=== PATIENT | male | born 1980 | race African-American/Black ===

== ENCOUNTER 2016-12-11 12:00 | Inpatient (IN) | payer OTHER ==
[2016-12-11] MEDS ORDERED: MORPHINE SULFATE 2 MG/ML SYRINGE IVP STA (12:25)
[2016-12-11] MEDS ORDERED: ONDANSETRON 4 MG/2 ML VIAL IVP STA (12:25)
[2016-12-11] MEDS ORDERED: SODIUM CHLORIDE 0.9% 500 ML IV STA (12:25)
--- NOTE | 2016-12-11 12:46 | ED ---
Abdominal Pain HPI - General Chief Complaint: Abdominal Pain Stated Complaint: Abdominal Pain Time Seen by Provider: 12/11/16 12:21 Source: patient, RN notes reviewed Mode of arrival: ambulatory Limitations: no limitations - History of Present Illness Initial Comments: 36-year-old male presents emergency Department chief complaint lower abdominal pain. Patient states his abdominal pain started yesterday worse today. Patient states is slightly nausea no vomiting. Patient states he is constipated feels that he has to go. Patient states there's severe pain right lower quadrant filling extend over the left side. Patient denies any fever, chills. Denies any chest pain, shortness breath, dysuria, hematuria, flank pain. Patient had no prior abdominal surgeries. - Related Data Allergies Allergy/AdvReac Type Severity Reaction Status Date / Time No Known Allergies Allergy Verified 12/11/16 12:07 Review of Systems ROS Statement: Those systems with pertinent positive or pertinent negative responses have been documented in the HPI. ROS Other: All systems not noted in ROS Statement are negative. Past Medical History Past Medical History: Coronary Artery Disease (CAD), Myocardial Infarction ([place]) History of Any Multi-Drug Resistant Organisms: None Reported Past Surgical History: Heart Catheterization With Stent Past Psychological History: No Psychological Hx Reported Smoking Status: Current every day smoker Past Alcohol Use History: Daily Past Drug Use History: Marijuana General Exam Limitations: no limitations General appearance: alert, in no apparent distress Head exam: Present: atraumatic, normocephalic, normal inspection Respiratory exam: Present: normal lung sounds bilaterally. Absent: respiratory distress, wheezes, rales, rhonchi, stridor Cardiovascular Exam: Present: normal rhythm, tachycardia, normal heart sounds. Absent: systolic murmur, diastolic murmur, rubs, gallop, clicks GI/Abdominal exam: Present: soft, tenderness (Tenderness diffusely to the lower abdomen), normal bowel sounds. Absent: distended, guarding, rebound, rigid Back exam: Absent: CVA tenderness (R), CVA tenderness (L) Neurological exam: Present: alert, oriented X3, CN II-XII intact Skin exam: Present: warm, dry, intact, normal color. Absent: rash Course Vital Signs 12/11/16 12/11/16 12:03 14:07 Temperature 97.5 F L Pulse Rate 110 H 77 Respiratory 20 20 Rate Blood Pressure 190/124 180/77 O2 Sat by Pulse 99 99 Oximetry Medical Decision Making - Lab Data Result diagrams: 12/11/16 13:25 12/11/16 13:25 Lab Results 12/11/16 12/11/16 12/11/16 Range/Units 13:25 13:25 15:15 WBC 13.9 H (3.8-10.6) k/uL RBC 5.44 (4.30-5.90) m/uL Hgb 16.9 (13.0-17.5) gm/dL Hct 49.6 (39.0-53.0) % MCV 91.2 (80.0-100.0) fL MCH 31.1 (25.0-35.0) pg MCHC 34.1 (31.0-37.0) g/dL RDW 13.0 (11.5-15.5) % Plt Count 278 (150-450) k/uL Neutrophils % 78 % Lymphocytes % 15 % Monocytes % 4 % Eosinophils % 2 % Basophils % 0 % Neutrophils # 10.8 H (1.3-7.7) k/uL Lymphocytes # 2.0 (1.0-4.8) k/uL Monocytes # 0.6 (0-1.0) k/uL Eosinophils # 0.3 (0-0.7) k/uL Basophils # 0.0 (0-0.2) k/uL Sodium 139 (137-145) mmol/L Potassium 4.3 (3.5-5.1) mmol/L Chloride 102 (98-107) mmol/L Carbon Dioxide 25 (22-30) mmol/L Anion Gap 12 mmol/L BUN 13 (9-20) mg/dL Creatinine 0.90 (0.66-1.25) mg/dL Est GFR (MDRD) Af Amer >60 (>60 ml/min/1.73 sqM) Est GFR (MDRD) Non-Af >60 (>60 ml/min/1.73 sqM) Glucose 120 H (74-99) mg/dL Calcium 10.0 (8.4-10.2) mg/dL Total Bilirubin 1.2 (0.2-1.3) mg/dL AST 86 H (17-59) U/L ALT 43 (21-72) U/L Alkaline Phosphatase 107 (38-126) U/L Total Protein 8.0 (6.3-8.2) g/dL Albumin 4.6 (3.5-5.0) g/dL Amylase 102 (30-110) U/L Lipase 481 H (23-300) U/L Urine Color Yellow Urine Appearance Clear (Clear) Urine pH 7.0 (5.0-8.0) Urine Protein 1+ H (Negative) Urine Glucose (UA) Negative (Negative) Urine Ketones Negative (Negative) Urine Blood Negative (Negative) Urine Nitrate Negative (Negative) Urine Bilirubin Negative (Negative) Urine Urobilinogen <2.0 (<2.0) mg/dL Ur Leukocyte Esterase Negative (Negative) Urine RBC <1 (0-5) /hpf Urine WBC 1 (0-5) /hpf Urine Mucus Occasional H (None) /hpf Disposition Clinical Impression: Alcoholic pancreatitis, Abdominal pain Disposition: ADMITTED IP TO THIS [facility] Condition: Good
[2016-12-11 13:42] LABS: Basophils % (A) 0 %; CH 32.4; CHCM 35.7; Eosinophils # (A) 0.3 k/uL (0-0.7); Eosinophils % (A) 2 %; HCT 49.6 % (39.0-53.0); HDW 2.49; HGB 16.9 gm/dL (13.0-17.5); Luc # (Auto) 0.18; Luc % (Auto) 1; Lymphocytes % (A) 15 %; MCH 31.1 pg (25.0-35.0); MCHC 34.1 g/dL (31.0-37.0); MCV 91.2 fL (80.0-100.0); Mean Platelet Volume 7.3; Monocytes # (A) 0.6 k/uL (0-1.0); Monocytes % (A) 4 %; Neutrophils # (A) 10.8 k/uL (1.3-7.7); Neutrophils % (A) 78 %; RBC 5.44 m/uL (4.30-5.90); WBC 13.9 k/uL (3.8-10.6); WBC (Perox) 15.39
--- NOTE | 2016-12-11 13:44 | XR ---
EXAMINATION TYPE: XR KUB DATE OF EXAM: 12/11/2016 1:38 PM COMPARISON: NONE HISTORY: Abdominal pain and vomiting TECHNIQUE: 2 views FINDINGS: There is no sign of intestinal obstruction or pneumoperitoneum. Fecal pattern is normal. Th ere is no sign of a mass. Lung bases are clear. There are no pathologic calcifications over the kidne ys. IMPRESSION: Nonacute abdomen.
[2016-12-11 13:54] LABS: Amylase 102 U/L (30-110); Anion Gap 12 mmol/L; Carbon Dioxide 25 mmol/L (22-30); Chloride 102 mmol/L (98-107); Glucose 120 mg/dL (74-99); Non-African American GFR(MDRD) >60 (>60 ml/min/1.73 sqM); Sodium 139 mmol/L (137-145); Total Bilirubin 1.2 mg/dL (0.2-1.3)
[2016-12-11 13:56] LABS: ALT 43 U/L (21-72); AST 86 U/L (17-59); Alkaline Phosphatase 107 U/L (38-126); Blood Urea Nitrogen 13 mg/dL (9-20); Potassium 4.3 mmol/L (3.5-5.1)
[2016-12-11] MEDS ORDERED: RX INFO: IV CONTRAST WAS GIVEN 1 EACH MISC MISCELLANE PRN (14:05)
--- NOTE | 2016-12-11 14:40 | CT ---
EXAMINATION TYPE: CT abdomen pelvis w con DATE OF EXAM: 12/11/2016 2:34 PM COMPARISON: NONE HISTORY: Generalized pain CT DLP: 543.9 mGycm Automated exposure control for dose reduction was used. TECHNIQUE: Helical acquisition of images was performed from the lung bases through the pelvis. CONTRAST: Performed without Oral Contrast and with IV Contrast, patient injected with 100 mL of Omnipaque 300. FINDINGS: Lung bases are clear. There is no pleural effusion. Liver spleen gallbladder appear normal. Bile ducts are not dilated. There is no adrenal mass. Kidneys show satisfactory contrast opacification. There is no hydronephrosis. There is no retroperitoneal ad enopathy. There is some mild fat stranding around the anterior aspect of the pancreatic head. Appendix appears normal. I see no intestinal wall thickening. There are no dilated loops. I see no du odenal wall thickening. Bony structures are intact. Bladder distends smoothly. There is no sign of a pelvic mass. There is no free fluid in the pelvis. IMPRESSION: THERE IS MILD FAT STRANDING AROUND THE PANCREATIC HEAD THAT IS SUGGESTIVE OF FOCAL PANCREATITIS. NO D ISCRETE MASS SEEN.
[2016-12-11 15:36] LABS: Appearance,Urine Clear (Clear); Bilirubin,Urine Negative (Negative); Glucose,Urine (UA) Negative (Negative); Ketones,Urine Negative (Negative); Leukocyte Esterase,Urine Negative (Negative); Mucus,Urine Occasional /hpf; Nitrite,Urine Negative (Negative); Particle Count 2000; Protein,Urine 1+ (Negative); RBC,Urine <1 /hpf (0-5); UA Billing (MACRO vs. MICRO) MICRO; Urobilinogen,Urine <2.0 mg/dL (<2.0); WBC,Urine 1 /hpf (0-5)
[2016-12-11] MEDS ORDERED: MORPHINE SULFATE 4 MG/ML SYRINGE IV PRN (15:48)
[2016-12-11] MEDS ORDERED: NALOXONE 0.4 MG/ML 1 ML VIAL IV PRN (15:48)
[2016-12-11] MEDS ORDERED: ONDANSETRON 4 MG/2 ML VIAL IVP PRN (15:48)
[2016-12-11] MEDS: SODIUM CHLORIDE 0.9% 1,000 ML IV SCH ×2 (16:06→18:00)
[2016-12-11] MEDS ORDERED: LORazepam 2 MG/ML SYRINGE IV PRN ×2 (17:05)
[2016-12-11] MEDS ORDERED: THIAMINE 100 MG/ML 2 ML VIAL IM STA (17:08)
[2016-12-11 17:09] LABS: Specific Gravity,Urine >1.050 (1.001-1.035)
[2016-12-11 17:32] VITALS: BMI 24.3
[2016-12-11] MEDS: cloNIDine HCL 0.1 MG TAB PO SCH ×2 (17:56→23:23)
[2016-12-11] MEDS: THIAMINE 100 MG TAB PO SCH (17:56)
[2016-12-11] MEDS: HYDROmorphone 1 MG/ML 1 ML SYRINGE IVP PRN ×3 (17:56→23:25)
--- NOTE | 2016-12-11 19:16 | HP ---
DATE OF ADMISSION: CHIEF COMPLAINT: Abdominal pain. HISTORY OF PRESENT ILLNESS: This is first known admission for this 36-year-old Afro[place] who drinks heavily. He stopped drinking about 2 days ago. He has had epigastric pain for the last 30 hours and grew more severe. He has had some nausea and vomiting. He came to emergency room where his lipase was over 400. Amylase was normal. REVIEW OF SYSTEMS: He has had no fever, chills, problems with diabetes, blackouts, seizures, heart disease, kidney disease, diabetes, etc. Past medical history is otherwise unremarkable and noncontributory. He does have coronary artery disease and has had a stent placed. He is not allergic to any medication. He does take lisinopril for his blood pressure and is also on Plavix. Blood alcohol was over 500. He does smoke a pack of cigarettes a day. PHYSICAL EXAMINATION: Blood pressure 188/114 with a pulse of 94, respirations of 41, and he is afebrile. In general, he appeared to be slender and uncomfortable. Skin was dry. Lymph nodes not enlarged. Head, ears, eyes, nose, mouth, and throat were normal. Neck veins not distended. Thyroid is not enlarged. Chest is clear. Cardiac exam demonstrated sinus tachycardia. The abdomen is flat and tender over the epigastrium. Bowel sounds present. Extremities are normal. Neurologically, he is intact. ADMITTING DIAGNOSIS: 1. Alcoholic pancreatitis. 2. Alcoholism. 3. Hypertension. PLAN: 1. Bed rest. 2. IV fluids. 3. N.p.o. 4. Analgesia. 5. Control hypertension with Catapres 0.3 t.i.d. 6. Drug screen.
[2016-12-11] MEDS: NICOTINE 14MG/24HR PATCH TRANSDERM SCH (20:23)
[2016-12-12] MEDS: HYDROmorphone 1 MG/ML 1 ML SYRINGE IVP PRN ×8 (01:25→21:10)
[2016-12-12] MEDS: cloNIDine HCL 0.1 MG TAB PO SCH ×3 (08:47→23:04)
[2016-12-12] MEDS: THIAMINE 100 MG TAB PO SCH ×2 (12:06→15:07)
[2016-12-12] MEDS: NICOTINE 14MG/24HR PATCH TRANSDERM SCH (12:06)
[2016-12-12] MEDS: SODIUM CHLORIDE 0.9% 1,000 ML IV SCH ×2 (12:06→23:03)
[2016-12-12] MEDS: LORazepam 2 MG/ML SYRINGE IV PRN ×2 (13:59→19:57)
--- NOTE | 2016-12-12 22:03 | PN ---
DATE OF SERVICE: 12/12/2016 CHIEF COMPLAINT: Acute pancreatitis. HISTORY OF PRESENT ILLNESS: The gentleman is doing fairly well but he is still complaining of a lot of epigastric pain and wants more narcotics. PHYSICAL EXAM: A little bit tender over the epigastrium. CHEST: Clear. CARDIAC: Normal. IMPRESSION: Pancreatitis. PLAN: Continue with conservative management. His numbers are improving.
[2016-12-12] MEDS: POLYETHYLENE GLYCOL 3350 17 GM POWD.PACK PO SCH (23:03)
[2016-12-13] MEDS: SODIUM CHLORIDE 0.9% 1,000 ML IV SCH ×3 (01:38→16:30)
[2016-12-13] MEDS: HYDROmorphone 1 MG/ML 1 ML SYRINGE IM PRN ×2 (04:56→20:07)
[2016-12-13] MEDS ORDERED: LORazepam 1 MG TAB PO STA (05:58)
[2016-12-13] MEDS: cloNIDine HCL 0.1 MG TAB PO SCH ×3 (08:03→22:59)
[2016-12-13] MEDS: POLYETHYLENE GLYCOL 3350 17 GM POWD.PACK PO SCH ×2 (08:04→20:21)
[2016-12-13] MEDS: HYDROmorphone 1 MG/ML 1 ML SYRINGE IVP PRN ×2 (08:20→22:56)
[2016-12-13] MEDS: THIAMINE 100 MG TAB PO SCH ×2 (12:58→16:29)
[2016-12-13] MEDS: NICOTINE 14MG/24HR PATCH TRANSDERM SCH (12:59)
[2016-12-13] MEDS: LORazepam 1 MG TAB PO PRN ×3 (12:59→19:59)
--- NOTE | 2016-12-13 14:27 | PN ---
DATE OF SERVICE: 12/13/2016 CHIEF COMPLAINT: Persistent epigastric pain. HISTORY OF PRESENT ILLNESS: This gentleman is still having a lot of epigastric pain. He has had no vomiting, he has had no fever or chills. The IV cannot be restarted and he will require a central line. GENERAL EXAM: His chest is clear and cardiac exam is normal and he is very tender over the epigastrium. IMPRESSION Acute alcoholic pancreatitis. PLAN: 1. We have started IV. 2. Repeat labs.
[2016-12-14] MEDS: LORazepam 1 MG TAB PO PRN ×6 (01:32→21:57)
[2016-12-14] MEDS: HYDROmorphone 1 MG/ML 1 ML SYRINGE IVP PRN (02:01)
[2016-12-14] MEDS: SODIUM CHLORIDE 0.9% 1,000 ML IV SCH ×3 (03:02→16:23)
[2016-12-14] MEDS: HYDROmorphone 1 MG/ML 1 ML SYRINGE IM PRN (04:30)
[2016-12-14] MEDS: HYDROcodone/APAP 7.5-325MG 1 EACH TAB PO PRN ×3 (09:36→19:51)
[2016-12-14] MEDS: cloNIDine HCL 0.1 MG TAB PO SCH ×3 (09:36→21:55)
[2016-12-14] MEDS: NICOTINE 14MG/24HR PATCH TRANSDERM SCH (09:37)
[2016-12-14] MEDS: POLYETHYLENE GLYCOL 3350 17 GM POWD.PACK PO SCH ×2 (09:37→19:51)
[2016-12-14 10:03] LABS: ALT 33 U/L (21-72); AST 59 U/L (17-59); Alkaline Phosphatase 104 U/L (38-126); Anion Gap 11 mmol/L; Blood Urea Nitrogen 19 mg/dL (9-20); Calcium 8.6 mg/dL (8.4-10.2); Carbon Dioxide 26 mmol/L (22-30); Chloride 100 mmol/L (98-107); Cholesterol 118 mg/dL (<200); Glucose 159 mg/dL (74-99); HDL Cholesterol 61 mg/dL (40-60); Non-African American GFR(MDRD) >60 (>60 ml/min/1.73 sqM); Potassium 4.4 mmol/L (3.5-5.1); Sodium 137 mmol/L (137-145); Total Bilirubin 1.7 mg/dL (0.2-1.3); Total Protein 6.5 g/dL (6.3-8.2); Triglycerides 68 mg/dL (<150)
[2016-12-14 10:21] LABS: Amylase 482 U/L (30-110)
[2016-12-14] MEDS: THIAMINE 100 MG TAB PO SCH ×2 (10:49→16:24)
--- NOTE | 2016-12-14 11:33 | P.PN ---
Subjective 56-year-old gentleman who presented admission emergency room with a chief complaint of developing lower abdominal pain. Patient stated he felt slightly nausea no vomiting. Patient stated the pain was in the right lower quadrant extended to the left. There was no fever chills. Patient has had no prior abdominal surgeries patient reportedly drinks alcohol daily. Patient was admitted and treated for acute pancreatitis. The lipase on the was 1976, amylase 482 patient was started on IV fluids and bowel rest Objective - Vital Signs Vital signs: Vital Signs Temp 98.4 F 12/14/16 07:00 Pulse 111 H 12/14/16 07:00 Resp 16 12/14/16 08:00 BP 134/82 12/14/16 07:00 Pulse Ox 94 L 12/14/16 07:00 Intake & Output 12/13/16 12/14/16 12/14/16 18:59 06:59 18:59 Intake Total 120 620 Output Total 100 100 Balance 20 520 Intake: IV 500 Sodium Chloride 0.9% 1, 500 000 ml @ 125 mls/hr IV . Q8H [facility] Rx#:[id number] Oral 120 120 Output: Urine 100 100 Other: Voiding Method Toilet Toilet Toilet # Voids 2 3 - Exam Physical exam 36-year-old resting in bed continues to report having diffuse abdominal pain Lungs essentially clear adequate air movement Heart S1-S2 audible regular Abdomen diffuse tenderness across the abdominal wall Extremities no edema noted - Labs CBC & Chem 7: 12/11/16 13:25 12/14/16 09:13 Labs: Abnormal Lab Results - Last 24 Hours (Table) 12/14/16 Range/Units 09:13 Glucose 159 H (74-99) mg/dL Total Bilirubin 1.7 H (0.2-1.3) mg/dL HDL Cholesterol 61 H (40-60) mg/dL Amylase 482 H* (30-110) U/L Lipase 1976 H (23-300) U/L Assessment and Plan Plan: Impression Present on admission abdominal pain suspect due to acute pancreatitis due to chronic alcoholism Present on admission elevated lipase amylase CAT scan abdomen and pelvis suggestive of focal pancreatitis Plan Continue IV fluid as ordered Pain control Clear liquid diet DVT and GI prophylaxis Further recommendations pending The above dictated assessment and findings were discussed with dr jackson . Impression and the plan of care have been dictated as directed. Mayra Ovalle nurse practitioner acting as a scribe for dr schulte
--- NOTE | 2016-12-14 21:38 | PN ---
DATE OF SERVICE: 12/14/2016 CHIEF COMPLAINT: Continued epigastric pain due to pancreatitis. HISTORY OF PRESENT ILLNESS: The gentleman is just about the same. A central line has been placed. PHYSICAL EXAMINATION: He is afebrile. Chest is clear. He is still pump operator over the epigastrium. Bowel sounds are diminished. IMPRESSION: 1. Pancreatitis. 2. Dehydration. PLAN: Continue to follow for his pancreatitis. Hopefully home soon.
[2016-12-14] MEDS: FAMOTIDINE 20 MG TAB PO SCH (21:55)
[2016-12-15] MEDS: HYDROcodone/APAP 7.5-325MG 1 EACH TAB PO PRN ×4 (00:22→21:53)
[2016-12-15] MEDS: LORazepam 1 MG TAB PO PRN ×3 (00:23→05:06)
[2016-12-15] MEDS: SODIUM CHLORIDE 0.9% 1,000 ML IV SCH ×3 (01:37→17:57)
[2016-12-15] MEDS: POLYETHYLENE GLYCOL 3350 17 GM POWD.PACK PO SCH ×2 (08:30→21:54)
[2016-12-15] MEDS: cloNIDine HCL 0.1 MG TAB PO SCH ×2 (08:30→21:54)
[2016-12-15] MEDS: FAMOTIDINE 20 MG TAB PO SCH ×2 (08:30→21:54)
[2016-12-15] MEDS: NICOTINE 14MG/24HR PATCH TRANSDERM SCH (08:31)
[2016-12-15 08:35] LABS: ALT 32 U/L (21-72); AST 40 U/L (17-59); Alkaline Phosphatase 94 U/L (38-126); Amylase 205 U/L (30-110); Anion Gap 8 mmol/L; Blood Urea Nitrogen 13 mg/dL (9-20); Calcium 7.8 mg/dL (8.4-10.2); Carbon Dioxide 25 mmol/L (22-30); Chloride 101 mmol/L (98-107); Glucose 114 mg/dL (74-99); Non-African American GFR(MDRD) >60 (>60 ml/min/1.73 sqM); Potassium 3.6 mmol/L (3.5-5.1); Sodium 134 mmol/L (137-145); Total Bilirubin 1.9 mg/dL (0.2-1.3); Total Protein 5.4 g/dL (6.3-8.2)
--- NOTE | 2016-12-15 09:24 | P.PN ---
Subjective 36-year-old male being seen in rounds currently is taking a clear liquid diet patient states less abdominal pain but abdominal pain persist patient states " I just moved to this area from [facility] prior to moving was drinking alcohol at least 3 times a week since moving to this area has not drank any alcohol. Patient denies any nausea vomiting. Is a current every day smoker. Patient had no IV access for the last 48 hours repeat labs lipase and amylase were trending up. Did gain IV access on the patient was rehydrated amylase and lipase are currently trending down the lipase is down to 619 in the amylase 205 Objective - Vital Signs Vital signs: Vital Signs Temp 98.3 F 12/15/16 07:00 Pulse 81 12/15/16 07:00 Resp 16 12/15/16 07:00 BP 125/62 12/15/16 07:00 Pulse Ox 92 L 12/15/16 07:00 Intake & Output 12/14/16 12/15/16 12/15/16 18:59 06:59 18:59 Intake Total 750 2325 Output Total 100 Balance 750 2225 Intake: IV 750 1625 Sodium Chloride 0.9% 1, 750 1625 000 ml @ 125 mls/hr IV . Q8H [facility] Rx#:[id number] Oral 700 Output: Urine 100 Other: Voiding Method Toilet Toilet Toilet # Voids 2 2 - Exam Physical exam 36-year-old resting in bed sitting up taking a diet states less abdominal pain Lungs essentially clear adequate air movement no shortness of breath Heart S1-S2 audible regular Abdomen diffuse tenderness across the abdominal wall reports no nausea vomiting Extremities no edema noted - Labs CBC & Chem 7: 12/11/16 13:25 12/15/16 07:28 Labs: Abnormal Lab Results - Last 24 Hours (Table) 12/14/16 12/15/16 Range/Units 09:13 07:28 Sodium 134 L (137-145) mmol/L Glucose 159 H 114 H (74-99) mg/dL Calcium 7.8 L (8.4-10.2) mg/dL Total Bilirubin 1.7 H 1.9 H (0.2-1.3) mg/dL Total Protein 5.4 L (6.3-8.2) g/dL Albumin 2.7 L (3.5-5.0) g/dL HDL Cholesterol 61 H (40-60) mg/dL Amylase 482 H* 205 H (30-110) U/L Lipase 1976 H 619 H (23-300) U/L Assessment and Plan Plan: Impression Present on admission abdominal pain suspect due to acute pancreatitis due to chronic alcoholism Present on admission elevated lipase amylase likely due to acute pancreatitis CAT scan abdomen and pelvis suggestive of acute pancreatitis Chronic alcoholism Positive urine drug screen on admission marijuana and opiate Plan Continue IV fluid as ordered Pain control Clear liquid diet advance diet DVT and GI prophylaxis Prepped for discharge soon Further recommendations pending The above dictated assessment and findings were discussed with dr jackson . Impression and the plan of care have been dictated as directed. Mayra Ovalle nurse practitioner acting as a scribe for dr schulte
[2016-12-15] MEDS: THIAMINE 100 MG TAB PO SCH ×2 (11:36→18:05)
[2016-12-15] MEDS: LORazepam 0.5 MG TAB PO PRN (18:05)
--- NOTE | 2016-12-15 18:10 | PN ---
DATE OF SERVICE: 12/15/2016 CHIEF COMPLAINT: Pancreatitis. HISTORY OF PRESENT ILLNESS: This gentleman continues to struggle. He still has epigastric pain and his numbers are not responding. PHYSICAL EXAMINATION: He is still operator in the epigastrium. His chest is clear. Cardiac exam is normal. IMPRESSION: Pancreatitis. PLAN: Continue to follow amylase and lipase as well as his discomfort.
[2016-12-16] MEDS: LORazepam 0.5 MG TAB PO PRN (05:00)
[2016-12-16] MEDS: HYDROcodone/APAP 7.5-325MG 1 EACH TAB PO PRN (06:05)
[2016-12-16] MEDS: SODIUM CHLORIDE 0.9% 1,000 ML IV SCH (06:27)
[2016-12-16 07:59] VITALS: BP 179/98; PULSE 86; RESP 16; TEMP 99
[2016-12-16] MEDS: FAMOTIDINE 20 MG TAB PO SCH (08:31)
[2016-12-16] MEDS: NICOTINE 14MG/24HR PATCH TRANSDERM SCH (08:31)
[2016-12-16] MEDS: POLYETHYLENE GLYCOL 3350 17 GM POWD.PACK PO SCH (08:32)
[2016-12-16] MEDS: cloNIDine HCL 0.1 MG TAB PO SCH (08:32)
[2016-12-16 09:18] LABS: Basophils % (A) 0 %; CH 31.6; CHCM 33.2; Eosinophils # (A) 0.1 k/uL (0-0.7); Eosinophils % (A) 1 %; HCT 42.5 % (39.0-53.0); Luc % (Auto) 3; Lymphocytes # (A) 1.1 k/uL (1.0-4.8); Lymphocytes % (A) 8 %; MCH 31.3 pg (25.0-35.0); MCHC 32.8 g/dL (31.0-37.0); MCV 95.6 fL (80.0-100.0); Mean Platelet Volume 7.6; Monocytes # (A) 1.1 k/uL (0-1.0); Monocytes % (A) 8 %; Neutrophils # (A) 11.9 k/uL (1.3-7.7); Neutrophils % (A) 80 %; RBC 4.44 m/uL (4.30-5.90); RDW 12.8 % (11.5-15.5); WBC 14.8 k/uL (3.8-10.6); WBC (Perox) 15.37
[2016-12-16 09:31] LABS: HGB 13.9 gm/dL (13.0-17.5)
[2016-12-16 09:34] LABS: Amylase 84 U/L (30-110)
--- NOTE | 2016-12-16 10:25 | P.DS ---
Providers Date of admission: 12/12/16 08:41 Expected date of discharge: 12/16/16 Attending physician: Howard Schulte Primary care physician: Physician Nonstaff Hospital Course: 36-year-old admitted on the day of admission to the emergency room after patient stated that he developed left lower abdominal pain radiated across the abdomen. Stated he felt nauseated. Patient stated that he just moved to this area from [place] prior to moving was drinking alcohol at least 3-4 times a week stated he moved to this area to not be around people who drink alcohol. Patient was admitted to the services of the attending. Patient had no IV access for the first 48 hours the lipase and amylase were up. IV access was obtainable on the patient was rehydrated. The amylase and lipase trended down. Patient's abdominal pain had improved. Patient was felt to be appropriate proceed with a discharge to home. Patient was counseled at length about stop drinking alcohol . Was discussed with the patient by the primary care provider the patient would not be given a prescription for [place] and the patient could use [id number] Tylenol no more than 4 in a day for abdominal discomfort. On admission the amylase 482 the day of discharge down to 84 lipase on 12/15/1975 day of discharge down to 251 patient's urine drug screen was positive for opiates and marijuana Impression discharge diagnosis Present on admission abdominal pain suspect due to acute pancreatitis due to chronic alcoholism Present on admission elevated lipase amylase likely due to acute pancreatitis CAT scan abdomen and pelvis suggestive of acute pancreatitis Chronic alcoholism Positive urine drug screen on admission marijuana and opiate The above dictated assessment and findings were discussed with dr schulte Impression and the plan of care have been dictated as directed. Mayra Ovalle nurse practitioner acting as a scribe for dr schulte Patient Condition at Discharge: Good Plan - Discharge Summary New Discharge Prescriptions: Acetaminophen Tab [Tylenol Tab] 650 mg PO Q4H PRN #30 tablet PRN Reason: Muscle Pain Discharge Medication List Acetaminophen Tab [Tylenol Tab] 650 mg PO Q4H PRN #30 tablet 12/16/16 [Rx] Follow up Appointment(s)/Referral(s): Howard Schulte MD [STAFF PHYSICIAN] - 12/18/16 11:10 am Activity/Diet/Wound Care/Special Instructions: Patient was instructed about stop drinking alcohol Discharge Disposition: HOME SELF-CARE
--- NOTE | 2016-12-16 20:31 | PN ---
CHIEF COMPLAINT: Pancreatitis. HISTORY OF PRESENT ILLNESS: This gentleman is doing well and his enzymes are back down. He can go home, but he is very worried about pain medicine at home, but he is told to take plain Tylenol. PHYSICAL EXAM: Chest is clear and cardiac is normal. The abdomen is soft and flat. IMPRESSION: 1. Alcoholic pancreatitis. 2. Alcoholism. PLAN: Home today and this will be arranged by the nurse practitioner.
== END 2016-12-16 10:20 | disposition left against medical advice (07) | DRG 440 ==
LOC: EC 12:00 → 3OBS 15:55 → OBSVTOIN 12-12 08:41 → 5ONC 12-12 09:30
PROVIDERS: ADMIT Family Medicine; ATTEND Family Medicine
DX: K85.20 Alcohol induced acute pancreatitis without necrosis or infection (principal); I10 Essential (primary) hypertension; E86.0 Dehydration; K59.00 Constipation, unspecified; I25.2 Old myocardial infarction; Z71.41 Alcohol abuse counseling and surveillance of alcoholic; F10.20 Alcohol dependence, uncomplicated; F12.90 Cannabis use, unspecified, uncomplicated; I25.10 Atherosclerotic heart disease of native coronary artery without angina pectoris; R00.0 Tachycardia, unspecified; F17.210 Nicotine dependence, cigarettes, uncomplicated; R11.2 Nausea with vomiting, unspecified; Z79.02 Long term (current) use of antithrombotics/antiplatelets; Z79.899 Other long term (current) drug therapy; Z95.5 Presence of coronary angioplasty implant and graft; Z53.21 Procedure and treatment not carried out due to patient leaving prior to being seen by health care provider; Y90.0 Blood alcohol level of less than 20 mg/100 ml
CPT/HCPCS: 36415; 74000; 74177; 80053; 80061; 80306; 81001; 82150; 83690; 85025; 96361; 96374; 96375; 96376; 99285

== ENCOUNTER 2017-02-09 10:23 | Observation (INO) | payer OTHER ==
[2017-02-09] MEDS ORDERED: NITROGLYCERIN SL TABS 0.4 MG TAB SUBLINGUAL STA ×3 (10:49)
[2017-02-09] MEDS ORDERED: ASPIRIN 81 MG CHEW PO STA (10:49)
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
[2017-02-09] MEDS ORDERED: LORazepam 2 MG/ML SYRINGE IV STA (11:11)
[2017-02-09 11:15] LABS: Basophils % (A) 1 %; CH 32.3; CHCM 34.6; Eosinophils # (A) 0.1 k/uL (0-0.7); Eosinophils % (A) 2 %; HCT 46.8 % (39.0-53.0); HDW 2.53; HGB 15.7 gm/dL (13.0-17.5); Luc # (Auto) 0.14; Luc % (Auto) 2; Lymphocytes % (A) 33 %; MCH 31.5 pg (25.0-35.0); MCHC 33.6 g/dL (31.0-37.0); Mean Platelet Volume 6.9; Monocytes # (A) 0.3 k/uL (0-1.0); Monocytes % (A) 5 %; Neutrophils # (A) 3.5 k/uL (1.3-7.7); Neutrophils % (A) 57 %; RBC 4.99 m/uL (4.30-5.90); RDW 15.3 % (11.5-15.5); WBC (Perox) 6.03
[2017-02-09 11:18] LABS: ALT 58 U/L (21-72); AST 134 U/L (17-59); Alkaline Phosphatase 78 U/L (38-126); Amylase 69 U/L (30-110); Anion Gap 13 mmol/L; Blood Urea Nitrogen 11 mg/dL (9-20); Carbon Dioxide 24 mmol/L (22-30); Chloride 108 mmol/L (98-107); Glucose 166 mg/dL (74-99); Non-African American GFR(MDRD) >60 (>60 ml/min/1.73 sqM); Sodium 145 mmol/L (137-145); Total Bilirubin 0.6 mg/dL (0.2-1.3); Total Protein 7.4 g/dL (6.3-8.2)
[2017-02-09 11:25] LABS: INR 1.1 (<1.1); Partial Thromboplastin Time 25.6 sec (22.0-30.0)
[2017-02-09] MEDS ORDERED: RX INFO: IV CONTRAST WAS GIVEN 1 EACH MISC MISCELLANE PRN (11:27)
--- NOTE | 2017-02-09 11:32 | XR ---
EXAMINATION TYPE: XR abdomen 1V DATE OF EXAM: 02/09/2017 11:23 AM COMPARISON: NONE HISTORY: Pain TECHNIQUE: One view abdominal series FINDINGS: The osseous structures are intact. The bowel gas pattern is nonspecific. Lung bases are clear. No fine spicious calcifications. IMPRESSION: 1. Nonspecific abdomen.
--- NOTE | 2017-02-09 11:34 | XR ---
EXAMINATION TYPE: XR chest 2V DATE OF EXAM: 02/09/2017 11:23 AM COMPARISON: NONE TECHNIQUE: PA and lateral views submitted. HISTORY: Chest pain FINDINGS: The lungs are clear and there is no pneumothorax, pleural effusion, or focal pneumonia. Right-sided AC joint arthropathy. IMPRESSION: 1. No acute process.
[2017-02-09 11:43] LABS: Creatine Kinase MB 1.5 ng/mL (0.0-2.4); Troponin I 0.021 ng/mL (0.000-0.034)
[2017-02-09] MEDS ORDERED: NITROGLYCERIN OINT 1 INCH/GM PACKET TOPICAL STA (12:05)
[2017-02-09] MEDS ORDERED: ATENOLOL 25 MG TAB PO STA (12:05)
--- NOTE | 2017-02-09 12:35 | CT ---
EXAMINATION TYPE: CT angio chest DATE OF EXAM: 02/09/2017 12:22 PM COMPARISON: Radiograph same date HISTORY: 36-year-old male complains of chest pain and difficulty breathing with a history of prior [place] . TECHNIQUE: Contiguous axial scanning of the chest performed with IV Contrast, patient injected with 1 00 mL of Omnipaque 350. Coronal/sagittal MIP reconstructions performed. CT DLP: 251.4 mGycm Automated exposure control for dose reduction was used. FINDINGS: The heart is normal size without pericardial effusion. Coronary vessel calcifications are present in remarkable for coronary artery disease. Aorta is normal caliber with conventional arch vessel branching anatomy. No thoracic lymphadenopathy by CT size criteria. Evaluation of the lungs shows prominent dependent atelectasis and mild diffuse bronchial wall thicken ing. There is mild emphysematous change in the upper lungs and emphysematous cyst anterior left upper lobe. Satisfactory opacification of the pulmonary arterial system. There is respiratory motion in the lower lobes. This causes significant heterogeneity within some of the basilar segmental and subsegmental b ranches of the left lower lobe. Otherwise, no evidence for pulmonary embolus. There is a small hiatal hernia. Visualized upper abdomen shows no gross abnormality. Bones: No osseous destructive process. IMPRESSION: 1. LIMITED ASSESSMENT FOR PULMONARY EMBOLUS WITHIN THE BASILAR LEFT LOWER LOBE DUE TO RESPIRATORY MOT ION. NO EVIDENCE FOR PULMONARY EMBOLUS ELSEWHERE WITHIN THE LUNGS. 2. COPD WITH MILD EMPHYSEMA. BRONCHIAL WALL THICKENING COULD REPRESENT A PROMINENT COMPONENT OF CHRON IC BRONCHITIS OR SUPERIMPOSED ACUTE BRONCHITIS. 3. SMALL HIATAL HERNIA.
[2017-02-09] MEDS ORDERED: HEPARIN SODIUM,PORCINE 5,000 UNIT/ML 1 ML VIAL IV PRN (12:41)
[2017-02-09] MEDS ORDERED: HEPARIN SODIUM,PORCINE 5,000 UNIT/ML 1 ML VIAL IV ONE (12:41)
[2017-02-09] MEDS ORDERED: NITROGLYCERIN SL TABS 0.4 MG TAB SUBLINGUAL PRN (12:41)
[2017-02-09] MEDS ORDERED: HEPARIN SODIUM,PORCINE/D5W PMX 25,000 UNIT in DEXTROSE/WATER 1 500ML.BAG IV SCH (12:45)
[2017-02-09] MEDS ORDERED: ACETAMINOPHEN TAB 500 MG TAB PO STA (15:19)
[2017-02-09] MEDS ORDERED: ACETAMINOPHEN TAB 325 MG TAB PO PRN (16:34)
[2017-02-09] MEDS ORDERED: MELATONIN 5 MG TABLET PO PRN (16:39)
[2017-02-09] MEDS: NITROGLYCERIN OINT 1 INCH/GM PACKET TOPICAL SCH (18:54)
[2017-02-09] MEDS: LISINOPRIL 20 MG TAB PO SCH (19:04)
[2017-02-09 19:18] LABS: Creatine Kinase MB 1.7 ng/mL (0.0-2.4); Troponin I 0.019 ng/mL (0.000-0.034)
[2017-02-09] MEDS ORDERED: MELATONIN 5 MG TABLET PO SCH (21:00)
[2017-02-09] MEDS ORDERED: cloNIDine HCL 0.1 MG TAB PO PRN (21:20)
[2017-02-09] MEDS ORDERED: HYDROmorphone 1 MG/ML 1 ML SYRINGE IVP PRN (21:20)
[2017-02-09] MEDS ORDERED: hydrALAZINE HCL 20 MG/ML 1 ML VIAL IVP PRN (21:20)
[2017-02-09] MEDS ORDERED: TEMAZEPAM 15 MG CAP PO PRN (21:20)
[2017-02-09] MEDS ORDERED: THIAMINE 100 MG/ML 2 ML VIAL IM STA (21:23)
[2017-02-09] MEDS ORDERED: LORazepam 2 MG/ML SYRINGE IV PRN (21:23)
[2017-02-09] MEDS: LORazepam 2 MG/ML SYRINGE IV PRN (21:49)
[2017-02-09] MEDS: METOPROLOL TARTRATE 25 MG TAB PO SCH (21:50)
[2017-02-09] MEDS: amLODIPine 5 MG TAB PO SCH (22:48)
[2017-02-09] MEDS: NICOTINE 14MG/24HR PATCH TRANSDERM SCH (22:48)
[2017-02-09] MEDS: THIAMINE 100 MG TAB PO SCH (22:53)
[2017-02-09 23:12] LABS: Creatine Kinase MB 1.5 ng/mL (0.0-2.4); Troponin I 0.013 ng/mL (0.000-0.034)
[2017-02-10] MEDS: LORazepam 2 MG/ML SYRINGE IV PRN ×2 (02:44→15:20)
[2017-02-10 03:35] LABS: Basophils # (A) 0.1 k/uL (0-0.2); Basophils % (A) 1 %; CH 32.3; CHCM 34.1; Eosinophils # (A) 0.2 k/uL (0-0.7); Eosinophils % (A) 3 %; HDW 2.52; HGB 16.1 gm/dL (13.0-17.5); Luc # (Auto) 0.16; Luc % (Auto) 3; Lymphocytes # (A) 2.3 k/uL (1.0-4.8); Lymphocytes % (A) 36 %; MCH 30.7 pg (25.0-35.0); MCHC 32.2 g/dL (31.0-37.0); MCV 95.2 fL (80.0-100.0); Mean Platelet Volume 7.1; Monocytes # (A) 0.3 k/uL (0-1.0); Monocytes % (A) 5 %; Neutrophils # (A) 3.4 k/uL (1.3-7.7); Neutrophils % (A) 52 %; RBC 5.25 m/uL (4.30-5.90); RDW 15.1 % (11.5-15.5); WBC 6.5 k/uL (3.8-10.6)
[2017-02-10 03:53] LABS: ALT 51 U/L (21-72); AST 58 U/L (17-59); Alkaline Phosphatase 79 U/L (38-126); Anion Gap 8 mmol/L; Blood Urea Nitrogen 11 mg/dL (9-20); Calcium 9.3 mg/dL (8.4-10.2); Carbon Dioxide 25 mmol/L (22-30); Chloride 103 mmol/L (98-107); Cholesterol 199 mg/dL (<200); Glucose 103 mg/dL (74-99); HDL Cholesterol 91 mg/dL (40-60); Magnesium 1.9 mg/dL (1.6-2.3); Non-African American GFR(MDRD) >60 (>60 ml/min/1.73 sqM); Potassium 3.9 mmol/L (3.5-5.1); Sodium 136 mmol/L (137-145); Triglycerides 137 mg/dL (<150)
[2017-02-10] MEDS: cloNIDine HCL 0.1 MG TAB PO SCH ×4 (04:51→21:36)
[2017-02-10] MEDS: NITROGLYCERIN OINT 1 INCH/GM PACKET TOPICAL SCH ×3 (04:52→20:48)
--- NOTE | 2017-02-10 05:18 | HP ---
DATE OF ADMISSION: CHIEF COMPLAINT: Chest pain. HISTORY OF PRESENT ILLNESS: This 36-year-old gentleman with a past medical history of CAD, history of heart attacks in 2009 and 2012 with stents, hypertension, hyperlipidemia, myocardial infarction, history of pancreatitis, EtOH, history of anxiety and depression being followed by a primary physician in [place], Dr. Salazar Fauts, was visiting friends in [place]. The patient apparently had chest pains in the anterior part of the chest which are heavy in character. The patient apparently had an argument and the pain initially felt indigestion in the chest and there is some associated shortness of breath and some sweating and because of multiple symptomatology, patient came to [facility] and was admitted for further evaluation and treatment. The patient is slightly fidgety at this time, otherwise, the creatine kinase is 240, troponin 0.021 and 0.019 and an EKG done on admission showed normal sinus rhythm and diffuse ST-T changes and poor baseline also. A chest CT was also done, which showed limited assessment for pulmonary embolism with basilar left lower lobe, otherwise, no other evidence and COPD with mild emphysema and small hiatal hernia. There is no history of any fever, rigors. No history headaches, loss of consciousness or seizures at this time. PAST MEDICAL HISTORY: History of CAD, stent, history of hypertension, hyperlipidemia, myocardial infarction, anxiety, depression. Medications prior to admission include none. ALLERGIES: SEAFOOD. FAMILY HISTORY: History of CVA, TIA, diabetes mellitus, hypertension. SOCIAL HISTORY: History of smoking, history of occasional THC, history of alcohol. REVIEW OF SYSTEMS: ENT: No history of diminished hearing or diminished vision. CARDIOVASCULAR: As mentioned earlier. RESPIRATORY: As mentioned earlier. GI: No nausea. : No dysuria. NERVOUS SYSTEM: No numbness or weakness. ALLERGY/IMMUNOLOGY: No asthma or hayfever. MUSCULOSKELETAL: As mentioned earlier. HEMATOLOGY/ONCOLOGY: No history of anemia. ENDOCRINE: No history of diabetes mellitus or hypothyroidism. CONSTITUTIONAL: As mentioned earlier. DERMATOLOGY: Negative. RHEUMATOLOGY: Negative. PSYCHIATRY: As mentioned earlier. PHYSICAL EXAMINATION: The patient is alert and oriented x3. Pulse is 64, blood pressure 194/127, respirations 14, temperature 98.1, pulse ox 99% on room air. HEENT: Conjunctivae normal. Oral mucosa moist. NECK: No jugular venous distention. No carotid bruit. No lymph node enlargement. CARDIOVASCULAR: S1 and S2, muffled. No S3, no S4. RESPIRATORY: Breath sounds diminished at the bases. No rhonchi, no crackles. ABDOMEN: Soft, nontender. No mass palpable. No hepatosplenomegaly. LEGS: No edema, no swelling. NERVOUS SYSTEM: Higher function as mentioned. Moves all 4 limbs. No focal motor or sensory deficits. LYMPHATICS: No lymphadenopathy of neck, axillae or groin. SKIN: No ulcers, rashes or bleeding. Labs are at this time shows CBC within normal limits. D-dimer 0.80. Otherwise, glucose 166, CK noted. ASSESSMENT: 1. Chest pain for evaluation, rule out unstable angina. 2. Hypertensive urgency and accelerated hypertension. 3. Increased random blood sugar. 4. Increased AST, possibly alcoholic hepatitis. 5. History of EtOH. 6. Increased CK with troponins up to 0.021. 7. on the EKG. 8. History of coronary artery disease, stents. 9. Hypertension, essential. 10. Hyperlipidemia. 11. History of myocardial infarction. 12. History of EtOH and pancreatitis recently. 13. History of head injury. 14. History of anxiety, depression, not otherwise specified. 15. History of THC. 16. FULL CODE. RECOMMENDATIONS AND DISCUSSION: This 36-year-old gentleman who presented with multiple complex medical issues. Will monitor the patient closely. Continue the current medications. Continue symptomatic treatment. We will rule out myocardial infarction. Unstable angina protocol. Otherwise, closely follow with Cardiology. Symptomatic treatment for the pain and I would also recommend a [facility] protocol, drug screens. See orders for details. We will check serum EtOH. For the blood pressure, I will recommend clonidine on a regular bases as well as p.r.n. also. Overall prognosis guarded because of multiple complex medical issues. We will closely monitor. We will also obtain a [employer] and crm consult for continued followup and evaluation including outpatient rehab as well. I would also recommend patient to follow up with his primary care physician closely as well. Prognosis guarded. Further recommendations to follow. MTDD
--- NOTE | 2017-02-10 08:08 | P.CRDCN ---
History of Present Illness Consult date: 02/10/17 Chief complaint: Chest discomfort History of present illness: This is a pleasant 36-year-old -[place] gentleman with a past medical history significant for CAD and prior stenting of the LAD was performed in length, hypertension, dyslipidemia, and significant history of smoking, presented to the emergency room complaining of chest discomfort. He describes ongoing chest discomfort across the chest as a pressure kind of discomfort without any radiation. The cardiac enzymes were checked and came in to be unremarkable. The EKG showed sinus rhythm with biphasic T waves in the anterior leads. I am concerned about severe underlying CAD behind his ongoing chest discomfort and I am recommending proceeding with heart catheterization. Past Medical History Past Medical History: Coronary Artery Disease (CAD), Hyperlipidemia, Hypertension, Myocardial Infarction ([place]) Additional Past Medical History / Comment(s): Pt recently admitted to [facility] on 09/18 with pancreatitis/ETOH abuse. Other hx: Recent head injury with morris now removed. Last Myocardial Infarction Date:: 2011 History of Any Multi-Drug Resistant Organisms: None Reported Past Surgical History: Heart Catheterization With Stent Additional Past Surgical History / Comment(s[place] [facility] [place] Anesthesia/Blood Transfusion Reactions: No Reported Reaction Date of Last Stent Placement:: 2011 Past Psychological History: Anxiety, Depression Additional Psychological History / Comment(s): Pt recently moved from [place] to this area. He does not drive, his significant other drives. There are 2 children in the home, ages 8 and 10yrs. Smoking Status: Current every day smoker Past Alcohol Use History: Daily Additional Past Alcohol Use History / Comment(s): Pt has ETOH abuse. He used to drink 1/5 of gin and beer daily. He now drinks every other day and less than 14 drinks total in a week. He states he uses marijuana-about 2-3 joints a day mostly because he has run out of his medications and marijuana keeps him relaxed. Past Drug Use History: Marijuana Additional Drug Use History / Comment(s): daily use of marijuana - Past Family History Mother Family Medical History: CVA/TIA, Diabetes Mellitus, Hypertension Additional Family Medical History / Comment(s): Mother is still living. Father Family Medical History: CVA/TIA Additional Family Medical History / Comment(s): Father is still living. Medications and Allergies Home Medications Medication Instructions Recorded Confirmed Type No Known Home Medications [No 02/09/17 02/09/17 History Known Home Medications] Allergies Allergy/AdvReac Type Severity Reaction Status Date / Time seafood Allergy Unknown Uncoded 02/09/17 10:40 Physical Exam Vitals: Vital Signs Temp Pulse Pulse Resp BP BP Pulse Ox 02/10/17 06:41 140/95 02/10/17 04:00 16 02/10/17 01:00 98.0 F 59 L 16 142/87 02/10/17 00:00 14 02/09/17 22:00 156/99 02/09/17 21:00 185/120 02/09/17 20:00 14 02/09/17 19:42 98.1 F 64 14 194/127 99 02/09/17 16:00 98.4 F 68 16 165/105 95 02/09/17 15:34 97.8 F 73 16 152/105 98 02/09/17 15:26 97.8 F 73 16 152/105 98 02/09/17 14:27 78 16 165/107 99 02/09/17 13:28 76 16 158/107 98 Intake and Output 02/09/17 02/10/17 02/10/17 22:59 06:59 14:59 Intake Total 527.495 Balance 527.495 Intake: Intake, IV Titration 167.495 Amount Heparin Sodium,Porcine/ 167.495 D5w Pmx 25,000 unit In Dextrose/Water 1 500ml. bag @ 12 UNITS/KG/HR 19. 59 mls/hr IV .Q24H [facility] Rx #:[id number] Oral 360 Other: # Voids 2 Weight 81.1 kg 81.1 kg - Constitutional General appearance: no acute distress - Respiratory Respiratory: bilateral: CTA - Cardiovascular Rhythm: regular Heart sounds: normal: S1, S2 Abnormal Heart Sounds: systolic murmur Results 02/10/17 03:23 02/10/17 03:23 Cardiac Enzymes 02/09/17 02/09/17 02/10/17 Range/Units 18:00 21:57 03:23 AST 58 (17-59) U/L CK-MB (CK-2) 1.7 1.5 (0.0-2.4) ng/mL Troponin I 0.019 0.013 (0.000-0.034) ng/mL Coagulation 02/09/17 02/10/17 Range/Units 18:00 03:23 APTT 27.0 36.6 H (22.0-30.0) sec Lipids 02/10/17 Range/Units 03:23 Triglycerides 137 (<150) mg/dL Cholesterol 199 (<200) mg/dL HDL Cholesterol 91 H (40-60) mg/dL CBC 02/10/17 Range/Units 03:23 WBC 6.5 (3.8-10.6) k/uL RBC 5.25 (4.30-5.90) m/uL Hgb 16.1 (13.0-17.5) gm/dL Hct 50.0 (39.0-53.0) % Plt Count 198 (150-450) k/uL Comprehensive Metabolic Panel 02/10/17 Range/Units 03:23 Sodium 136 L (137-145) mmol/L Potassium 3.9 (3.5-5.1) mmol/L Chloride 103 (98-107) mmol/L Carbon Dioxide 25 (22-30) mmol/L BUN 11 (9-20) mg/dL Creatinine 0.78 (0.66-1.25) mg/dL Glucose 103 H (74-99) mg/dL Calcium 9.3 (8.4-10.2) mg/dL AST 58 (17-59) U/L ALT 51 (21-72) U/L Alkaline Phosphatase 79 (38-126) U/L Total Protein 7.0 (6.3-8.2) g/dL Albumin 4.1 (3.5-5.0) g/dL Current Medications Generic Name Dose Route Start Last Admin Trade Name Freq PRN Reason Stop Dose Admin Acetaminophen 650 mg 02/09/17 16:34 Tylenol Tab PO Q4HR PRN Fever and/ or Mild Pain Hydrocodone Bitart/Acetaminophen 1 each 02/09/17 21:20 Sunbright 5-325 PO Q6HR PRN Pain Amlodipine Besylate 5 mg 02/09/17 21:30 02/09/17 22:48 Norvasc PO 5 mg BID [facility] Administration Aspirin 325 mg 02/10/17 09:00 Aspirin PO DAILY [facility] Clonidine 0.1 mg 02/09/17 21:20 Catapres PO Q4HR PRN Hypertension Clonidine 0.1 mg 02/09/17 22:00 02/10/17 04:51 Catapres PO Not Given TID [facility] Folic Acid 1 mg 02/10/17 12:00 Folic Acid PO DAILY@1200 [facility] Heparin Sodium (Porcine) 0 unit 02/09/17 12:41 02/09/17 21:27 Heparin IV 4,000 unit Q6HR PRN Administration Low PTT Protocol Hydralazine HCl 10 mg 02/09/17 21:20 Apresoline IVP Q4HR PRN Blood Pressure - High Hydromorphone HCl 0.5 mg 02/09/17 21:20 Dilaudid IVP Q4HR PRN Severe Pain Heparin Sodium/Dextrose 25,000 500 mls @ 19.59 mls/hr 02/09/17 12:45 21:28 unit/ IV Solution IV 14.94 units/kg/hr .Q24H [facility] 24.4 mls/hr Protocol Titration 12 UNITS/KG/HR Lisinopril 20 mg 02/09/17 17:00 02/09/17 19:04 Zestril PO 20 mg DAILY [facility] Administration Lorazepam 1 mg 02/09/17 21:23 Ativan IV Q2HR PRN CIWA 8 or 9 Lorazepam 1 mg 02/09/17 21:23 Ativan IV Q1HR PRN CIWA 10 to 15 Lorazepam 2 mg 02/09/17 21:23 02/10/17 02:44 Ativan IV 2 mg Q1HR PRN Administration CIWA 16 or higher Melatonin 5 mg 02/09/17 16:39 Melatonin PO HS PRN Insomnia Metoprolol Tartrate 25 mg 02/09/17 21:00 02/09/17 21:50 Lopressor PO 25 mg BID [facility] Administration Miscellaneous Information 1 each 02/09/17 11:27 Rx Info: Iv Contrast Was Given MISCELLANE 02/11/17 11:27 DAILY PRN Per Protocol Multivitamins 1 each 02/10/17 12:00 Theragran PO DAILY@1200 [facility] Nicotine 1 patch 02/09/17 21:30 02/09/17 22:48 Habitrol 14mg/24hr Patch TRANSDERM 1 patch DAILY [facility] Administration Nitroglycerin 1 inch 02/09/17 18:00 02/10/17 04:52 Nitro-Bid Oint TOPICAL Not Given Q6HR [facility] Nitroglycerin 0.4 mg 02/09/17 12:41 Nitrostat SUBLINGUAL Q5M PRN Chest Pain Pantoprazole Sodium 40 mg 02/10/17 07:30 Protonix PO AC-BRKFST [facility] Sodium Chloride 10 ml 02/09/17 21:00 02/09/17 22:52 Saline Flush IV 10 ml BID [facility] Administration Temazepam 15 mg 02/09/17 21:20 Restoril PO HS PRN Insomnia Thiamine HCl 100 mg 02/10/17 12:00 Vitamin B-1 PO DAILY@1200 [facility] Thiamine HCl 100 mg 02/09/17 21:30 02/09/17 22:53 Vitamin B-1 PO 100 mg BID@1200,1700 [facility] Administration Intake and Output 02/09/17 02/10/17 02/10/17 22:59 06:59 14:59 Intake Total 527.495 Balance 527.495 Intake: Intake, IV Titration 167.495 Amount Heparin Sodium,Porcine/ 167.495 D5w Pmx 25,000 unit In Dextrose/Water 1 500ml. bag @ 12 UNITS/KG/HR 19. 59 mls/hr IV .Q24H [facility] Rx #:[id number] Oral 360 Other: # Voids 2 Weight 81.1 kg 81.1 kg 02/10/17 03:23 02/10/17 03:23 Assessment and Plan Plan: Assessment #1 ongoing chest discomfort #2 abnormal EKG concerning for ischemia #3 known history of CAD with prior stenting None I recommended proceeding with heart catheterization Obtain an echocardiogram was Doppler Follow-up with the patient
[2017-02-10] MEDS ORDERED: SODIUM CHLORIDE 0.9% 1,000 ML in EMPTY BAG 1 BAG IV ONE (08:52)
[2017-02-10] MEDS ORDERED: ALPRAZolam 0.25 MG TAB PO PRN (08:52)
[2017-02-10] MEDS ORDERED: ATORVASTATIN 80 MG TAB PO STA (08:52)
[2017-02-10] MEDS ORDERED: NITROGLYCERIN SL TABS 0.4 MG TAB SUBLINGUAL PRN (08:52)
[2017-02-10] MEDS ORDERED: ALPRAZolam 0.5 MG TAB PO PRN (08:52)
[2017-02-10] MEDS: amLODIPine 5 MG TAB PO SCH ×2 (09:37→21:36)
[2017-02-10] MEDS: ASPIRIN 325 MG TAB PO SCH (09:37)
[2017-02-10] MEDS: METOPROLOL TARTRATE 25 MG TAB PO SCH ×2 (09:37→21:36)
[2017-02-10] MEDS: LISINOPRIL 20 MG TAB PO SCH (09:37)
[2017-02-10] MEDS: PANTOPRAZOLE 40 MG TABLET PO SCH (09:37)
[2017-02-10] MEDS ORDERED: THIAMINE 100 MG TAB PO SCH (12:00)
[2017-02-10] MEDS ORDERED: FOLIC ACID 1 MG TAB PO SCH (12:00)
[2017-02-10] MEDS ORDERED: MULTIVITAMINS, THERA 1 EACH TAB PO SCH (12:00)
[2017-02-10] MEDS ORDERED: MIDAZOLAM 2 MG/2 ML VIAL ONE (13:06)
[2017-02-10] MEDS ORDERED: LIDOCAINE 2% INJ 20 MG/ML (20 ML MDV) ONE (13:06)
[2017-02-10] MEDS ORDERED: VERAPAMIL 2.5 MG/ML 2 ML AMP ONE (13:07)
[2017-02-10] MEDS ORDERED: HEPARIN SODIUM 1,000 UNIT/ML VIAL ONE (13:10)
[2017-02-10] MEDS ORDERED: LIDOCAINE 2% INJ 20 MG/ML SQ ONE (13:48)
[2017-02-10] MEDS ORDERED: IV FLUID CONTINUATION 1,000 ML IV ONE (13:48)
[2017-02-10] MEDS ORDERED: MIDAZOLAM 2 MG/2 ML VIAL IV ONE (13:48)
[2017-02-10] MEDS ORDERED: IOHEXOL 350 MG/ML 125ML BOTTLE INJ ONE (13:59)
[2017-02-10] MEDS ORDERED: RX INFO: IV CONTRAST WAS GIVEN 1 EACH MISC MISCELLANE PRN (14:10)
[2017-02-10] MEDS ORDERED: SODIUM CHLORIDE 0.9% 1,000 ML IV SCH (14:15)
[2017-02-10 14:23] VITALS: RESP 16
[2017-02-10] MEDS: THIAMINE 100 MG TAB PO SCH ×2 (20:48→21:36)
--- NOTE | 2017-02-10 21:17 | PN ---
DATE OF SERVICE: 02/10/2017 This 36-year-old gentleman who was admitted with chest pain is being closely monitored. Cardiology performed cardiac catheterization. Patient has an extensive cardiac history, previously, including stents. No chest pain. No palpitation. No fever. A chest CT was done which showed limited assessment; no pulmonary embolism and COPD. On exam, alert and oriented x3. Pulse 62, blood pressure 158/101, respiration 16, temperature 97.9, pulse ox 98% on room air. HEENT: Conjunctivae normal. NECK: No jugular venous distention. CARDIOVASCULAR SYSTEM: S1, S2 muffled. RESPIRATORY SYSTEM: Breath sounds diminished at the bases. A few rhonchi. No crackles. ABDOMEN: Soft, non-tender. LEGS: No edema. No swelling. NERVOUS SYSTEM: No focal deficit. LABS: CBC within normal limits. Sodium 136. HDL is 91. ASSESSMENT: 1. Chest pain for evaluation. Rule out unstable angina or coronary artery disease. 2. Hypertensive urgency and accelerated hypertension, present on admission. 3. Increased random blood sugar. 4. Increased AST; possible alcoholic hepatitis. 5. History of ethanol. 6. Increased creatine kinase with troponins up to 0.021. 7. ST-T changes on EKG. 8. History of coronary artery disease and stent. 9. Hypertension, essential. 10. Hyperlipidemia. 11. History of myocardial infarction. 12. History of ethanol and pancreatitis recently. 13. History of head injury. 14. History of anxiety, depression not otherwise specified. 15. History of tetrahydrocannabinol. 16. FULL CODE. RECOMMENDATIONS AND DISCUSSION: I recommend to continue with the current medications, continue with the monitoring, symptomatic treatment. Cardiac catheterization per Cardiology. Guarded prognosis because of multiple complex medical issues. Further recommendations to follow.
[2017-02-10] MEDS: NICOTINE 14MG/24HR PATCH TRANSDERM SCH (21:35)
[2017-02-10] MEDS: HYDROcodone/APAP 5-325MG 1 EACH TAB PO PRN (21:39)
[2017-02-11] MEDS: NITROGLYCERIN OINT 1 INCH/GM PACKET TOPICAL SCH ×3 (00:05→06:15)
[2017-02-11 00:54] LABS: Appearance,Urine Clear (Clear); Bilirubin,Urine Negative (Negative); Glucose,Urine (UA) Negative (Negative); Ketones,Urine Negative (Negative); Leukocyte Esterase,Urine Negative (Negative); Nitrite,Urine Negative (Negative); PH, Urine 6.5 (5.0-8.0); Protein,Urine Trace (Negative); UA Billing (MACRO vs. MICRO) CHEM
[2017-02-11] MEDS: LORazepam 2 MG/ML SYRINGE IV PRN ×2 (01:13→04:35)
[2017-02-11] MEDS: HYDROcodone/APAP 5-325MG 1 EACH TAB PO PRN (04:29)
[2017-02-11] MEDS: PANTOPRAZOLE 40 MG TABLET PO SCH (06:39)
[2017-02-11 06:45] VITALS: BP 138/82; PULSE 67; TEMP 98.8
[2017-02-11 07:10] LABS: Basophils # (A) 0.1 k/uL (0-0.2); Basophils % (A) 1 %; CH 32.1; CHCM 34.3; Eosinophils # (A) 0.2 k/uL (0-0.7); Eosinophils % (A) 2 %; HCT 49.4 % (39.0-53.0); HDW 2.44; HGB 16.3 gm/dL (13.0-17.5); Luc # (Auto) 0.16; Luc % (Auto) 2; Lymphocytes # (A) 1.8 k/uL (1.0-4.8); Lymphocytes % (A) 18 %; MCV 94.1 fL (80.0-100.0); Mean Platelet Volume 7.2; Monocytes # (A) 0.5 k/uL (0-1.0); Monocytes % (A) 5 %; Neutrophils # (A) 7.4 k/uL (1.3-7.7); Neutrophils % (A) 73 %; RBC 5.25 m/uL (4.30-5.90); RDW 14.7 % (11.5-15.5); WBC 10.2 k/uL (3.8-10.6); WBC (Perox) 9.92
--- NOTE | 2017-02-11 07:16 | CC ---
DATE OF SERVICE: 02/10/2017 PERFORMING PHYSICIAN: Tima Baltazar MD, Water/Wastewater Project Engineer. PROCEDURE PERFORMED: 1. Selective right and left coronary angiogram. 2. Left heart catheterization. INDICATION: This is a pleasant 36-year-old gentleman who sees a tax credit leasing consultant out of town in the [place] area, presented to the hospital with chest discomfort and dynamic EKG changes consistent with ischemia. He underwent stenting of the LAD in the past at [place]. In view of that, I recommend proceeding with a heart catheterization. APPROACH: Right common femoral artery. COMPLICATIONS: None. LEVEL OF SEDATION: Moderate with a sedation length of 18 minutes. PROCEDURE DESCRIPTION: After obtaining an informed consent, the patient was brought to the Cardiac Client Professional. The right common femoral artery was cannulated using micropuncture technique and the micropuncture wire passed easily. Then I placed a 6 Japanese sheath in the right common femoral artery. Subsequently, I did selective right and left coronary angiogram, using JR4 and JL4 catheters. Then I did left heart catheterization using a 6 Japanese pigtail catheter. The procedure was completed without any complication. SELECTIVE CORONARY ANGIOGRAM: 1. The right coronary artery is a large-caliber vessel and it is a dominant vessel. It is angiographically normal. It bifurcates distally into PDA and PLV branches; both are angiographically normal. 2. The left main is angiographically normal. It bifurcates into the left circumflex and left anterior descending artery. 3. Left circumflex is a large-caliber vessel and it is a nondominant vessel. The proximal circ is angiographically normal and gives rise into a large first OM, which appeared to be angiographically normally. The mid-left circumflex is normal, the left circumflex distally is normal and gives rise into the second OM, which seems to be angiographically normal. 4. Left anterior descending artery: The proximal LAD is stented and the stent is patent. The LAD proximally gives rise into a first diag branch, which seems to be angiographically normally. The mid LAD is normal and gives rise into second diag branch, which seems to be angiographically normal. The LAD distally is angiographically normal. HEMODYNAMICS: The left ventricular end-diastolic pressure was 8 mmHg and no gradient was identified across the aortic valve. CONCLUSION: 1. Patent stent in the proximal left anterior descending artery. 2. No other residual coronary artery disease identified. POSTPROCEDURE MANAGEMENT: 1. Maximize medical treatment. 2. Follow up with the patient.
[2017-02-11 07:24] LABS: ALT 51 U/L (21-72); AST 54 U/L (17-59); Alkaline Phosphatase 75 U/L (38-126); Anion Gap 8 mmol/L; Blood Urea Nitrogen 11 mg/dL (9-20); Calcium 9.5 mg/dL (8.4-10.2); Carbon Dioxide 25 mmol/L (22-30); Chloride 101 mmol/L (98-107); Glucose 114 mg/dL (74-99); Non-African American GFR(MDRD) >60 (>60 ml/min/1.73 sqM); Potassium 3.9 mmol/L (3.5-5.1); Sodium 134 mmol/L (137-145); Total Protein 7.3 g/dL (6.3-8.2)
--- NOTE | 2017-02-11 07:56 | P.PN ---
Subjective Principal diagnosis: Chest discomfort This is a pleasant 36-year-old -[place] gentleman with a past medical history significant for CAD and prior stenting of the LAD was performed in length, hypertension, dyslipidemia, and significant history of smoking, presented to the emergency room complaining of chest discomfort. He describes ongoing chest discomfort across the chest as a pressure kind of discomfort without any radiation. The cardiac enzymes were checked and came in to be unremarkable. The EKG showed sinus rhythm with biphasic T waves in the anterior leads. The patient underwent a heart catheterization which showed patent stent in the proximal LAD without any residual severe CAD. On follow-up with him today, he seems to be doing good and asymptomatic. The right groin is soft nontender and without any bruises. From the cardiovascular standpoint of view, he can be discharged home Objective - Vital Signs Vital signs: Vital Signs Temp 98.8 F 02/11/17 06:39 Pulse 67 02/11/17 06:39 Resp 16 02/11/17 06:39 BP 138/82 02/11/17 06:39 Pulse Ox 97 02/11/17 06:39 Intake & Output 02/10/17 02/11/17 02/11/17 18:59 06:59 18:59 Intake Total 340 240 Output Total 950 Balance 340 -710 Intake: IV 100 Oral 240 240 Output: Urine 950 Other: Voiding Method Urinal Urinal # Voids 350 # Bowel Movements 1 - Constitutional General appearance: Present: no acute distress - Respiratory Respiratory: bilateral: CTA - Cardiovascular Rhythm: regular Heart sounds: normal: S1, S2 - Labs CBC & Chem 7: 02/11/17 06:51 02/11/17 06:51 Labs: Abnormal Lab Results - Last 24 Hours (Table) 02/10/17 02/10/17 02/11/17 Range/Units 22:29 22:35 06:51 Sodium 134 L (137-145) mmol/L Glucose 114 H (74-99) mg/dL Urine Protein Trace H (Negative) U Benzodiazepines Scrn Detected H (NotDetected) U Marijuana (THC) Screen Detected H (NotDetected) Assessment and Plan Plan: Assessment #1 ongoing chest discomfort #2 abnormal EKG concerning for ischemia #3 known history of CAD with prior stenting None The heart catheterization showed patent stent in the proximal LAD The patient can be discharged home on aspirin, a total gregory, and statin.
[2017-02-11] MEDS: NICOTINE 14MG/24HR PATCH TRANSDERM SCH (08:36)
[2017-02-11] MEDS: ASPIRIN 325 MG TAB PO SCH (08:36)
[2017-02-11] MEDS: METOPROLOL TARTRATE 25 MG TAB PO SCH (08:37)
[2017-02-11] MEDS: amLODIPine 5 MG TAB PO SCH (08:37)
[2017-02-11] MEDS: cloNIDine HCL 0.1 MG TAB PO SCH (08:37)
[2017-02-11] MEDS: LISINOPRIL 20 MG TAB PO SCH (08:37)
--- NOTE | 2017-02-11 10:55 | ECHOF ---
Referral Reason:chest pain MEASUREMENTS -------- HEIGHT: 180.3 cm WEIGHT: 80.7 kg BP: 172/111 RVIDd: 2.9 cm (< 3.3) IVSd: 1.0 cm (0.6 - 1.1) LVIDd: 6.0 cm (3.9 - 5.3) LVPWd: 1.1 cm (0.6 - 1.1) IVSs: 1.6 cm LVIDs: 4.6 cm LVPWs: 1.7 cm LA Diam: 3.6 cm (2.7 - 3.8) LAESV Index (A-L): 24.73 ml/m Ao Diam: 4.5 cm (2.0 - 3.7) AV Cusp: 2.3 cm (1.5 - 2.6) MV EXCURSION: 24.078 mm (> 18.000) MV EF SLOPE: 113 mm/s (70 - 150) EPSS: 1.2 cm MV E Lopez: 0.47 m/s MV DecT: 248 ms MV A Lopez: 0.65 m/s MV E/A Ratio: 0.72 FINDINGS -------- Sinus rhythm. This was a technically good study. The left ventricle is mildly dilated. There is borderline concentric left ventricular hypertrophy. Overall left ventricular systolic function is moderately impaired with, an EF between 35 - 40 %. The right ventricle is normal in size. Normal LA size by volume 22+/-6 ml/m2. The right atrium is normal in size. The aortic valve is trileaflet and appears structurally normal. Mild mitral annular calcification present. The tricuspid valve appears structurally normal. The pulmonic valve is normal. The aortic root is dilated measuring 4.5cm. Normal inferior vena cava with normal inspiratory collapse consistent with estimated right atrial pressure of 5 mmHg. The pericardium is normal. CONCLUSIONS -------- 1. Sinus rhythm. 2. The pulmonic valve is normal. 3. The aortic root is dilated measuring 4.5cm. 4. Normal inferior vena cava with normal inspiratory collapse consistent with estimated right atrial pressure of 5 mmHg. 5. The pericardium is normal. 6. This was a technically good study. 7. The left ventricle is mildly dilated. 8. There is borderline concentric left ventricular hypertrophy. 9. The right ventricle is normal in size. 10. Normal LA size by volume 22+/-6 ml/m2. 11. The aortic valve is trileaflet and appears structurally normal. 12. Mild mitral annular calcification present. 13. The tricuspid valve appears structurally normal. CHILD WELFARE COUNSELOR: Janette Garcia RDCS
[2017-02-11 11:12] LABS: Amylase 63 U/L (30-110)
[2017-02-11] MEDS ORDERED: ATORVASTATIN 40 MG TAB PO SCH (21:00)
--- NOTE | 2017-02-15 14:48 | DS ---
DATE OF ADMISSION: 02/09/2017 DATE OF DISCHARGE: 02/11/2017 DATE OF SERVICE: 02/11/2017 FINAL DIAGNOSES: 1. Chest pain, possibly musculoskeletal pain. 2. Negative cardiac catheterization as well as a CT angiogram. 3. Hypertensive urgency and accelerated hypertension, present on admission. 4. Increased random blood sugar. 5. Increased AST, possible alcoholic hepatitis. 6. History of Ethyl alcohol. 7. Increased creatinine with troponin up to 0.021. 8. ST-T changes on the EKG. 9. History of coronary artery disease, stent. 10. Hypertension, essential. 11. Hyperlipidemia. 12. History of myocardial infarction. 13. History of Ethyl alcohol and pancreatitis recently. 14. History of head injury. 15. Anxiety, depression, not otherwise specified. 16. History of THC. 17. FULL CODE. DISCHARGE DISPOSITION: The patient will be discharged in a stable condition with guarded prognosis. Discharged cleared by Cardiology. HISTORY OF PRESENT ILLNESS: This is a 36-year-old gentleman with a past medical history of multiple medical problems was admitted with chest pain, myocardial infarction ruled out. Cardiology performed a cardiac catheterization which showed normal coronary arteries. The patient previously had a cardiac history also. Patent stent in the proximal ( ) was noted and patient was treated medically, improved significantly. On exam, vitals are stable. CARDIOVASCULAR SYSTEM: S1, S2, muffled. ABDOMEN: Soft. NERVOUS SYSTEM: No focal deficits. DISCHARGE ADVICE: 1. Diet is cardiac. 2. Activity limited until followup. 3. Follow up with Dr. Olson in 2 to 3 days. 4. Follow up with Dr. Baltazar as recommended. Medications will be as follows: 1. Ecotrin 81 mg p.o. daily. 2. Lipitor 40 mg q.h.s. 3. Folic acid 1 mg p.o. daily. 4. Zestril 20 mg daily. 5. Lopressor 25 mg p.o. b.i.d. 6. Multivitamin 1 p.o. daily. 7. Habitrol 14 daily. 8. Thiamine 100 mg p.o. b.i.d. 9. Norvasc 5 mg p.o. b.i.d. 10. Captopril 0.1 p.o. t.i.d. Once again, the patient will be discharged in a stable condition with guarded prognosis.
== END 2017-02-11 12:11 | disposition home or self-care (01) ==
LOC: EC 10:23 → 3OBS 12:42
PROVIDERS: ADMIT Hospitalist; ATTEND Hospitalist
DX: R07.89 Other chest pain (principal); I16.0 Hypertensive urgency; I10 Essential (primary) hypertension; R73.9 Hyperglycemia, unspecified; F10.10 Alcohol abuse, uncomplicated; R74.0 Nonspecific elevation of levels of transaminase and lactic acid dehydrogenase [LDH]; R74.8 Abnormal levels of other serum enzymes; R94.31 Abnormal electrocardiogram [ECG] [EKG]; I25.10 Atherosclerotic heart disease of native coronary artery without angina pectoris; Z95.5 Presence of coronary angioplasty implant and graft; E78.5 Hyperlipidemia, unspecified; I25.2 Old myocardial infarction; F41.9 Anxiety disorder, unspecified; F32.9 Major depressive disorder, single episode, unspecified; Z91.013 Allergy to seafood; F12.90 Cannabis use, unspecified, uncomplicated; F17.200 Nicotine dependence, unspecified, uncomplicated; Z83.3 Family history of diabetes mellitus; Z87.828 Personal history of other (healed) physical injury and trauma; R06.02 Shortness of breath
CPT/HCPCS: 96361; 96366 ×3; 96376; 96365; 96375; 99291; 36415; 93005; 93306; 93458; 85379; 80061; 80053 ×3; 82150 ×2; 82550; 82553; 83690 ×2; 83735 ×2; 84484; 85025 ×3; 85610; 85730 ×2; 81003; 80306; 80320; 71020; 74000; 71275; G0378 ×3; C1894; C1769 ×2; C1760; S4990 ×3; J2001; J2250; J2060 ×3; J0360; J1644 ×2; J3411; Q9967 ×2

== ENCOUNTER 2017-07-25 21:13 | Inpatient (IN) | payer OTHER ==
[2017-07-25] MEDS ORDERED: SODIUM CHLORIDE 0.9% 500 ML IV STA (21:46)
[2017-07-25] MEDS ORDERED: SODIUM CHLORIDE 0.9% 1,000 ML IV STA (21:46)
[2017-07-25] MEDS ORDERED: MORPHINE SULFATE 2 MG/ML SYRINGE IVP ONE (21:59)
[2017-07-25] MEDS ORDERED: ONDANSETRON 4 MG/2 ML VIAL IVP STA (21:59)
--- NOTE | 2017-07-25 22:01 | ED ---
Abdominal Pain HPI - General Source: patient, RN notes reviewed Mode of arrival: ambulatory Limitations: no limitations <Reji Rock - Last Filed: 07/26/17 00:17> <Parish Georges - Last Filed: 07/26/17 00:23> - General Chief Complaint: Abdominal Pain Stated Complaint: Abd Pain Time Seen by Provider: 07/25/17 21:46 - History of Present Illness Initial Comments: this a 37-year-old male presents emergency Department chief complaint abdominal pain. Patient states that pain started primary today has mid abdomen. Patient does admit to nausea and vomiting denies any diarrhea but states he slightly constipated. Patient states that he recently started drinking alcohol again and he has a history of pancreatitis. Patient states pain feels very similar. Denies any chest pain or shortness of breath. Denies any dysuria hematuria. ( Reji Rock) - Related Data Previous Rx's Medication Instructions Recorded Aspirin EC [Ecotrin Low Dose] 81 mg PO DAILY #30 tablet. 02/11/17 Allergies Allergy/AdvReac Type Severity Reaction Status Date / Time Mushroom AdvReac Nausea & Verified 07/25/17 22:02 Vomiting shellfish derived [Shellfish] AdvReac Nausea & Verified 07/25/17 22:02 Vomiting Review of Systems ROS Other: All systems not noted in ROS Statement are negative. <Reji Rock - Last Filed: 07/26/17 00:17> ROS Other: All systems not noted in ROS Statement are negative. <Parish Georges - Last Filed: 07/26/17 00:23> ROS Statement: Those systems with pertinent positive or pertinent negative responses have been documented in the HPI. Past Medical History Past Medical History: Coronary Artery Disease (CAD), Hyperlipidemia, Hypertension, Myocardial Infarction (CA) Additional Past Medical History / Comment(s): Pt recently admitted to [facility] on 09/18 with pancreatitis/ETOH abuse. Other hx: Recent head injury with morris now removed. Last Myocardial Infarction Date:: 2011 History of Any Multi-Drug Resistant Organisms: None Reported Past Surgical History: Heart Catheterization With Stent Additional Past Surgical History / Comment(s): PCI with stent at [facility] [place]. Past Anesthesia/Blood Transfusion Reactions: No Reported Reaction Date of Last Stent Placement:: 2011 Past Psychological History: Anxiety, Depression Smoking Status: Current every day smoker Past Alcohol Use History: Daily Past Drug Use History: Marijuana - Past Family History Mother Family Medical History: CVA/TIA, Diabetes Mellitus, Hypertension Additional Family Medical History / Comment(s): Mother is still living. Father Family Medical History: CVA/TIA Additional Family Medical History / Comment(s): Father is still living. <Reji Rock - Last Filed: 07/26/17 00:17> General Exam Limitations: no limitations <Reji Rock - Last Filed: 07/26/17 00:17> Course <Reji Rock - Last Filed: 07/26/17 00:17> <Parish Georges - Last Filed: 07/26/17 00:23> Vital Signs 07/25/17 21:15 Temperature 97.9 F Pulse Rate 68 Respiratory 20 Rate Blood Pressure 200/121 O2 Sat by Pulse 100 Oximetry - Reevaluation(s) Reevaluation #1: 07/26/17 00:23 I did proceed a [id number] evaluation as patient did discuss findings have and his significant other. Patient will be admitted for inpatient treatment of acute pancreatitis. I did discuss case with Dr. Lara. (Parish Georges) Medical Decision Making - Lab Data Result diagrams: 07/25/17 23:10 07/25/17 22:28 <Reji Rock - Last Filed: 07/26/17 00:17> - Lab Data Result diagrams: 07/25/17 23:10 07/25/17 22:28 <Parish Georges - Last Filed: 07/26/17 00:23> - Lab Data Lab Results 07/25/17 07/25/17 07/25/17 Range/Units 22:28 22:28 23:10 WBC 12.2 H (3.8-10.6) k/uL RBC 4.78 (4.30-5.90) m/uL Hgb 15.3 (13.0-17.5) gm/dL Hct 44.8 (39.0-53.0) % MCV 93.7 (80.0-100.0) fL MCH 31.9 (25.0-35.0) pg MCHC 34.1 (31.0-37.0) g/dL RDW 15.3 (11.5-15.5) % Plt Count 185 (150-450) k/uL Neutrophils % 86 % Lymphocytes % 7 % Monocytes % 5 % Eosinophils % 2 % Basophils % 0 % Neutrophils # 10.5 H (1.3-7.7) k/uL Lymphocytes # 0.8 L (1.0-4.8) k/uL Monocytes # 0.6 (0-1.0) k/uL Eosinophils # 0.2 (0-0.7) k/uL Basophils # 0.0 (0-0.2) k/uL Sodium 138 (137-145) mmol/L Potassium 4.4 (3.5-5.1) mmol/L Chloride 100 (98-107) mmol/L Carbon Dioxide 21 L (22-30) mmol/L Anion Gap 17 mmol/L BUN 18 (9-20) mg/dL Creatinine 0.90 (0.66-1.25) mg/dL Est GFR (MDRD) Af Amer >60 (>60 ml/min/1.73 sqM) Est GFR (MDRD) Non-Af >60 (>60 ml/min/1.73 sqM) Glucose 139 H (74-99) mg/dL Calcium 10.4 H (8.4-10.2) mg/dL Total Bilirubin 1.8 H (0.2-1.3) mg/dL AST 69 H (17-59) U/L ALT 52 (21-72) U/L Alkaline Phosphatase 140 H (38-126) U/L Total Protein 8.4 H (6.3-8.2) g/dL Albumin 4.9 (3.5-5.0) g/dL Amylase 447 H* (30-110) U/L Lipase 3076 H (23-300) U/L Urine Color Yellow Urine Appearance Clear (Clear) Urine pH 6.5 (5.0-8.0) Ur Specific [place] 1.041 H (1.001-1.035) Urine Protein 2+ H (Negative) Urine Glucose (UA) Trace H (Negative) Urine Ketones 4+ H (Negative) Urine Blood Trace H (Negative) Urine Nitrite Negative (Negative) Urine Bilirubin 1+ H (Negative) Urine Urobilinogen 4.0 (<2.0) mg/dL Ur Leukocyte Esterase Negative (Negative) Urine RBC 1 (0-5) /hpf Urine WBC 1 (0-5) /hpf Urine Mucus Moderate H (None) /hpf Serum Alcohol <10 mg/dL Disposition <Reji Rock - Last Filed: 07/26/17 00:17> <Parish Georges - Last Filed: 07/26/17 00:23> Clinical Impression: Alcoholic pancreatitis, Abdominal pain Disposition: ADMITTED IP TO THIS HOSP Condition: Fair Referrals: None,Stated [Primary Care Provider] - 1-2 days
[2017-07-25] MEDS ORDERED: HYDROmorphone 0.5 MG/0.5 ML SYRINGE IVP STA (22:14)
[2017-07-25 22:56] LABS: Appearance,Urine Clear (Clear); Bilirubin,Urine 1+ (Negative); Glucose,Urine (UA) Trace (Negative); Ketones,Urine 4+ (Negative); Leukocyte Esterase,Urine Negative (Negative); Mucus,Urine Moderate /hpf; Nitrite,Urine Negative (Negative); PH, Urine 6.5 (5.0-8.0); Particle Count 6059; Protein,Urine 2+ (Negative); RBC,Urine 1 /hpf (0-5); Specific Gravity,Urine 1.041 (1.001-1.035); UA Billing (MACRO vs. MICRO) MICRO; WBC,Urine 1 /hpf (0-5)
[2017-07-25 22:57] LABS: ALT 52 U/L (21-72); AST 69 U/L (17-59); Alcohol <10 mg/dL; Alkaline Phosphatase 140 U/L (38-126); Anion Gap 17 mmol/L; Blood Urea Nitrogen 18 mg/dL (9-20); Calcium 10.4 mg/dL (8.4-10.2); Carbon Dioxide 21 mmol/L (22-30); Chloride 100 mmol/L (98-107); Glucose 139 mg/dL (74-99); Non-African American GFR(MDRD) >60 (>60 ml/min/1.73 sqM); Potassium 4.4 mmol/L (3.5-5.1); Sodium 138 mmol/L (137-145); Total Bilirubin 1.8 mg/dL (0.2-1.3); Total Protein 8.4 g/dL (6.3-8.2)
[2017-07-25 23:05] LABS: Amylase 447 U/L (30-110)
[2017-07-25] MEDS ORDERED: SODIUM CHLORIDE 0.9% 1,000 ML IV ONE (23:23)
[2017-07-25 23:26] LABS: Basophils % (A) 0 %; CH 33.3; CHCM 35.8; Eosinophils # (A) 0.2 k/uL (0-0.7); Eosinophils % (A) 2 %; HCT 44.8 % (39.0-53.0); HDW 2.63; HGB 15.3 gm/dL (13.0-17.5); Luc # (Auto) 0.08; Luc % (Auto) 1; Lymphocytes # (A) 0.8 k/uL (1.0-4.8); Lymphocytes % (A) 7 %; MCH 31.9 pg (25.0-35.0); MCHC 34.1 g/dL (31.0-37.0); MCV 93.7 fL (80.0-100.0); Mean Platelet Volume 8.6; Monocytes # (A) 0.6 k/uL (0-1.0); Monocytes % (A) 5 %; Neutrophils # (A) 10.5 k/uL (1.3-7.7); Neutrophils % (A) 86 %; RBC 4.78 m/uL (4.30-5.90); RDW 15.3 % (11.5-15.5); WBC 12.2 k/uL (3.8-10.6); WBC (Perox) 13.22
[2017-07-26] MEDS ORDERED: NALOXONE 0.4 MG/ML 1 ML VIAL IV PRN (00:17)
[2017-07-26] MEDS ORDERED: KETOROLAC 30 MG/ML 1 ML VIAL IVP PRN (00:17)
[2017-07-26] MEDS ORDERED: ONDANSETRON 4 MG/2 ML VIAL IVP PRN (00:17)
[2017-07-26] MEDS ORDERED: HYDROmorphone 0.5 MG/0.5 ML SYRINGE IVP STA (00:19)
[2017-07-26] MEDS: SODIUM CHLORIDE 0.9% 1,000 ML IV SCH ×4 (01:01→22:38)
[2017-07-26] MEDS: HYDROmorphone 0.5 MG/0.5 ML SYRINGE IVP PRN ×9 (01:05→21:35)
[2017-07-26] MEDS ORDERED: LORazepam 2 MG/ML INJ IV STA (01:46)
[2017-07-26] MEDS ORDERED: LORazepam 2 MG/ML INJ IV PRN (01:46)
[2017-07-26] MEDS ORDERED: LISINOPRIL 10 MG TAB PO STA ×2 (02:01→10:18)
[2017-07-26] MEDS ORDERED: cloNIDine HCL 0.1 MG TAB PO STA ×2 (02:01→04:58)
[2017-07-26 02:59] VITALS: BMI 24.8
[2017-07-26] MEDS: ENALAPRILAT 1.25 MG/ML 1 ML VIAL IVP PRN ×2 (04:04→09:00)
[2017-07-26] MEDS: LORazepam 2 MG/ML INJ IV PRN ×6 (04:45→20:48)
[2017-07-26] MEDS: LABETALOL SYRINGE 5 MG/ML IVP SCH ×3 (04:55→10:04)
[2017-07-26] MEDS ORDERED: amLODIPine 5 MG TAB PO STA (04:57)
[2017-07-26] MEDS ORDERED: amLODIPine 5 MG TAB PO SCH (09:00)
[2017-07-26] MEDS ORDERED: amLODIPine 10 MG TAB PO SCH (09:00)
[2017-07-26] MEDS ORDERED: cloNIDine HCL 0.1 MG TAB PO SCH ×2 (09:00)
[2017-07-26] MEDS: ONDANSETRON 4 MG/2 ML VIAL IVP PRN ×2 (09:23→16:22)
[2017-07-26] MEDS ORDERED: LABETALOL 5 MG/ML VIAL MDV IVP PRN (10:14)
[2017-07-26] MEDS ORDERED: cloNIDine 0.3 MG/24HR PATCH 1 PATCH PATCH TRANSDERM SCH (10:30)
--- NOTE | 2017-07-26 11:54 | P.CRDCN ---
History of Present Illness Consult date: 07/26/17 Requesting physician: Anil Lara Consult reason: hypertension Chief complaint: Abdominal pain History of present illness: This is a 37-year-old -[place]ian gentleman with past medical history significant for coronary artery disease and prior stenting of the LAD, hypertension, hyperlipidemia, nicotine dependence, EtOH use. Most recent cardiac catheterization was performed in January of this year which revealed patent LAD stent. Patient presents to the hospital with symptoms of abdominal pain, he also states that he was having episodes of vomiting at home. Patient denies having any chest discomfort. Patient has a recently started drinking alcohol again as well. He has had some issues with significant hypertension in the past as well as noncompliance with taking medications. Cell count on presentation here 12.2, hemoglobin 15.3, platelet count 185. Sodium 138, potassium 4.4, BUN 18, creatinine 0.9. Blood glucose on admission 139, calcium 10.4, total bilirubin 1.8. AST 69, ALT 52, alk phos 140, amylase 447, lipase 3076. Serum alcohol level less than 10. Blood pressure on arrival to the emergency room 200/121, heart rate in the 60s, 100% on room air. Blood pressure persisted to be high at 190/118 and for this reason patient was transferred to the telemetry unit and cardiology consultation was requested. No chest x-ray performed. No EKG performed. At the time of my examination this morning, patient has significant complaints of abdominal discomfort. Current blood pressure 154/80 with a heart rate in the 70s, 97% on room air. Past Medical History Past Medical History: Coronary Artery Disease (CAD), Hyperlipidemia, Hypertension, Myocardial Infarction ([place]) Additional Past Medical History / Comment(s): Pt recently admitted to [facility] on 09/18 with pancreatitis/ETOH abuse. Other hx: Recent head injury with morris now removed. Last Myocardial Infarction Date:: 2011 History of Any Multi-Drug Resistant Organisms: None Reported Past Surgical History: Heart Catheterization With Stent Additional Past Surgical History / Comment(s): PCI with stent at [facility] [place]. Past Anesthesia/Blood Transfusion Reactions: No Reported Reaction Date of Last Stent Placement:: 2011 Past Psychological History: Anxiety, Depression Additional Psychological History / Comment(s): Pt recently moved from [place] to this area. He does not drive, his significant other drives. There are 2 children in the home, ages 8 and 10yrs. Smoking Status: Current every day smoker Past Alcohol Use History: Daily Additional Past Alcohol Use History / Comment(s): Pt has ETOH abuse. He used to drink 1/5 of gin and beer daily. He now drinks every other day and less than 14 drinks total in a week. He states he uses marijuana-about 2-3 joints a day mostly because he has run out of his medications and marijuana keeps him relaxed. Past Drug Use History: Marijuana Additional Drug Use History / Comment(s): daily use of marijuana - Past Family History Mother Family Medical History: CVA/TIA, Diabetes Mellitus, Hypertension Additional Family Medical History / Comment(s): Mother is still living. Father Family Medical History: CVA/TIA Additional Family Medical History / Comment(s): Father is still living. Medications and Allergies Home Medications Medication Instructions Recorded Confirmed Type Aspirin EC [Ecotrin Low Dose] 81 mg PO DAILY #30 tablet. 02/11/17 07/25/17 Rx Allergies Allergy/AdvReac Type Severity Reaction Status Date / Time Mushroom AdvReac Nausea & Verified 07/25/17 22:02 Vomiting shellfish derived [Shellfish] AdvReac Nausea & Verified 07/25/17 22:02 Vomiting Physical Exam Vitals: Vital Signs Temp Pulse Pulse Resp BP BP BP 07/26/17 10:58 75 07/26/17 10:52 75 16 154/89 07/26/17 10:26 182/109 07/26/17 10:08 182/108 07/26/17 09:45 97.8 F 74 16 190/118 07/26/17 09:16 63 18 201/118 07/26/17 08:47 97.7 F 65 17 186/110 07/26/17 08:02 97.8 F 57 L 16 191/106 07/26/17 07:15 98.0 F 56 L 20 216/114 07/26/17 02:55 98 F 56 L 20 214/118 07/26/17 02:28 59 L 18 197/108 07/26/17 02:08 52 L 18 198/115 07/26/17 01:09 54 L 18 201/95 07/25/17 21:15 97.9 F 68 20 200/121 Pulse Ox 07/26/17 10:58 07/26/17 10:52 97 07/26/17 10:26 07/26/17 10:08 07/26/17 09:45 98 07/26/17 09:16 100 07/26/17 08:47 100 07/26/17 08:02 100 07/26/17 07:15 100 07/26/17 02:55 100 07/26/17 02:28 94 L 07/26/17 02:08 93 L 07/26/17 01:09 100 07/25/17 21:15 100 Intake and Output 07/25/17 07/26/17 07/26/17 22:59 06:59 14:59 Intake Total 1025 Balance 1025 Intake: Intake, IV Titration 1025 Amount Sodium Chloride 0.9% 1, 1025 000 ml @ 125 mls/hr IV . Q8H [facility] Rx#:[id number] Other: Voiding Method Toilet Weight 80.739 kg 80.739 kg PHYSICAL EXAMINATION: HEENT: Head is atraumatic, normocephalic. Pupils equal, round. Neck is supple. There is no elevated jugular venous pressure. HEART EXAMINATION: Heart S1, S2 normal. No murmur or gallop heard. CHEST EXAMINATION: Lungs are clear to auscultation and precussion. No chest wall tenderness is noted on palpation or with deep breathing. ABDOMEN: Soft, moderate to severe tenderness in the right upper quadrant. Bowel sounds are heard. No organomegaly noted. EXTREMITIES: 2+ peripheral pulses with no evidence of peripheral edema and no calf tenderness noted. NEUROLOGIC [patient is awake, alert and oriented -3.] . Results 07/25/17 23:10 07/25/17 22:28 Cardiac Enzymes 07/25/17 Range/Units 22:28 AST 69 H (17-59) U/L CBC 07/25/17 Range/Units 23:10 WBC 12.2 H (3.8-10.6) k/uL RBC 4.78 (4.30-5.90) m/uL Hgb 15.3 (13.0-17.5) gm/dL Hct 44.8 (39.0-53.0) % Plt Count 185 (150-450) k/uL Comprehensive Metabolic Panel 07/25/17 Range/Units 22:28 Sodium 138 (137-145) mmol/L Potassium 4.4 (3.5-5.1) mmol/L Chloride 100 (98-107) mmol/L Carbon Dioxide 21 L (22-30) mmol/L BUN 18 (9-20) mg/dL Creatinine 0.90 (0.66-1.25) mg/dL Glucose 139 H (74-99) mg/dL Calcium 10.4 H (8.4-10.2) mg/dL AST 69 H (17-59) U/L ALT 52 (21-72) U/L Alkaline Phosphatase 140 H (38-126) U/L Total Protein 8.4 H (6.3-8.2) g/dL Albumin 4.9 (3.5-5.0) g/dL Current Medications Generic Name Dose Route Start Last Admin Trade Name Freq PRN Reason Stop Dose Admin Amlodipine Besylate 10 mg 07/26/17 09:00 07/26/17 08:10 Norvasc PO 10 mg DAILY ENMA Administration Clonidine HCl 1 patch 07/26/17 10:30 07/26/17 10:55 Catapres-Tts 0.3mg Patch TRANSDERM 1 patch Q7D ENMA Administration Enalaprilat 2.5 mg 07/26/17 03:22 07/26/17 09:00 Vasotec IVP 2.5 mg Q4HR PRN Administration Blood Pressure - High Hydromorphone HCl 0.5 mg 07/26/17 00:17 07/26/17 10:00 Dilaudid Syringe IVP 0.5 mg Q3HR PRN Administration Moderate Pain Sodium Chloride 1,000 mls @ 125 mls/hr 07/25/17 23:30 07/26/17 10:02 Saline 0.9% IV 125 mls/hr .Q8H ENMA Administration Ketorolac Tromethamine 30 mg 07/26/17 00:17 07/26/17 04:21 Toradol IVP 07/31/17 00:18 30 mg Q6HR PRN Administration Moderate Pain Labetalol HCl 20 mg 07/26/17 11:00 Trandate IVP Q6H ENMA Lorazepam 1 mg 07/26/17 01:46 07/26/17 09:59 Ativan IV 1 mg Q2HR PRN Administration CIWA 8 or 9 Lorazepam 1 mg 07/26/17 01:46 Ativan IV Q1HR PRN CIWA 10 to 15 Lorazepam 2 mg 07/26/17 01:46 Ativan IV 07/28/17 01:47 Q10M PRN CIWA 16 or higher Naloxone HCl 0.2 mg 07/26/17 00:17 Narcan IV Q2M PRN Opioid Reversal Ondansetron HCl 4 mg 07/26/17 08:46 07/26/17 09:23 Zofran IVP 4 mg Q6HR PRN Administration Nausea And Vomiting Thiamine HCl 100 mg 07/26/17 17:00 Vitamin B-1 PO BID@1200,1700 [facility] Intake and Output 07/25/17 07/26/17 07/26/17 22:59 06:59 14:59 Intake Total 1025 Balance 1025 Intake: Intake, IV Titration 1025 Amount Sodium Chloride 0.9% 1, 1025 000 ml @ 125 mls/hr IV . Q8H [facility] Rx#:[id number] Other: Voiding Method Toilet Weight 80.739 kg 80.739 kg 07/25/17 23:10 07/25/17 22:28 EKG Interpretations (text) No EKG performed. Assessment and Plan Assessment: Assessment and Plan #1 acute pancreatitis #2 hypertensive urgency #3 known history of coronary artery disease with prior LAD stent, cardiac catheterization performed in January of this year revealed a patent stent in the LAD. #4 hyperlipidemia #5 nicotine dependence #6 EtOH use #7 history of noncompliance #8 family history of premature coronary artery disease #9 ischemic cardiomyopathy, echocardiogram with Doppler study performed in January of this year revealed an ejection fraction of 35-40%. Plan We will repeat an echocardiogram with Doppler study. He was also started on Norvasc 10 mg daily, clonidine patch, labetalol 20 IV every 6, lisinopril 10 mg was given. Patient's medications according to the office note in January were aspirin 81 mg daily, Lipitor 80 mg daily, lisinopril 20 mg daily, metoprolol tartrate 25 mg twice a day and Aldactone. We will discontinue the patient's Norvasc and resume his lisinopril 20 mg daily. We will also resume his Aldactone, baby aspirin. Further recommendations to follow DNP note has been reviewed, I agree with a documented findings and plan of care. Patient was seen and examined.
[2017-07-26] MEDS ORDERED: LISINOPRIL 10 MG TAB PO ONE (12:00)
[2017-07-26] MEDS ORDERED: LISINOPRIL 20 MG TAB PO SCH (12:00)
[2017-07-26] MEDS ORDERED: SPIRONOLACTONE 25 MG TAB PO SCH (12:00)
[2017-07-26] MEDS: LABETALOL 5 MG/ML VIAL MDV IVP SCH ×3 (12:37→22:39)
--- NOTE | 2017-07-26 16:02 | P.GSCN ---
History of Present Illness Consult date: 07/26/17 Reason for Consult: Pancreatitis History of present illness: Patient presents to the hospital with upper abdominal pain. Pain radiates to the back. Some nausea and vomiting. He has had episodes of pancreatitis in the past related to alcohol use. No known liver disease or biliary disease. This hospitalization his amylase and lipase are both elevated in addition to his liver function tests. He has a history of significant coronary artery disease. His EtOH level was normal however the patient smeels of alcohol. Pain is persisting. He was transferred to telemetry because of significant hypertension. Cardiology is following. He had a CAT scan showing normal biliary system in December. No recent ultrasound that I can find. Review of Systems The patient denies any acute changes in vision or hearing, no dysphagia or odynophagia, no chest pain or shortness of breath, no dysuria or hematuria, no headache, no runny nose, no rectal bleeding or melena, no unexplained weight loss Past Medical History Past Medical History: Coronary Artery Disease (CAD), Hyperlipidemia, Hypertension, Myocardial Infarction ([place]) Additional Past Medical History / Comment(s): Pt recently admitted to [facility] on 09/18 with pancreatitis/ETOH abuse. Other hx: Recent head injury with morris now removed. Last Myocardial Infarction Date:: 2011 History of Any Multi-Drug Resistant Organisms: None Reported Past Surgical History: Heart Catheterization With Stent Additional Past Surgical History / Comment(s): PCI with stent at [facility] [place]. Past Anesthesia/Blood Transfusion Reactions: No Reported Reaction Date of Last Stent Placement:: 2011 Past Psychological History: Anxiety, Depression Additional Psychological History / Comment(s): Pt recently moved from [place] to this area. He does not drive, his significant other drives. There are 2 children in the home, ages 8 and 10yrs. Smoking Status: Current every day smoker Past Alcohol Use History: Daily Additional Past Alcohol Use History / Comment(s): Pt has ETOH abuse. He used to drink 1/5 of gin and beer daily. He now drinks every other day and less than 14 drinks total in a week. He states he uses marijuana-about 2-3 joints a day mostly because he has run out of his medications and marijuana keeps him relaxed. Past Drug Use History: Marijuana Additional Drug Use History / Comment(s): daily use of marijuana - Past Family History Mother Family Medical History: CVA/TIA, Diabetes Mellitus, Hypertension Additional Family Medical History / Comment(s): Mother is still living. Father Family Medical History: CVA/TIA Additional Family Medical History / Comment(s): Father is still living. Medications and Allergies Home Medications Medication Instructions Recorded Confirmed Type Aspirin EC [Ecotrin Low Dose] 81 mg PO DAILY #30 tablet. 02/11/17 07/25/17 Rx Allergies Allergy/AdvReac Type Severity Reaction Status Date / Time Mushroom AdvReac Nausea & Verified 07/25/17 22:02 Vomiting shellfish derived [Shellfish] AdvReac Nausea & Verified 07/25/17 22:02 Vomiting Surgical - Exam Vital Signs Temp Pulse Resp BP Pulse Ox 97.9 F 68 20 200/121 100 07/25/17 21:15 07/25/17 21:15 07/25/17 21:15 07/25/17 21:15 07/25/17 21:15 Physical exam: General: Well-developed, well-nourished, unkempt-appearing with odor of alcohol noted HEENT: Normocephalic, sclerae nonicteric Abdomen: Epigastric tenderness, nondistended Extremities: No edema Neuro: Appears slightly confused, disagreeable Results - Labs 07/25/17 23:10 07/25/17 22:28 Abnormal Lab Results - Last 24 Hours (Table) 07/25/17 07/25/17 07/25/17 Range/Units 22:28 22:28 23:10 WBC 12.2 H (3.8-10.6) k/uL Neutrophils # 10.5 H (1.3-7.7) k/uL Lymphocytes # 0.8 L (1.0-4.8) k/uL Carbon Dioxide 21 L (22-30) mmol/L Glucose 139 H (74-99) mg/dL Calcium 10.4 H (8.4-10.2) mg/dL Total Bilirubin 1.8 H (0.2-1.3) mg/dL AST 69 H (17-59) U/L Alkaline Phosphatase 140 H (38-126) U/L Total Protein 8.4 H (6.3-8.2) g/dL Amylase 447 H* (30-110) U/L Lipase 3076 H (23-300) U/L Ur Specific [place] 1.041 H (1.001-1.035) Urine Protein 2+ H (Negative) Urine Glucose (UA) Trace H (Negative) Urine Ketones 4+ H (Negative) Urine Blood Trace H (Negative) Urine Bilirubin 1+ H (Negative) Urine Mucus Moderate H (None) /hpf Diabetes panel 07/25/17 Range/Units 22:28 Sodium 138 (137-145) mmol/L Potassium 4.4 (3.5-5.1) mmol/L Chloride 100 (98-107) mmol/L Carbon Dioxide 21 L (22-30) mmol/L BUN 18 (9-20) mg/dL Creatinine 0.90 (0.66-1.25) mg/dL Glucose 139 H (74-99) mg/dL Calcium 10.4 H (8.4-10.2) mg/dL AST 69 H (17-59) U/L ALT 52 (21-72) U/L Alkaline Phosphatase 140 H (38-126) U/L Total Protein 8.4 H (6.3-8.2) g/dL Albumin 4.9 (3.5-5.0) g/dL Calcium panel 07/25/17 Range/Units 22:28 Calcium 10.4 H (8.4-10.2) mg/dL Albumin 4.9 (3.5-5.0) g/dL Pituitary panel 07/25/17 Range/Units 22:28 Sodium 138 (137-145) mmol/L Potassium 4.4 (3.5-5.1) mmol/L Chloride 100 (98-107) mmol/L Carbon Dioxide 21 L (22-30) mmol/L BUN 18 (9-20) mg/dL Creatinine 0.90 (0.66-1.25) mg/dL Glucose 139 H (74-99) mg/dL Calcium 10.4 H (8.4-10.2) mg/dL Adrenal panel 07/25/17 Range/Units 22:28 Sodium 138 (137-145) mmol/L Potassium 4.4 (3.5-5.1) mmol/L Chloride 100 (98-107) mmol/L Carbon Dioxide 21 L (22-30) mmol/L BUN 18 (9-20) mg/dL Creatinine 0.90 (0.66-1.25) mg/dL Glucose 139 H (74-99) mg/dL Calcium 10.4 H (8.4-10.2) mg/dL Total Bilirubin 1.8 H (0.2-1.3) mg/dL AST 69 H (17-59) U/L ALT 52 (21-72) U/L Alkaline Phosphatase 140 H (38-126) U/L Total Protein 8.4 H (6.3-8.2) g/dL Albumin 4.9 (3.5-5.0) g/dL Assessment and Plan (1) Alcoholic pancreatitis Narrative/Plan: Patient's elevated liver enzymes may also be on the basis of alcohol use. Will check ultrasound gallbladder at this time. Continue nothing by mouth for now. Repeat lab work tomorrow. We'll follow with you. Current Visit: Yes Status: Acute Code(s): K85.20 - ALCOHOL INDUCED ACUTE PANCREATITIS WITHOUT NECROSIS OR INFCT SNOMED Code(s): 648791812
[2017-07-26] MEDS ORDERED: THIAMINE 100 MG TAB PO SCH (17:00)
--- NOTE | 2017-07-26 17:32 | US ---
EXAMINATION TYPE: US abdomen limited DATE OF EXAM: 07/26/2017 COMPARISON: NONE CLINICAL HISTORY: Elevated liver enzymes and pancreatitis evaluate . EXAM MEASUREMENTS: Liver Length: 18.1 cm Gallbladder Wall: 0.2 cm CBD: 0.5 cm Right Kidney: 10.9 x 4.5 x 5.3 cm Patient uncooperative making scanning technically difficult and limited. Pancreas: area obscured by bowel gas area appears like there may be some fluid Liver: wnl Gallbladder: small stone vs polyp Evidence for sonographic Marquez's sign: no CBD: wnl Right Kidney: wnl IMPRESSION: There is an echogenic small focus on the gallbladder wall that could be an adherent stone or polyp. There is a phrygian cap. No dilated ducts. No focal liver defect.
[2017-07-26 22:52] VITALS: BP 188/118; PULSE 81; RESP 16; TEMP 98.7
--- NOTE | 2017-07-27 06:29 | HP ---
HISTORY AND PHYSICAL CHIEF COMPLAINT: A 37-year-old, significant for heart disease LAD, hypertension, dyslipidemia, nicotine addiction, alcohol abuse. He had a patent LAD stent. Labs are reviewed. He was admitted to the hospital for hypertension acceleration and acute pancreatitis. Vasotec was given, which did not help the patient at which time patient continued with other blood pressure medications including Norvasc and clonidine for alcohol withdrawal as he stopped drinking alcohol a couple days ago. Cardiology has been consulted as well as Surgery for pancreatitis. PAST MEDICAL HISTORY: Coronary artery disease, dyslipidemia, hypertension, alcohol abuse, pancreatitis. SURGICAL HISTORY: Heart catheterization with stent. History of anxiety and depression. He recently moved from [place]. Has 2 children in the home, ages 8 and 10[address] He is a current everyday smoker and daily alcohol user. Drinks a 5th of gin and beer daily, 14 drinks in a week he says. Marijuana 2 to 3 joints a day. Marijuana keeps him relaxed. FAMILY HISTORY: Mother CVA, TIA, diabetes, hypertension. Father CVA, TIA. HOME MEDICATIONS: Aspirin 81 mg daily. ALLERGIES: Allergies are MUSHROOM and SHELLFISH. PHYSICAL EXAMINATION: Vital signs reveal pulse of 75, temp 97 to 98, respiratory rate 16 to 20, blood pressure is 150s to 220 systolic over 90s to 110. HEENT: Normocephalic, atraumatic. HEART: S1, S2. Lungs are clear to auscultation. Abdomen is soft, tenderness to palpation. Diffuse upper quadrants. No guarding. Peripheral pulses 2+, pedal edema trace. Dorsalis pedis is trace. NEUROLOGIC: Alert and oriented x3. PSYCH: Fair mood and affect. White count 12.2, hemoglobin is 15.3, AST 69, white count 12.2, hemoglobin 15.3, sodium 134, potassium 4.4, alkaline phosphatase 140. ASSESSMENT: 1. Hypertension acceleration. 2. Acute pancreatitis. 3. Alcohol abuse. [facility] protocol. Clonidine and Norvasc for blood pressure, on IV Vasotec. Cardiology consult. Known history coronary disease, LAD stent, dyslipidemia, nicotine addiction, alcohol abuse, noncompliance, ischemic cardiomyopathy with ejection fraction 35% to 40%. Cardiology is consulted as well as Surgery. Advance diet if cleared by surgery. Hypertension controlled by Cardiology. MMODL / IJN: [id number] /
[2017-07-27] MEDS ORDERED: LISINOPRIL 20 MG TAB PO SCH (09:00)
[2017-07-27] MEDS ORDERED: NIFEdipine XL 90 MG TAB.ER.24 PO SCH (09:00)
[2017-07-27] MEDS ORDERED: ASPIRIN 81 MG PO SCH (09:00)
--- NOTE | 2017-07-28 07:51 | ECHOF ---
Referral Reason:htn MEASUREMENTS -------- HEIGHT: 157.5 cm WEIGHT: 80.7 kg BP: 183/112 RVIDd: 3.2 cm (< 3.3) IVSd: 1.4 cm (0.6 - 1.1) LVIDd: 4.8 cm (3.9 - 5.3) LVPWd: 1.4 cm (0.6 - 1.1) IVSs: 1.5 cm LVIDs: 3.9 cm LVPWs: 1.4 cm LAESV Index (A-L): 27.05 ml/m Ao Diam: 4.2 cm (2.0 - 3.7) AV Cusp: 2.2 cm (1.5 - 2.6) LA Diam: 3.6 cm (2.7 - 3.8) MV EXCURSION: 23.601 mm (> 18.000) MV EF SLOPE: 95 mm/s (70 - 150) EPSS: 0.3 cm MV E Lopez: 0.69 m/s MV DecT: 235 ms MV A Lopez: 0.85 m/s MV E/A Ratio: 0.82 FINDINGS -------- Sinus rhythm. This was a technically adequate study. The left ventricular size is normal. There is moderate concentric left ventricular hypertrophy. Overall left ventricular systolic function is low-normal with, an EF between 50 - 55 %. The right ventricle is mildly enlarged. Normal LA size by volume 22+/-6 ml/m2. The right atrial size is normal. There is mild aortic valve sclerosis. There is no evidence of aortic regurgitation. Mild mitral annular calcification present. Mild mitral regurgitation is present. Mild tricuspid regurgitation present. There is no evidence of pulmonary hypertension. The right ventricular systolic pressure, as measured by Doppler, is {RVSP}. There is no pulmonic regurgitation present. Aortic Root is mildly dilated and measures 4.2cm. There is no pericardial effusion. CONCLUSIONS -------- 1. The left ventricular size is normal. 2. There is no evidence of pulmonary hypertension. 3. The right ventricular systolic pressure, as measured by Doppler, is {RVSP}. 4. There is no pulmonic regurgitation present. 5. Aortic Root is mildly dilated and measures 4.2cm. 6. There is no pericardial effusion. 7. There is moderate concentric left ventricular hypertrophy. 8. Overall left ventricular systolic function is low-normal with, an EF between 50 - 55 %. 9. The right ventricle is mildly enlarged. 10. Normal LA size by volume 22+/-6 ml/m2. 11. There is mild aortic valve sclerosis. 12. Mild mitral annular calcification present. 13. Mild mitral regurgitation is present. 14. Mild tricuspid regurgitation present. STUDENT FINANCE SPECIALIST: Neetu Coto RDCS
== END 2017-07-26 23:15 | disposition left against medical advice (07) | DRG 282 ==
LOC: EC 21:13 → 5MS5E 07-26 00:23 → 6SEL 07-26 10:04
PROVIDERS: ADMIT Family Medicine; ATTEND Family Medicine
DX: K85.20 Alcohol induced acute pancreatitis without necrosis or infection (principal); I10 Essential (primary) hypertension; E78.5 Hyperlipidemia, unspecified; F10.10 Alcohol abuse, uncomplicated; F17.200 Nicotine dependence, unspecified, uncomplicated; I16.0 Hypertensive urgency; I25.10 Atherosclerotic heart disease of native coronary artery without angina pectoris; I25.2 Old myocardial infarction; I25.5 Ischemic cardiomyopathy; K59.00 Constipation, unspecified; F12.90 Cannabis use, unspecified, uncomplicated; F32.9 Major depressive disorder, single episode, unspecified; F41.9 Anxiety disorder, unspecified; Z79.82 Long term (current) use of aspirin; Z91.14 Patient's other noncompliance with medication regimen; Z91.19 Patient's noncompliance with other medical treatment and regimen; Z95.5 Presence of coronary angioplasty implant and graft; Z88.8 Allergy status to other drugs, medicaments and biological substances; Z91.013 Allergy to seafood; Z82.49 Family history of ischemic heart disease and other diseases of the circulatory system
CPT/HCPCS: 36415; 76705; 80053; 80320; 81001; 82150; 83690; 85025; 93306; 96361; 96374; 96375; 96376; 99284

== ENCOUNTER 2017-12-09 19:37 | Inpatient (IN) | payer OTHER ==
[2017-12-09] MEDS ORDERED: SODIUM CHLORIDE 0.9% 500 ML IV ONE (19:54)
[2017-12-09] MEDS ORDERED: MORPHINE SULFATE 4 MG/ML SYRINGE IVP STA ×2 (19:54→22:05)
[2017-12-09] MEDS ORDERED: SODIUM CHLORIDE 0.9% 1,000 ML IV ONE (19:54)
--- NOTE | 2017-12-09 19:58 | ED ---
Abdominal Pain HPI - General Chief Complaint: Abdominal Pain Stated Complaint: Abdominal Pain Time Seen by Provider: 12/09/17 19:39 Source: EMS Mode of arrival: EMS Limitations: no limitations - History of Present Illness Initial Comments: 37-year-old male patient with past medical history significant for alcohol- induced pancreatitis presents to the emergency department today for evaluation of upper abdominal pain and vomiting. Patient states that his last episode of pancreatitis was in October. States he did stop drinking at that time however did have a recurrence of alcohol consumption. States that 4 days ago he developed symptoms of intense upper abdominal pain that radiates into his back. States that he vomited for 2 days and was unable to keep anything down. He states that today the pain became so severe he couldn't wait any longer. He denies any constipation or diarrhea. Denies any fevers or chills with this. He reports his last drink of alcohol was 4 days ago. Patient denies any recent rash, shortness breath, chest pain, numbness, tingling, dizziness, weakness, hematuria, dysuria, urinary urgency, urinary frequency, headache, visual changes , or any other complaints. - Related Data Home Medications Medication Instructions Recorded Confirmed Atorvastatin [Lipitor] 80 mg PO HS 09/27/17 12/09/17 INSULIN LISPRO (HumaLOG) [HumaLOG] 5 units SQ ACHS 12/09/17 12/09/17 Previous Rx's Medication Instructions Recorded Aspirin EC [Ecotrin Low Dose] 81 mg PO DAILY #30 tablet. 02/11/17 Insulin Glargine,Hum.rec.anlog 22 unit SQ HS #1 syr 10/04/17 [Eric Kline U-100] Lisinopril [Zestril] 20 mg PO BID #60 tab 10/04/17 Metoprolol Tartrate [Lopressor] 50 mg PO BID #60 tab 10/04/17 cloNIDine HCL [Catapres] 0.1 mg PO TID #90 tab 10/04/17 hydrALAZINE HCL [Apresoline] 50 mg PO TID #90 tab 10/04/17 Allergies Allergy/AdvReac Type Severity Reaction Status Date / Time Mushroom AdvReac Nausea & Verified 12/09/17 20:35 Vomiting shellfish derived [Shellfish] AdvReac Nausea & Verified 12/09/17 20:35 Vomiting Review of Systems ROS Statement: Those systems with pertinent positive or pertinent negative responses have been documented in the HPI. ROS Other: All systems not noted in ROS Statement are negative. Past Medical History Past Medical History: Coronary Artery Disease (CAD), Diabetes Mellitus, Hyperlipidemia, Hypertension, Myocardial Infarction (HI) Additional Past Medical History / Comment(s): pancreatitis/ETOH abuse. Other hx: Recent head injury with morris now removed. Last Myocardial Infarction Date:: 2011 History of Any Multi-Drug Resistant Organisms: None Reported Past Surgical History: Heart Catheterization With Stent Additional Past Surgical History / Comment(s): PCI with stent at [facility] [place].1997 had rt hand sx to repair nerve/tendons d/t injury. Past Anesthesia/Blood Transfusion Reactions: No Reported Reaction Date of Last Stent Placement:: 2011 Past Psychological History: Anxiety, Depression Smoking Status: Current every day smoker Past Alcohol Use History: Occasional Past Drug Use History: Marijuana - Past Family History Mother Family Medical History: CVA/TIA, Diabetes Mellitus, Hypertension Additional Family Medical History / Comment(s): Mother is still living. Father Family Medical History: CVA/TIA Additional Family Medical History / Comment(s): Father is still living. General Exam Limitations: no limitations General appearance: alert, in no apparent distress, other (Physical well- developed, well-nourished adult male patient in no acute distress. Vital signs upon presentation are temperature 97.6F, pulse 74, respirations 18, blood pressure 165/95, pulse ox 98% on room air.) Eye exam: Present: normal appearance, PERRL, EOMI. Absent: scleral icterus, conjunctival injection, periorbital swelling ENT exam: Present: normal exam, normal oropharynx, mucous membranes moist Respiratory exam: Present: normal lung sounds bilaterally. Absent: respiratory distress, wheezes, rales, rhonchi, stridor Cardiovascular Exam: Present: regular rate, normal rhythm, normal heart sounds. Absent: systolic murmur, diastolic murmur, rubs, gallop, clicks GI/Abdominal exam: Present: soft, tenderness (Mid epigastric tenderness), normal bowel sounds. Absent: distended, guarding, rebound, rigid Neurological exam: Present: alert, oriented X3, CN II-XII intact Psychiatric exam: Present: normal affect, normal mood Skin exam: Present: warm, dry, intact, normal color. Absent: rash Course Vital Signs 12/09/17 19:40 Temperature 97.6 F Pulse Rate 74 Respiratory 18 Rate Blood Pressure 165/95 O2 Sat by Pulse 98 Oximetry Medical Decision Making - Medical Decision Making 37-year-old male patient presented to the emergency department today for evaluation of upper abdominal pain radiates into his back. Physical examination does reveal epigastric abdominal tenderness. Labs reviewed and did reveal white blood cell count of 13.8, glucose 182, amylase 127, lipase 1013. Urinalysis showed specific gravity 1.041, 2+ protein, 4+ glucose, 1+ ketone, rare bacteria, 5 hyaline casts, few urine mucus. Urine drug screen was positive for opiates, tricyclic antidepressants, methamphetamines, cocaine, and marijuana. Alcohol was negative. Acetone was negative. Symptoms and laboratory findings are consistent with acute pancreatitis. Patient does have a history of alcohol abuse last was 4 days ago. Patient will be admitted for fluid resuscitation and pain management. My attending Dr. Summers spoke to Dr. Deleon who is accepting. - Lab Data Result diagrams: 12/09/17 20:04 12/09/17 20:04 Lab Results 12/09/17 12/09/17 12/09/17 Range/Units 20:04 20:04 20:04 WBC 13.8 H (3.8-10.6) k/uL RBC 5.37 (4.30-5.90) m/uL Hgb 16.0 (13.0-17.5) gm/dL Hct 47.3 (39.0-53.0) % MCV 88.0 (80.0-100.0) fL MCH 29.9 (25.0-35.0) pg MCHC 33.9 (31.0-37.0) g/dL RDW 13.0 (11.5-15.5) % Plt Count 230 (150-450) k/uL Neutrophils % 77 % Lymphocytes % 17 % Monocytes % 3 % Eosinophils % 2 % Basophils % 0 % Neutrophils # 10.6 H (1.3-7.7) k/uL Lymphocytes # 2.4 (1.0-4.8) k/uL Monocytes # 0.4 (0-1.0) k/uL Eosinophils # 0.3 (0-0.7) k/uL Basophils # 0.0 (0-0.2) k/uL Sodium 138 (137-145) mmol/L Potassium 4.4 (3.5-5.1) mmol/L Chloride 100 (98-107) mmol/L Carbon Dioxide 24 (22-30) mmol/L Anion Gap 14 mmol/L BUN 17 (9-20) mg/dL Creatinine 0.92 (0.66-1.25) mg/dL Est GFR (CKD-EPI)AfAm >90 (>60 ml/min/1.73 sqM) Est GFR (CKD-EPI)NonAf >90 (>60 ml/min/1.73 sqM) Glucose 182 H (74-99) mg/dL Calcium 10.1 (8.4-10.2) mg/dL Total Bilirubin 1.0 (0.2-1.3) mg/dL AST 24 (17-59) U/L ALT 20 L (21-72) U/L Alkaline Phosphatase 95 (38-126) U/L Total Protein 7.9 (6.3-8.2) g/dL Albumin 4.7 (3.5-5.0) g/dL Amylase 127 H (30-110) U/L Lipase 1013 H (23-300) U/L Urine Color Urine Appearance (Clear) Urine pH (5.0-8.0) Ur Specific [place] (1.001-1.035) Urine Protein (Negative) Urine Glucose (UA) (Negative) Urine Ketones (Negative) Urine Blood (Negative) Urine Nitrite (Negative) Urine Bilirubin (Negative) Urine Urobilinogen (<2.0) mg/dL Ur Leukocyte Esterase (Negative) Urine RBC (0-5) /hpf Urine WBC (0-5) /hpf Ur Squamous Epith Cells (0-4) /hpf Urine Bacteria (None) /hpf Hyaline Casts (0-2) /lpf Urine Mucus (None) /hpf Urine Opiates Screen (NotDetected) Ur Oxycodone Screen (NotDetected) Urine Methadone Screen (NotDetected) Ur Propoxyphene Screen (NotDetected) Ur Barbiturates Screen (NotDetected) U Tricyclic Antidepress (NotDetected) Ur Phencyclidine Scrn (NotDetected) Ur Amphetamines Screen (NotDetected) U Methamphetamines Scrn (NotDetected) U Benzodiazepines Scrn (NotDetected) Urine Cocaine Screen (NotDetected) U Marijuana (THC) Screen (NotDetected) Serum Alcohol <10 mg/dL Acetone, Qual Negative (Negative) 12/09/17 Range/Units 20:16 WBC (3.8-10.6) k/uL RBC (4.30-5.90) m/uL Hgb (13.0-17.5) gm/dL Hct (39.0-53.0) % MCV (80.0-100.0) fL MCH (25.0-35.0) pg MCHC (31.0-37.0) g/dL RDW (11.5-15.5) % Plt Count (150-450) k/uL Neutrophils % % Lymphocytes % % Monocytes % % Eosinophils % % Basophils % % Neutrophils # (1.3-7.7) k/uL Lymphocytes # (1.0-4.8) k/uL Monocytes # (0-1.0) k/uL Eosinophils # (0-0.7) k/uL Basophils # (0-0.2) k/uL Sodium (137-145) mmol/L Potassium (3.5-5.1) mmol/L Chloride (98-107) mmol/L Carbon Dioxide (22-30) mmol/L Anion Gap mmol/L BUN (9-20) mg/dL Creatinine (0.66-1.25) mg/dL Est GFR (CKD-EPI)AfAm (>60 ml/min/1.73 sqM) Est GFR (CKD-EPI)NonAf (>60 ml/min/1.73 sqM) Glucose (74-99) mg/dL Calcium (8.4-10.2) mg/dL Total Bilirubin (0.2-1.3) mg/dL AST (17-59) U/L ALT (21-72) U/L Alkaline Phosphatase (38-126) U/L Total Protein (6.3-8.2) g/dL Albumin (3.5-5.0) g/dL Amylase (30-110) U/L Lipase (23-300) U/L Urine Color Yellow Urine Appearance Clear (Clear) Urine pH 6.0 (5.0-8.0) Ur Specific [place] 1.041 H (1.001-1.035) Urine Protein 2+ H (Negative) Urine Glucose (UA) 4+ H (Negative) Urine Ketones 1+ H (Negative) Urine Blood Negative (Negative) Urine Nitrite Negative (Negative) Urine Bilirubin Negative (Negative) Urine Urobilinogen 2.0 (<2.0) mg/dL Ur Leukocyte Esterase Negative (Negative) Urine RBC <1 (0-5) /hpf Urine WBC 1 (0-5) /hpf Ur Squamous Epith Cells <1 (0-4) /hpf Urine Bacteria Rare H (None) /hpf Hyaline Casts 5 H (0-2) /lpf Urine Mucus Few H (None) /hpf Urine Opiates Screen Detected H (NotDetected) Ur Oxycodone Screen Not Detected (NotDetected) Urine Methadone Screen Not Detected (NotDetected) Ur Propoxyphene Screen Not Detected (NotDetected) Ur Barbiturates Screen Not Detected (NotDetected) U Tricyclic Antidepress Detected H (NotDetected) Ur Phencyclidine Scrn Not Detected (NotDetected) Ur Amphetamines Screen Not Detected (NotDetected) U Methamphetamines Scrn Detected H (NotDetected) U Benzodiazepines Scrn Not Detected (NotDetected) Urine Cocaine Screen Detected H (NotDetected) U Marijuana (THC) Screen Detected H (NotDetected) Serum Alcohol mg/dL Acetone, Qual (Negative) - Radiology Data Radiology results: report reviewed, image reviewed 2 views of the abdomen showed bowel gas pattern is normal. No sign of intestinal obstruction or pneumoperitoneum. Fecal pattern is normal. Lung bases are clear. There are no pathologic calcifications over the kidneys. There is no evidence of a mass. Impression by Dr. Choi shows nonacute abdomen. No change. Disposition Clinical Impression: Acute alcoholic pancreatitis Disposition: ADMITTED IP TO THIS [facility] Condition: Serious Referrals: None,Stated [Primary Care Provider] - 1-2 days Decision to Admit Reason: Admit from EC Decision Date: 12/09/17 Decision Time: 22:09
[2017-12-09 20:12] LABS: Basophils % (A) 0 %; Eosinophils # (A) 0.3 k/uL (0-0.7); Eosinophils % (A) 2 %; HCT 47.3 % (39.0-53.0); Lymphocytes # (A) 2.4 k/uL (1.0-4.8); Lymphocytes % (A) 17 %; MCH 29.9 pg (25.0-35.0); MCHC 33.9 g/dL (31.0-37.0); Mean Platelet Volume 7.9; Monocytes # (A) 0.4 k/uL (0-1.0); Monocytes % (A) 3 %; Neutrophils # (A) 10.6 k/uL (1.3-7.7); Neutrophils % (A) 77 %; Platelet Count 230 k/uL (150-450); RBC 5.37 m/uL (4.30-5.90); WBC 13.8 k/uL (3.8-10.6)
[2017-12-09 20:22] LABS: ALT 20 U/L (21-72); AST 24 U/L (17-59); Albumin 4.7 g/dL (3.5-5.0); Alcohol <10 mg/dL; Alkaline Phosphatase 95 U/L (38-126); Amylase 127 U/L (30-110); Anion Gap 14 mmol/L; Blood Urea Nitrogen 17 mg/dL (9-20); Calcium 10.1 mg/dL (8.4-10.2); Carbon Dioxide 24 mmol/L (22-30); Chloride 100 mmol/L (98-107); Glucose 182 mg/dL (74-99); Lipase 1013 U/L (23-300); Potassium 4.4 mmol/L (3.5-5.1); Sodium 138 mmol/L (137-145); Total Protein 7.9 g/dL (6.3-8.2)
[2017-12-09 20:28] LABS: Appearance,Urine Clear (Clear); Bacteria,Urine Rare /hpf; Bilirubin,Urine Negative (Negative); Blood,Urine Negative (Negative); Color,Urine Yellow; Glucose,Urine (UA) 4+ (Negative); Hyaline Casts,Urine 5 /lpf (0-2); Ketones,Urine 1+ (Negative); Leukocyte Esterase,Urine Negative (Negative); Mucus,Urine Few /hpf; Nitrite,Urine Negative (Negative); Protein,Urine 2+ (Negative); RBC,Urine <1 /hpf (0-5); Specific Gravity,Urine 1.041 (1.001-1.035); Squamous Epithelial Cell,Urine <1 /hpf (0-4); WBC,Urine 1 /hpf (0-5)
--- NOTE | 2017-12-09 20:30 | XR ---
EXAMINATION TYPE: XR KUB DATE OF EXAM: 12/09/2017 COMPARISON: 02/09/2017 HISTORY: Pain TECHNIQUE: 2 views FINDINGS: Bowel gas pattern is normal. There is no sign of intestinal obstruction or pneumoperitoneum . Fecal pattern is normal. Lung bases are clear. There are no pathologic calcifications over the kidn eys. There is no evidence of a mass. IMPRESSION: Nonacute abdomen. No change.
[2017-12-09 20:37] LABS: Amphetamine Screen,Urine Not Detected (NotDetected); Barbiturate Screen,Urine Not Detected (NotDetected); Benzodiazepines Screen,Urine Not Detected (NotDetected); Cocaine Screen,Urine Detected (NotDetected); Methadone Screen, Urine Not Detected (NotDetected); Opiate Screen,Urine Detected (NotDetected); Oxycodone Screen, Urine Not Detected (NotDetected); Phencyclidine Screen,Urine Not Detected (NotDetected); Tricyclic Antidepressant,Urine Detected (NotDetected); Urn Cannabinoid Scrn Detected (NotDetected)
[2017-12-09] MEDS ORDERED: NALOXONE 0.4 MG/ML 1 ML VIAL IV PRN (22:03)
[2017-12-09] MEDS ORDERED: ONDANSETRON 4 MG/2 ML VIAL IVP PRN (22:05)
[2017-12-09] MEDS: SODIUM CHLORIDE 0.9% 1,000 ML IV SCH (22:33)
[2017-12-10 00:05] VITALS: BMI 25.7
[2017-12-10 00:16] LABS: Glucose,Whole Blood 121 mg/dL (75-99)
[2017-12-10] MEDS: MORPHINE SULFATE 4 MG/ML SYRINGE IV PRN ×7 (01:34→21:01)
[2017-12-10] MEDS: SODIUM CHLORIDE 0.9% 1,000 ML IV SCH ×3 (06:04→17:44)
[2017-12-10 07:00] LABS: Glucose,Whole Blood 141 mg/dL (75-99)
[2017-12-10 07:33] LABS: Basophils % (A) 0 %; Eosinophils # (A) 0.2 k/uL (0-0.7); Eosinophils % (A) 1 %; HCT 44.5 % (39.0-53.0); Lymphocytes # (A) 2.4 k/uL (1.0-4.8); Lymphocytes % (A) 15 %; MCH 31.2 pg (25.0-35.0); MCHC 35.9 g/dL (31.0-37.0); MCV 86.9 fL (80.0-100.0); Mean Platelet Volume 8.8; Monocytes # (A) 0.7 k/uL (0-1.0); Monocytes % (A) 4 %; Neutrophils # (A) 12.4 k/uL (1.3-7.7); Neutrophils % (A) 78 %; Platelet Count 220 k/uL (150-450); RBC 5.12 m/uL (4.30-5.90); RDW 13.1 % (11.5-15.5); WBC 15.9 k/uL (3.8-10.6)
[2017-12-10 08:17] LABS: Albumin 4.5 g/dL (3.5-5.0); Amylase 145 U/L (30-110); Anion Gap 15 mmol/L; Calcium 9.6 mg/dL (8.4-10.2); Carbon Dioxide 20 mmol/L (22-30); Chloride 106 mmol/L (98-107); Glucose 139 mg/dL (74-99); Lipase 595 U/L (23-300); Sodium 141 mmol/L (137-145); Total Bilirubin 1.1 mg/dL (0.2-1.3); Total Protein 7.3 g/dL (6.3-8.2)
[2017-12-10 08:25] LABS: Blood Urea Nitrogen 13 mg/dL (9-20); Potassium 4.7 mmol/L (3.5-5.1)
[2017-12-10 08:26] LABS: ALT 25 U/L (21-72); AST 26 U/L (17-59); Alkaline Phosphatase 87 U/L (38-126)
[2017-12-10] MEDS: hydrALAZINE HCL 20 MG/ML 1 ML VIAL IVP PRN ×3 (09:42→21:29)
[2017-12-10] MEDS: NICOTINE 7MG/24HR PATCH TRANSDERM SCH (09:44)
[2017-12-10] MEDS ORDERED: MORPHINE SULFATE 4 MG/ML SYRINGE IVP STA ×2 (10:55→22:22)
[2017-12-10] MEDS ORDERED: cloNIDine 0.2 MG/24HR PATCH 1 PATCH PATCH TRANSDERM SCH (11:00)
[2017-12-10 11:12] LABS: HCT 42.4 % (39.0-53.0); HGB 15.1 gm/dL (13.0-17.5); MCHC 35.5 g/dL (31.0-37.0); MCV 87.4 fL (80.0-100.0); Mean Platelet Volume 7.6; Platelet Count 207 k/uL (150-450); RBC 4.85 m/uL (4.30-5.90); RDW 12.9 % (11.5-15.5); WBC 12.6 k/uL (3.8-10.6)
[2017-12-10 11:19] LABS: Anion Gap 16 mmol/L; Blood Urea Nitrogen 10 mg/dL (9-20); Calcium 9.4 mg/dL (8.4-10.2); Carbon Dioxide 18 mmol/L (22-30); Chloride 104 mmol/L (98-107); Glucose 146 mg/dL (74-99); Potassium 3.9 mmol/L (3.5-5.1); Sodium 138 mmol/L (137-145)
[2017-12-10 11:34] LABS: Prothrombin Time 9.8 sec (9.0-12.0)
[2017-12-10 11:39] LABS: Creatine Kinase 111 U/L (55-170)
[2017-12-10 11:52] LABS: Creatine Kinase MB 0.6 ng/mL (0.0-2.4); Troponin I <0.012 ng/mL (0.000-0.034)
[2017-12-10 12:00] LABS: Glucose,Whole Blood 150 mg/dL (75-99)
[2017-12-10 17:16] LABS: Glucose,Whole Blood 173 mg/dL (75-99)
[2017-12-10] MEDS ORDERED: ENALAPRILAT 1.25 MG/ML 1 ML VIAL IVP STA (17:29)
[2017-12-10 19:54] LABS: Glucose,Whole Blood 168 mg/dL (75-99)
[2017-12-11] MEDS: MORPHINE SULFATE 4 MG/ML SYRINGE IV PRN ×7 (01:08→21:06)
[2017-12-11 06:43] LABS: Glucose,Whole Blood 210 mg/dL (75-99)
[2017-12-11] MEDS: SODIUM CHLORIDE 0.9% 1,000 ML IV SCH ×4 (07:03→21:07)
[2017-12-11] MEDS: hydrALAZINE HCL 20 MG/ML 1 ML VIAL IVP PRN ×3 (07:51→14:13)
[2017-12-11] MEDS: NICOTINE 7MG/24HR PATCH TRANSDERM SCH (07:58)
[2017-12-11 10:31] LABS: Basophils % (A) 0 %; Eosinophils # (A) 0.1 k/uL (0-0.7); Eosinophils % (A) 1 %; HCT 47.3 % (39.0-53.0); HGB 15.8 gm/dL (13.0-17.5); Lymphocytes # (A) 1.7 k/uL (1.0-4.8); Lymphocytes % (A) 15 %; MCH 30.3 pg (25.0-35.0); MCHC 33.3 g/dL (31.0-37.0); MCV 90.7 fL (80.0-100.0); Monocytes # (A) 0.6 k/uL (0-1.0); Monocytes % (A) 5 %; Neutrophils # (A) 9.4 k/uL (1.3-7.7); Neutrophils % (A) 79 %; Platelet Count 224 k/uL (150-450); RBC 5.21 m/uL (4.30-5.90); RDW 13.3 % (11.5-15.5)
[2017-12-11 10:45] LABS: ALT 22 U/L (21-72); AST 19 U/L (17-59); Albumin 4.9 g/dL (3.5-5.0); Alkaline Phosphatase 90 U/L (38-126); Anion Gap 16 mmol/L; Blood Urea Nitrogen 7 mg/dL (9-20); Calcium 10.3 mg/dL (8.4-10.2); Carbon Dioxide 20 mmol/L (22-30); Chloride 100 mmol/L (98-107); Glucose 244 mg/dL (74-99); Potassium 4.6 mmol/L (3.5-5.1); Sodium 136 mmol/L (137-145); Total Bilirubin 0.9 mg/dL (0.2-1.3)
[2017-12-11 11:49] LABS: Glucose,Whole Blood 230 mg/dL (75-99)
[2017-12-11] MEDS: INSULIN ASPART 100 UNIT/ML 1 ML 10 ML VIAL SQ SCH ×3 (12:56→21:08)
[2017-12-11 15:56] VITALS: RESP 16
[2017-12-11 16:44] LABS: Glucose,Whole Blood 261 mg/dL (75-99)
--- NOTE | 2017-12-11 16:47 | P.HPIM ---
History of Present Illness H&P Date: 12/10/17 Chief Complaint: Abdominal pain 37-year-old male patient with past medical history significant for hypertension , diabetes type 2, coronary artery disease with history of stent placement and alcohol-induced pancreatitis presents to the emergency department today for evaluation of upper abdominal pain and vomiting. States that 4 days ago he developed symptoms of intense upper abdominal pain that radiates into his back. States that he vomited for 2 days and was unable to keep anything down. He states that today the pain became so severe he couldn't wait any longer. He denies any constipation or diarrhea. Denies any fevers or chills with this. He reports his last drink of alcohol was 4 days ago. He does binge drinking. Patient denies any recent rash, shortness breath, chest pain, numbness, tingling , dizziness, weakness, hematuria, dysuria, urinary urgency, urinary frequency, headache, visual changes, or any other complaints. Patient states that his last episode of pancreatitis was in October. States he did stop drinking at that time however did have a recurrence of alcohol consumption. \ KUB x-ray showed no acute abdomen Lipase 595 amylase 125 Review of Systems Constitutional: Patient denies any fever or chills . No generalized weakness or weight loss. Abdomen: Nausea and vomiting and abdominal pain epigastric region radiating to the back. Cardiovascular: Patient denies any chest pain or short of breath no palpitations. Respiratory: patient denied any cough is from production. No shortness of breath Neurologic: Patient denied any numbness or tingling headache. Musculoskeletal: Patient denies any complaints of joint swelling or deformity. Skin: Negative Psychiatric: Negative Endocrine: No heat or cold intolerance. No recent weight gain. Genitourinary: No dysuria or hematuria. All other 14 point ROS negative except the above Past Medical History Past Medical History: Coronary Artery Disease (CAD), Diabetes Mellitus, Hyperlipidemia, Hypertension, Myocardial Infarction (CT) Additional Past Medical History / Comment(s): pancreatitis/ETOH abuse. Other hx: Recent head injury with morris now removed. Last Myocardial Infarction Date:: 2011 History of Any Multi-Drug Resistant Organisms: None Reported Past Surgical History: Heart Catheterization With Stent Additional Past Surgical History / Comment(s): PCI with stent at [facility] [place] had rt hand sx to repair nerve/tendons d/t injury. Past Anesthesia/Blood Transfusion Reactions: No Reported Reaction Date of Last Stent Placement:: 2011 Past Psychological History: Anxiety, Depression Additional Psychological History / Comment(s): He does not drive, his significant other drives. There are 4 children in the home Smoking Status: Current every day smoker Past Alcohol Use History: Occasional Additional Past Alcohol Use History / Comment(s): Pt has hx of ETOH abuse. He used to drink 1/5 of gin and beer daily.pt stated he quit drinking beofre 2016 but this past and sat both days he drank a pint and few beers. He states he uses marijuana-about 2-3 joints a day mostly because he has run out of his medications and marijuana keeps him relaxed. Past Drug Use History: Marijuana Additional Drug Use History / Comment(s): daily use of marijuana - Past Family History Mother Family Medical History: CVA/TIA, Diabetes Mellitus, Hypertension Additional Family Medical History / Comment(s): Mother is still living. Father Family Medical History: CVA/TIA Additional Family Medical History / Comment(s): Father is still living. Medications and Allergies Home Medications Medication Instructions Recorded Confirmed Type Aspirin EC [Ecotrin Low Dose] 81 mg PO DAILY #30 tablet. 02/11/17 12/09/17 Rx Atorvastatin [Lipitor] 80 mg PO HS 09/27/17 12/09/17 History Insulin Glargine,Hum.rec.anlog 22 unit SQ HS #1 syr 10/04/17 12/09/17 Rx [Basaglar Kwikpen U-100] Lisinopril [Zestril] 20 mg PO BID #60 tab 10/04/17 12/09/17 Rx Metoprolol Tartrate [Lopressor] 50 mg PO BID #60 tab 10/04/17 12/09/17 Rx cloNIDine HCL [Catapres] 0.1 mg PO TID #90 tab 10/04/17 12/09/17 Rx hydrALAZINE HCL [Apresoline] 50 mg PO TID #90 tab 10/04/17 12/09/17 Rx INSULIN LISPRO (HumaLOG) [HumaLOG] 5 units SQ ACHS 12/09/17 12/09/17 History Allergies Allergy/AdvReac Type Severity Reaction Status Date / Time Mushroom AdvReac Nausea & Verified 12/09/17 20:35 Vomiting shellfish derived [Shellfish] AdvReac Nausea & Verified 12/09/17 20:35 Vomiting Physical Exam Vitals: Vital Signs Temp Pulse Pulse Resp BP BP BP 12/10/17 16:32 96 196/97 12/10/17 15:00 98.7 F 84 16 196/121 12/10/17 13:26 80 189/111 12/10/17 12:05 160/100 12/10/17 12:01 88 194/110 12/10/17 11:15 86 194/124 12/10/17 10:45 190/120 12/10/17 10:41 73 211/120 12/10/17 08:53 184/120 12/10/17 08:50 97.2 F L 67 20 197/120 12/10/17 08:00 20 12/09/17 23:46 98.0 F 62 17 154/110 12/09/17 23:17 68 18 148/92 12/09/17 22:00 68 18 154/99 12/09/17 19:40 97.6 F 74 18 165/95 Pulse Ox 12/10/17 16:32 12/10/17 15:00 98 12/10/17 13:26 12/10/17 12:05 12/10/17 12:01 99 12/10/17 11:15 100 12/10/17 10:45 12/10/17 10:41 12/10/17 08:53 12/10/17 08:50 99 12/10/17 08:00 12/09/17 23:46 99 12/09/17 23:17 97 12/09/17 22:00 98 12/09/17 19:40 98 Intake and Output 12/10/17 12/10/17 12/10/17 06:59 14:59 22:59 Output Total 600 Balance -600 Output: Urine 600 Other: Voiding Method Toilet Urinal Urinal Urinal # Voids 3 3 Weight 83.915 kg PHYSICAL EXAMINATION: Patient is lying in the bed comfortably, no acute distress, awake alert and oriented.. HEENT: Normocephalic. Neck is supple. Pupils reactive. Nostrils clear. Oral cavity is moist. Ears reveal no drainage. Neck reveals no JVD, carotid bruits, or thyromegaly. CHEST EXAMINATION: Trachea is central. Symmetrical expansion. Lung gunter clear to auscultation and percussion. CARDIAC: Normal S1, S2 with no gallops. No murmurs ABDOMEN: Soft. Mild epigastric tenderness. Bowel sounds normal. No organomegaly. No abdominal bruits. Extremities: reveal no edema. No clubbing or cyanosis Neurologically awake, alert, oriented x3 with well-coordinated movements. No focal deficits noted Skin: No rash or skin lesions. Psychiatric: Cooperative. Nonsuicidal Musculoskeletal: No joint swelling or deformity. Normal range of motion. Results CBC & Chem 7: 12/11/17 10:01 12/11/17 10:01 Labs: Abnormal Lab Results - Last 24 Hours (Table) 12/09/17 12/09/17 12/09/17 Range/Units 20:04 20:04 20:16 WBC 13.8 H (3.8-10.6) k/uL Neutrophils # 10.6 H (1.3-7.7) k/uL Carbon Dioxide (22-30) mmol/L Glucose 182 H (74-99) mg/dL POC Glucose (mg/dL) (75-99) mg/dL ALT 20 L (21-72) U/L Amylase 127 H (30-110) U/L Lipase 1013 H (23-300) U/L Ur Specific [place] 1.041 H (1.001-1.035) Urine Protein 2+ H (Negative) Urine Glucose (UA) 4+ H (Negative) Urine Ketones 1+ H (Negative) Urine Bacteria Rare H (None) /hpf Hyaline Casts 5 H (0-2) /lpf Urine Mucus Few H (None) /hpf Urine Opiates Screen Detected H (NotDetected) U Tricyclic Antidepress Detected H (NotDetected) U Methamphetamines Scrn Detected H (NotDetected) Urine Cocaine Screen Detected H (NotDetected) U Marijuana (THC) Screen Detected H (NotDetected) 12/10/17 12/10/17 12/10/17 Range/Units 00:14 06:51 06:51 WBC 15.9 H (3.8-10.6) k/uL Neutrophils # 12.4 H (1.3-7.7) k/uL Carbon Dioxide 20 L (22-30) mmol/L Glucose 139 H (74-99) mg/dL POC Glucose (mg/dL) 121 H (75-99) mg/dL ALT (21-72) U/L Amylase 145 H (30-110) U/L Lipase 595 H (23-300) U/L Ur Specific [place] (1.001-1.035) Urine Protein (Negative) Urine Glucose (UA) (Negative) Urine Ketones (Negative) Urine Bacteria (None) /hpf Hyaline Casts (0-2) /lpf Urine Mucus (None) /hpf Urine Opiates Screen (NotDetected) U Tricyclic Antidepress (NotDetected) U Methamphetamines Scrn (NotDetected) Urine Cocaine Screen (NotDetected) U Marijuana (THC) Screen (NotDetected) 12/10/17 12/10/17 12/10/17 Range/Units 06:54 10:58 10:58 WBC 12.6 H (3.8-10.6) k/uL Neutrophils # (1.3-7.7) k/uL Carbon Dioxide 18 L (22-30) mmol/L Glucose 146 H (74-99) mg/dL POC Glucose (mg/dL) 141 H (75-99) mg/dL ALT (21-72) U/L Amylase (30-110) U/L Lipase (23-300) U/L Ur Specific [place] (1.001-1.035) Urine Protein (Negative) Urine Glucose (UA) (Negative) Urine Ketones (Negative) Urine Bacteria (None) /hpf Hyaline Casts (0-2) /lpf Urine Mucus (None) /hpf Urine Opiates Screen (NotDetected) U Tricyclic Antidepress (NotDetected) U Methamphetamines Scrn (NotDetected) Urine Cocaine Screen (NotDetected) U Marijuana (THC) Screen (NotDetected) 12/10/17 12/10/17 Range/Units 11:48 16:55 WBC (3.8-10.6) k/uL Neutrophils # (1.3-7.7) k/uL Carbon Dioxide (22-30) mmol/L Glucose (74-99) mg/dL POC Glucose (mg/dL) 150 H 173 H (75-99) mg/dL ALT (21-72) U/L Amylase (30-110) U/L Lipase (23-300) U/L Ur Specific [place] (1.001-1.035) Urine Protein (Negative) Urine Glucose (UA) (Negative) Urine Ketones (Negative) Urine Bacteria (None) /hpf Hyaline Casts (0-2) /lpf Urine Mucus (None) /hpf Urine Opiates Screen (NotDetected) U Tricyclic Antidepress (NotDetected) U Methamphetamines Scrn (NotDetected) Urine Cocaine Screen (NotDetected) U Marijuana (THC) Screen (NotDetected) Thrombosis Risk Factor Assmnt - DVT/VTE Prophylaxis DVT/VTE Prophylaxis: Pharmacologic Prophylaxis ordered Assessment and Plan Assessment: Acute alcohol-induced pancreatitis Nausea vomiting or abdominal pain History of previous pancreatic disease [place] Uncontrolled hypertension due to pain Diabetes type 2 insulin-dependent Coronary artery disease with history of stent placement DVT prophylaxis Plan: Patient be continued on pain medications in the form of IV morphine and IV fluids and monitor closely. Will hold oral antihypertensives and patient was started on Catapres patch and hydralazine IV 10 mg every 6 hourly when necessary. Continue to follow closely. Monitor repeat labs in further recommendations based on the clinical course. Patient was counseled extensively for alcohol cessation. Time with Patient: Greater than 30
[2017-12-11] MEDS ORDERED: cloNIDine HCL 0.1 MG TAB PO PRN (18:07)
[2017-12-11 20:42] LABS: Glucose,Whole Blood 117 mg/dL (75-99)
[2017-12-11] MEDS: ATORVASTATIN 80 MG TAB PO SCH (21:05)
[2017-12-11] MEDS: LISINOPRIL 20 MG TAB PO SCH (21:06)
[2017-12-11] MEDS: METOPROLOL TARTRATE 50 MG TAB PO SCH (21:06)
[2017-12-11] MEDS: hydrALAZINE HCL 50 MG TAB PO SCH (21:06)
[2017-12-11 21:28] LABS: Hemoglobin A1C 8.2 % (4.0-6.0)
[2017-12-11] MEDS ORDERED: cloNIDine HCL 0.1 MG TAB PO SCH (22:00)
[2017-12-12] MEDS: MORPHINE SULFATE 4 MG/ML SYRINGE IV PRN ×7 (01:52→23:38)
[2017-12-12 06:30] LABS: Glucose,Whole Blood 287 mg/dL (75-99)
[2017-12-12] MEDS: SODIUM CHLORIDE 0.9% 1,000 ML IV SCH ×4 (07:13→20:27)
[2017-12-12] MEDS: INSULIN ASPART 100 UNIT/ML 1 ML 10 ML VIAL SQ SCH ×4 (09:05→20:34)
[2017-12-12] MEDS: hydrALAZINE HCL 50 MG TAB PO SCH ×3 (09:07→20:29)
[2017-12-12] MEDS: LISINOPRIL 20 MG TAB PO SCH ×2 (09:07→20:29)
[2017-12-12] MEDS: METOPROLOL TARTRATE 50 MG TAB PO SCH ×2 (09:07→20:29)
[2017-12-12] MEDS: ASPIRIN 81 MG PO SCH (09:07)
[2017-12-12] MEDS: NICOTINE 7MG/24HR PATCH TRANSDERM SCH (09:08)
[2017-12-12] MEDS: hydrALAZINE HCL 20 MG/ML 1 ML VIAL IVP PRN (10:29)
[2017-12-12 11:17] LABS: Glucose,Whole Blood 102 mg/dL (75-99)
[2017-12-12 13:04] LABS: Anion Gap 14 mmol/L; Basophils % (A) 0 %; Blood Urea Nitrogen 5 mg/dL (9-20); Calcium 9.5 mg/dL (8.4-10.2); Carbon Dioxide 24 mmol/L (22-30); Chloride 100 mmol/L (98-107); Eosinophils # (A) 0.1 k/uL (0-0.7); Eosinophils % (A) 1 %; Glucose 116 mg/dL (74-99); HGB 14.8 gm/dL (13.0-17.5); Lymphocytes # (A) 1.3 k/uL (1.0-4.8); Lymphocytes % (A) 12 %; MCH 30.8 pg (25.0-35.0); MCHC 34.5 g/dL (31.0-37.0); MCV 89.2 fL (80.0-100.0); Mean Platelet Volume 7.8; Monocytes # (A) 0.5 k/uL (0-1.0); Monocytes % (A) 4 %; Neutrophils # (A) 9.2 k/uL (1.3-7.7); Neutrophils % (A) 82 %; Platelet Count 219 k/uL (150-450); Potassium 3.8 mmol/L (3.5-5.1); RBC 4.82 m/uL (4.30-5.90); RDW 12.9 % (11.5-15.5); Sodium 138 mmol/L (137-145); WBC 11.2 k/uL (3.8-10.6)
--- NOTE | 2017-12-12 14:59 | P.PN ---
Subjective Progress Note Date: 12/11/17 Principal diagnosis: Acute alcoholic pancreatitis 37-year-old male patient with past medical history significant for hypertension , diabetes type 2, coronary artery disease with history of stent placement and alcohol-induced pancreatitis presents to the emergency department today for evaluation of upper abdominal pain and vomiting. States that 4 days ago he developed symptoms of intense upper abdominal pain that radiates into his back. States that he vomited for 2 days and was unable to keep anything down. He states that today the pain became so severe he couldn't wait any longer. He denies any constipation or diarrhea. Denies any fevers or chills with this. He reports his last drink of alcohol was 4 days ago. He does binge drinking. Patient denies any recent rash, shortness breath, chest pain, numbness, tingling , dizziness, weakness, hematuria, dysuria, urinary urgency, urinary frequency, headache, visual changes, or any other complaints. Patient states that his last episode of pancreatitis was in October. States he did stop drinking at that time however did have a recurrence of alcohol consumption. \ KUB x-ray showed no acute abdomen Lipase 595 amylase 125 12/11/2017 Patient is improving clinically. Pain is 8-10. No nausea vomiting. Abdominal pain is improving. No fever no chills Leukocytosis improved as well. Patient will be started on clear liquids was pain is better and able to tolerate. No fever no chills. Patient be started on insulin sliding scale and Lantus once tolerates diet. Otherwise blood pressure is still elevated likely due to pain. All other review of systems negative for the above Current medications reviewed. Objective - Vital Signs Vital signs: Vital Signs Temp 98.8 F 12/11/17 15:00 Pulse 98 12/11/17 16:02 Resp 16 12/11/17 15:00 BP 160/98 12/11/17 16:03 Pulse Ox 97 12/11/17 15:00 Intake & Output 12/10/17 12/11/17 12/11/17 17:59 06:59 18:59 Intake Total Output Total Balance Intake: Intake, IV Titration Amount Sodium Chloride 0.9% 1, 000 ml @ 150 mls/hr IV . Q6H40M [facility] Rx#:[id number] Oral Output: Urine Other: Voiding Method Toilet Urinal # Voids 2 # Bowel Movements - Exam PHYSICAL EXAMINATION: Patient is lying in the bed comfortably, no acute distress, awake alert and oriented.. HEENT: Normocephalic. Neck is supple. Pupils reactive. Nostrils clear. Oral cavity is moist. Ears reveal no drainage. Neck reveals no JVD, carotid bruits, or thyromegaly. CHEST EXAMINATION: Trachea is central. Symmetrical expansion. Lung gunter clear to auscultation and percussion. CARDIAC: Normal S1, S2 with no gallops. No murmurs ABDOMEN: Soft. Mild epigastric tenderness. Bowel sounds normal. No organomegaly. No abdominal bruits. Extremities: reveal no edema. No clubbing or cyanosis Neurologically awake, alert, oriented x3 with well-coordinated movements. No focal deficits noted Skin: No rash or skin lesions. Psychiatric: Coperative. Nonsuicidal Musculoskeletal: No joint swelling or deformity. Normal range of motion. - Labs CBC & Chem 7: 12/12/17 12:22 12/12/17 12:22 Labs: Abnormal Lab Results - Last 24 Hours (Table) 12/10/17 12/10/17 12/11/17 Range/Units 16:55 19:52 06:38 WBC (3.8-10.6) k/uL Neutrophils # (1.3-7.7) k/uL Sodium (137-145) mmol/L Carbon Dioxide (22-30) mmol/L BUN (9-20) mg/dL Glucose (74-99) mg/dL POC Glucose (mg/dL) 173 H 168 H 210 H (75-99) mg/dL Calcium (8.4-10.2) mg/dL 12/11/17 12/11/17 12/11/17 Range/Units 10:01 10:01 11:46 WBC 12.0 H (3.8-10.6) k/uL Neutrophils # 9.4 H (1.3-7.7) k/uL Sodium 136 L (137-145) mmol/L Carbon Dioxide 20 L (22-30) mmol/L BUN 7 L (9-20) mg/dL Glucose 244 H (74-99) mg/dL POC Glucose (mg/dL) 230 H (75-99) mg/dL Calcium 10.3 H (8.4-10.2) mg/dL 12/11/17 Range/Units 16:33 WBC (3.8-10.6) k/uL Neutrophils # (1.3-7.7) k/uL Sodium (137-145) mmol/L Carbon Dioxide (22-30) mmol/L BUN (9-20) mg/dL Glucose (74-99) mg/dL POC Glucose (mg/dL) 261 H (75-99) mg/dL Calcium (8.4-10.2) mg/dL Assessment and Plan Assessment: Acute alcohol-induced pancreatitis Nausea vomiting or abdominal pain. Improving History of previous pancreatic disease Pina Uncontrolled hypertension due to pain Diabetes type 2 insulin-dependent Coronary artery disease with history of stent placement Leukocytosis improved DVT prophylaxis Plan: Patient be continued on pain medications in the form of IV morphine and IV fluids and monitor closely. Will hold oral antihypertensives and patient was started on Catapres patch and hydralazine IV 10 mg every 6 hourly when necessary. Insulin sliding scale. Continue to follow closely. Monitor repeat labs in further recommendations based on the clinical course. Patient was counseled extensively for alcohol cessation. Time with Patient: Greater than 30
[2017-12-12 17:21] LABS: Glucose,Whole Blood 231 mg/dL (75-99)
[2017-12-12] MEDS: ATORVASTATIN 80 MG TAB PO SCH (20:29)
[2017-12-12 20:36] LABS: Glucose,Whole Blood 119 mg/dL (75-99)
--- NOTE | 2017-12-12 22:39 | P.PN ---
Subjective Progress Note Date: 12/12/17 Principal diagnosis: Acute alcoholic pancreatitis 37-year-old male patient with past medical history significant for hypertension , diabetes type 2, coronary artery disease with history of stent placement and alcohol-induced pancreatitis presents to the emergency department today for evaluation of upper abdominal pain and vomiting. States that 4 days ago he developed symptoms of intense upper abdominal pain that radiates into his back. States that he vomited for 2 days and was unable to keep anything down. He states that today the pain became so severe he couldn't wait any longer. He denies any constipation or diarrhea. Denies any fevers or chills with this. He reports his last drink of alcohol was 4 days ago. He does binge drinking. Patient denies any recent rash, shortness breath, chest pain, numbness, tingling , dizziness, weakness, hematuria, dysuria, urinary urgency, urinary frequency, headache, visual changes, or any other complaints. Patient states that his last episode of pancreatitis was in October. States he did stop drinking at that time however did have a recurrence of alcohol consumption. \ KUB x-ray showed no acute abdomen Lipase 595 amylase 125 12/11/2017 Patient is improving clinically. Pain is 8-10. No nausea vomiting. Abdominal pain is improving. No fever no chills Leukocytosis improved as well. Patient will be started on clear liquids was pain is better and able to tolerate. No fever no chills. Patient be started on insulin sliding scale and Lantus once tolerates diet. Otherwise blood pressure is still elevated likely due to pain. 12/12/2017 Patient did improve symptomatically with improved abdominal pain. Leukocytosis improved. Otherwise patient will be started on clear liquid diet and advance as tolerated. Patient will be started back on his insulin regimen as per home dose. No fever no chills. No nausea vomiting. No chest pain or shortness of breath. All other review of systems negative for the above Current medications reviewed. Objective - Vital Signs Vital signs: Vital Signs Temp 98 F 12/12/17 15:00 Pulse 79 12/12/17 15:00 Resp 16 12/12/17 15:00 BP 157/98 12/12/17 15:00 Pulse Ox 98 12/12/17 15:00 Intake & Output 12/12/17 12/12/17 12/13/17 06:59 18:59 06:59 Intake Total 1590 1200 700 Output Total 180 550 Balance 1590 1020 150 Intake: IV 1200 450 Sodium Chloride 0.9% 1, 1200 450 000 ml @ 150 mls/hr IV . Q6H40M [facility] Rx#:[id number] Intake, IV Titration 1000 Amount Sodium Chloride 0.9% 1, 1000 000 ml @ 150 mls/hr IV . Q6H40M [facility] Rx#:[id number] Oral 590 250 Output: Urine 180 550 Other: Voiding Method Toilet Toilet Urinal Urinal # Voids 5 2 - Exam PHYSICAL EXAMINATION: Patient is lying in the bed comfortably, no acute distress, awake alert and oriented.. HEENT: Normocephalic. Neck is supple. Pupils reactive. Nostrils clear. Oral cavity is moist. Ears reveal no drainage. Neck reveals no JVD, carotid bruits, or thyromegaly. CHEST EXAMINATION: Trachea is central. Symmetrical expansion. Lung gunter clear to auscultation and percussion. CARDIAC: Normal S1, S2 with no gallops. No murmurs ABDOMEN: Soft. Mild epigastric tenderness. Bowel sounds normal. No organomegaly. No abdominal bruits. Extremities: reveal no edema. No clubbing or cyanosis Neurologically awake, alert, oriented x3 with well-coordinated movements. No focal deficits noted Skin: No rash or skin lesions. Psychiatric: Coperative. Nonsuicidal Musculoskeletal: No joint swelling or deformity. Normal range of motion. - Labs CBC & Chem 7: 12/12/17 12:22 12/12/17 12:22 Labs: Abnormal Lab Results - Last 24 Hours (Table) 12/11/17 12/12/17 12/12/17 Range/Units 10:01 06:25 11:15 WBC (3.8-10.6) k/uL Neutrophils # (1.3-7.7) k/uL BUN (9-20) mg/dL Glucose (74-99) mg/dL POC Glucose (mg/dL) 287 H 102 H (75-99) mg/dL Hemoglobin A1c 8.2 H (4.0-6.0) % 12/12/17 12/12/17 12/12/17 Range/Units 12:22 12:22 16:59 WBC 11.2 H (3.8-10.6) k/uL Neutrophils # 9.2 H (1.3-7.7) k/uL BUN 5 L (9-20) mg/dL Glucose 116 H (74-99) mg/dL POC Glucose (mg/dL) 231 H (75-99) mg/dL Hemoglobin A1c (4.0-6.0) % 12/12/17 Range/Units 20:34 WBC (3.8-10.6) k/uL Neutrophils # (1.3-7.7) k/uL BUN (9-20) mg/dL Glucose (74-99) mg/dL POC Glucose (mg/dL) 119 H (75-99) mg/dL Hemoglobin A1c (4.0-6.0) % Assessment and Plan Assessment: Acute alcohol-induced pancreatitis . did improve clinically Nausea vomiting or abdominal pain. Improving History of previous pancreatic disease Pina Uncontrolled hypertension due to pain Diabetes type 2 insulin-dependent Coronary artery disease with history of stent placement Leukocytosis improved DVT prophylaxis Plan: Patient be continued on pain medications in the form of IV morphine and IV fluids and monitor closely. Did hold oral antihypertensives and patient was started on Catapres patch and hydralazine IV 10 mg every 6 hourly when necessary. Patient will be started back on his home blood pressure medications. Insulin sliding scale. Continue to follow closely. Monitor repeat labs in further recommendations based on the clinical course. Patient was counseled extensively for alcohol cessation. Time with Patient: Greater than 30
[2017-12-13] MEDS: MORPHINE SULFATE 4 MG/ML SYRINGE IV PRN ×4 (03:29→14:04)
[2017-12-13] MEDS: SODIUM CHLORIDE 0.9% 1,000 ML IV SCH (06:20)
[2017-12-13 07:45] LABS: Glucose,Whole Blood 137 mg/dL (75-99)
[2017-12-13] MEDS: INSULIN ASPART 100 UNIT/ML 1 ML 10 ML VIAL SQ SCH ×4 (07:55→21:12)
[2017-12-13] MEDS: LISINOPRIL 20 MG TAB PO SCH ×2 (07:56→21:14)
[2017-12-13] MEDS: METOPROLOL TARTRATE 50 MG TAB PO SCH ×2 (07:57→21:14)
[2017-12-13] MEDS: hydrALAZINE HCL 50 MG TAB PO SCH ×3 (07:57→21:14)
[2017-12-13] MEDS: NICOTINE 7MG/24HR PATCH TRANSDERM SCH (07:57)
[2017-12-13] MEDS: ASPIRIN 81 MG PO SCH (07:57)
[2017-12-13] MEDS ORDERED: HYDROCHLOROTHIAZIDE 12.5 MG CAP PO SCH (11:15)
[2017-12-13 11:30] LABS: Glucose,Whole Blood 250 mg/dL (75-99)
[2017-12-13] MEDS ORDERED: HYDROCHLOROTHIAZIDE 25 MG TAB PO SCH (11:30)
[2017-12-13 16:51] LABS: Glucose,Whole Blood 173 mg/dL (75-99)
[2017-12-13] MEDS: MORPHINE ORAL SOLN 10 MG/5 ML CUP PO PRN ×2 (17:15→21:12)
[2017-12-13 20:22] LABS: Glucose,Whole Blood 172 mg/dL (75-99)
[2017-12-13] MEDS: ATORVASTATIN 80 MG TAB PO SCH (21:14)
[2017-12-13 23:50] VITALS: BP 147/97; PULSE 66; TEMP 98.2
[2017-12-14] MEDS: MORPHINE ORAL SOLN 10 MG/5 ML CUP PO PRN (04:21)
--- NOTE | 2017-12-14 23:28 | P.PN ---
Subjective Progress Note Date: 12/13/17 Principal diagnosis: Acute alcoholic pancreatitis 37-year-old male patient with past medical history significant for hypertension , diabetes type 2, coronary artery disease with history of stent placement and alcohol-induced pancreatitis presents to the emergency department today for evaluation of upper abdominal pain and vomiting. States that 4 days ago he developed symptoms of intense upper abdominal pain that radiates into his back. States that he vomited for 2 days and was unable to keep anything down. He states that today the pain became so severe he couldn't wait any longer. He denies any constipation or diarrhea. Denies any fevers or chills with this. He reports his last drink of alcohol was 4 days ago. He does binge drinking. Patient denies any recent rash, shortness breath, chest pain, numbness, tingling , dizziness, weakness, hematuria, dysuria, urinary urgency, urinary frequency, headache, visual changes, or any other complaints. Patient states that his last episode of pancreatitis was in October. States he did stop drinking at that time however did have a recurrence of alcohol consumption. \ KUB x-ray showed no acute abdomen Lipase 595 amylase 125 12/11/2017 Patient is improving clinically. Pain is 8-10. No nausea vomiting. Abdominal pain is improving. No fever no chills Leukocytosis improved as well. Patient will be started on clear liquids was pain is better and able to tolerate. No fever no chills. Patient be started on insulin sliding scale and Lantus once tolerates diet. Otherwise blood pressure is still elevated likely due to pain. 12/12/2017 Patient did improve symptomatically with improved abdominal pain. Leukocytosis improved. Otherwise patient will be started on clear liquid diet and advance as tolerated. Patient will be started back on his insulin regimen as per home dose. No fever no chills. No nausea vomiting. No chest pain or shortness of breath. 12/13/2017 Patient is improving with improved abdominal pain. Otherwise blood pressure is still elevated patient was started back on his oral blood pressure medications and insulin regimen. Patient will be started on clear liquids and advance as tolerated. Anticipate discharge in next 1-2 days. All other review of systems negative for the above Current medications reviewed. Objective - Vital Signs Vital signs: Vital Signs Temp 98.3 F 12/13/17 15:00 Pulse 83 12/13/17 15:00 Resp 16 12/13/17 15:00 BP 168/98 12/13/17 12:59 Pulse Ox 98 12/13/17 15:00 Intake & Output 12/13/17 12/13/17 12/14/17 06:59 18:59 06:59 Intake Total 1950 1020 Output Total 1850 Balance 100 1020 Weight 83.915 kg Intake: IV 1350 300 Sodium Chloride 0.9% 1, 1350 300 000 ml @ 75 mls/hr IV . [id number] [facility] Rx#:[id number] Oral 600 720 Output: Urine 1850 Other: Voiding Method Toilet Urinal # Voids 3 - Exam PHYSICAL EXAMINATION: Patient is lying in the bed comfortably, no acute distress, awake alert and oriented.. HEENT: Normocephalic. Neck is supple. Pupils reactive. Nostrils clear. Oral cavity is moist. Ears reveal no drainage. Neck reveals no JVD, carotid bruits, or thyromegaly. CHEST EXAMINATION: Trachea is central. Symmetrical expansion. Lung gunter clear to auscultation and percussion. CARDIAC: Normal S1, S2 with no gallops. No murmurs ABDOMEN: Soft. Mild epigastric tenderness. Bowel sounds normal. No organomegaly. No abdominal bruits. Extremities: reveal no edema. No clubbing or cyanosis Neurologically awake, alert, oriented x3 with well-coordinated movements. No focal deficits noted Skin: No rash or skin lesions. Psychiatric: Coperative. Nonsuicidal Musculoskeletal: No joint swelling or deformity. Normal range of motion. - Labs CBC & Chem 7: 12/12/17 12:22 12/12/17 12:22 Labs: Abnormal Lab Results - Last 24 Hours (Table) 12/12/17 12/13/17 12/13/17 Range/Units 20:34 07:44 11:28 POC Glucose (mg/dL) 119 H 137 H 250 H (75-99) mg/dL 12/13/17 Range/Units 16:50 POC Glucose (mg/dL) 173 H (75-99) mg/dL Assessment and Plan Assessment: Acute alcohol-induced pancreatitis . did improve clinically Nausea vomiting or abdominal pain. Improving History of previous pancreatic disease Pina Uncontrolled hypertension due to pain Diabetes type 2 insulin-dependent Coronary artery disease with history of stent placement Leukocytosis improved DVT prophylaxis Plan: Patient be continued on pain medications in the form of IV morphine and IV fluids and monitor closely. Did hold oral antihypertensives and patient was started on Catapres patch and hydralazine IV 10 mg every 6 hourly when necessary. Patient was started back on his home blood pressure medications. Insulin sliding scale. Continue to follow closely. Monitor repeat labs in further recommendations based on the clinical course. Patient was counseled extensively for alcohol cessation. Time with Patient: Greater than 30
--- NOTE | 2017-12-14 23:30 | P.DS ---
Providers Date of admission: 12/09/17 22:50 Expected date of discharge: 12/14/17 Attending physician: Elmer Deleon MD Primary care physician: Stated None Hospital Course: Discharge diagnosis Acute alcohol-induced pancreatitis . did improve clinically Nausea vomiting or abdominal pain. Improving History of previous pancreatic disease October Uncontrolled hypertension due to pain Diabetes type 2 insulin-dependent Coronary artery disease with history of stent placement Leukocytosis improved DVT prophylaxis Hospital course 37-year-old male patient with past medical history significant for hypertension , diabetes type 2, coronary artery disease with history of stent placement and alcohol-induced pancreatitis presents to the emergency department today for evaluation of upper abdominal pain and vomiting. States that 4 days ago he developed symptoms of intense upper abdominal pain that radiates into his back. States that he vomited for 2 days and was unable to keep anything down. He states that today the pain became so severe he couldn't wait any longer. He denies any constipation or diarrhea. Denies any fevers or chills with this. He reports his last drink of alcohol was 4 days ago. He does binge drinking. Patient denies any recent rash, shortness breath, chest pain, numbness, tingling , dizziness, weakness, hematuria, dysuria, urinary urgency, urinary frequency, headache, visual changes, or any other complaints. Patient states that his last episode of pancreatitis was in October. States he did stop drinking at that time however did have a recurrence of alcohol consumption. \ KUB x-ray showed no acute abdomen Lipase 595 amylase 125 12/11/2017 Patient is improving clinically. Pain is 8-10. No nausea vomiting. Abdominal pain is improving. No fever no chills Leukocytosis improved as well. Patient will be started on clear liquids was pain is better and able to tolerate. No fever no chills. Patient be started on insulin sliding scale and Lantus once tolerates diet. Otherwise blood pressure is still elevated likely due to pain. 12/12/2017 Patient did improve symptomatically with improved abdominal pain. Leukocytosis improved. Otherwise patient will be started on clear liquid diet and advance as tolerated. Patient will be started back on his insulin regimen as per home dose. No fever no chills. No nausea vomiting. No chest pain or shortness of breath. 12/13/2017 Patient is improving with improved abdominal pain. Otherwise blood pressure is still elevated patient was started back on his oral blood pressure medications and insulin regimen. Patient will be started on clear liquids and advance as tolerated. Patient was continued on pain medications in the form of IV morphine and IV fluids and monitor closely. Did hold oral antihypertensives and patient was started on Catapres patch and hydralazine IV 10 mg every 6 hourly when necessary. Patient was started back on his home blood pressure medications. Insulin sliding scale. Continued to follow closely. Patient was counseled extensively for alcohol cessation. Patient left AGAINST MEDICAL ADVICE is morning. Patient Condition at Discharge: Fair Plan - Discharge Summary New Discharge Prescriptions: No Action Aspirin EC [Ecotrin Low Dose] 81 mg PO DAILY #30 tablet. Atorvastatin [Lipitor] 80 mg PO HS Lisinopril [Zestril] 20 mg PO BID #60 tab hydrALAZINE HCL [Apresoline] 50 mg PO TID #90 tab cloNIDine HCL [Catapres] 0.1 mg PO TID #90 tab Insulin Glargine,Hum.rec.anlog [Basaglar Kwikpen U-100] 22 unit SQ HS #1 syr Metoprolol Tartrate [Lopressor] 50 mg PO BID #60 tab INSULIN LISPRO (HumaLOG) [HumaLOG] 5 units SQ ACHS Discharge Medication List Aspirin EC [Ecotrin Low Dose] 81 mg PO DAILY #30 tablet. 02/11/17 [Rx] Atorvastatin [Lipitor] 80 mg PO HS 09/27/17 [History] Insulin Glargine,Hum.rec.anlog [Basaglar Kwikpen U-100] 22 unit SQ HS #1 syr 11/20 [Rx] Lisinopril [Zestril] 20 mg PO BID #60 tab 10/04/17 [Rx] Metoprolol Tartrate [Lopressor] 50 mg PO BID #60 tab 10/04/17 [Rx] cloNIDine HCL [Catapres] 0.1 mg PO TID #90 tab 10/04/17 [Rx] hydrALAZINE HCL [Apresoline] 50 mg PO TID #90 tab 10/04/17 [Rx] INSULIN LISPRO (HumaLOG) [HumaLOG] 5 units SQ ACHS 12/09/17 [History] Follow up Appointment(s)/Referral(s): None,Stated [Primary Care Provider] - 1-2 days Discharge Disposition: Left Against Medical Advice
== END 2017-12-14 06:19 | disposition left against medical advice (07) | DRG 440 ==
LOC: EC 19:37 → 3SUR 22:50 → 5MS5E 12-12 14:32
PROVIDERS: ADMIT Internal Medicine; ATTEND Internal Medicine
DX: K85.20 Alcohol induced acute pancreatitis without necrosis or infection (principal); E11.9 Type 2 diabetes mellitus without complications; E78.5 Hyperlipidemia, unspecified; F17.200 Nicotine dependence, unspecified, uncomplicated; F32.9 Major depressive disorder, single episode, unspecified; F41.9 Anxiety disorder, unspecified; I10 Essential (primary) hypertension; I25.10 Atherosclerotic heart disease of native coronary artery without angina pectoris; I25.2 Old myocardial infarction; F10.10 Alcohol abuse, uncomplicated; Z79.4 Long term (current) use of insulin; Z79.899 Other long term (current) drug therapy; Z79.02 Long term (current) use of antithrombotics/antiplatelets; Z91.013 Allergy to seafood; Z91.018 Allergy to other foods; Z95.5 Presence of coronary angioplasty implant and graft; Z82.49 Family history of ischemic heart disease and other diseases of the circulatory system
CPT/HCPCS: 36415; 74018; 80048; 80053; 80306; 80320; 81001; 82009; 82150; 82550; 82553; 83036; 83690; 84484; 85025; 85027; 85610; 93005; 96361; 96374; 96376; 99285

== ENCOUNTER 2018-01-26 18:07 | Inpatient (IN) | payer OTHER ==
[2018-01-26] MEDS ORDERED: SODIUM CHLORIDE 0.9% 2,000 ML IV STA (18:17)
--- NOTE | 2018-01-26 18:35 | ED ---
General Adult HPI - General Chief complaint: Abdominal Pain Stated complaint: ABD Pain Time Seen by Provider: 01/26/18 18:17 Source: patient, EMS, RN notes reviewed, old records reviewed Mode of arrival: EMS Limitations: no limitations - History of Present Illness Initial comments: Chief complaint and history of present illness is a 29-year-old male called the ambulance goes epigastric pain for the past 2 days. The patient has a history of chronic pancreatitis exacerbated by alcohol. He states he last drank alcohol last week. Patient complains of nausea vomiting but no diarrhea. No blood in the vomit. - Related Data Home Medications Medication Instructions Recorded Confirmed Atorvastatin [Lipitor] 80 mg PO HS 09/27/17 01/26/18 INSULIN LISPRO (HumaLOG) [HumaLOG] 5 units SQ ACHS 12/09/17 01/26/18 Previous Rx's Medication Instructions Recorded Aspirin EC [Ecotrin Low Dose] 81 mg PO DAILY #30 tablet. 02/11/17 Insulin Glargine,Hum.rec.anlog 22 unit SQ HS #1 syr 10/04/17 [Basaglar Kwikpen U-100] Lisinopril [Zestril] 20 mg PO BID #60 tab 10/04/17 Metoprolol Tartrate [Lopressor] 50 mg PO BID #60 tab 10/04/17 cloNIDine HCL [Catapres] 0.1 mg PO TID #90 tab 10/04/17 hydrALAZINE HCL [Apresoline] 50 mg PO TID #90 tab 10/04/17 Allergies Allergy/AdvReac Type Severity Reaction Status Date / Time Mushroom AdvReac Nausea & Verified 01/26/18 18:40 Vomiting shellfish derived [Shellfish] AdvReac Nausea & Verified 01/26/18 18:40 Vomiting Review of Systems ROS Statement: Those systems with pertinent positive or pertinent negative responses have been documented in the HPI. Review of systems. No headache or visual acuity changes no chest pain or shortness of breath. He has epigastric pain that does not radiate to the back. Nausea and vomiting no diarrhea. Decreased appetite. Good upper and lower extremity movement no complaint of dizziness. All systems reviewed. Past medical problems significant for diabetes mellitus insulin-dependent, coronary artery disease. He had an VT at age of 32 at that time he had a cardiac catheterization with one stent placed also history of hyperlipidemia hypertension and chronic pancreatitis secondary to alcohol. The patient's surgeries right hand surgery for tendon repair, cardiac catheterization one stent placed 5 years ago. Patient reports no cancers in the family. He has ALLERGIES to mushrooms and shellfish derived. He does smoke strongly encouraged to stop. History of Alcohol abuse but not for the past several days. ROS Other: All systems not noted in ROS Statement are negative. Past Medical History Past Medical History: Coronary Artery Disease (CAD), Diabetes Mellitus, Hyperlipidemia, Hypertension, Myocardial Infarction (VT) Additional Past Medical History / Comment(s): pancreatitis/ETOH abuse. Other hx: Recent head injury with morris now removed. Last Myocardial Infarction Date:: 2011 History of Any Multi-Drug Resistant Organisms: None Reported Past Surgical History: Heart Catheterization With Stent Additional Past Surgical History / Comment(s): PCI with stent at [facility] [place].1997 had rt hand sx to repair nerve/tendons d/t injury. Past Anesthesia/Blood Transfusion Reactions: No Reported Reaction Date of Last Stent Placement:: 2011 Past Psychological History: Anxiety, Bipolar, Depression Smoking Status: Current every day smoker Past Alcohol Use History: Occasional Past Drug Use History: Marijuana - Past Family History Mother Family Medical History: CVA/TIA, Diabetes Mellitus, Hypertension Additional Family Medical History / Comment(s): Mother is still living. Father Family Medical History: CVA/TIA Additional Family Medical History / Comment(s): Father is still living. General Exam - General Exam Comments Initial Comments: General: The patient is awake and alert, complains of epigastric pain ongoing for 2 days associated with nausea and vomiting decreased appetite. Vital signs shows temperature 98.5 pulse 95 respiratory rate 18 pulse ox 99% room air blood pressure 170/120. This be repeated. Eye: Pupils are equal, round and reactive to light, extra-ocular movements are intact ; there is normal conjunctiva bilaterally. No signs of icterus. Ears, nose, mouth and throat: There are moist mucous membranes and no oral lesions. Neck: The neck is supple, there is no tenderness. Cardiovascular: There is a regular rate and rhythm. No murmur, rub or gallop is appreciated. Respiratory: Lungs are clear to auscultation, respirations are non-labored, breath sounds are equal. No wheezes, stridor, rales, or rhonchi. Gastrointestinal: Tender epigastric region with palpation. No rebound or referred pain. Active bowel sounds. Back: There is no tenderness to palpation in the midline. Musculoskeletal: Normal extremities, no complaint of numbness tingling. Neurological: No neuro deficits complained of, denies dizziness. Skin: Skin is warm and dry and no rashes or lesions are noted. Limitations: no limitations Course Vital Signs 01/26/18 18:14 Temperature 98.5 F Pulse Rate 97 Respiratory 18 Rate Blood Pressure 170/121 O2 Sat by Pulse 99 Oximetry EKG Findings - EKG Comments: EKG Findings:: EKG was done and reviewed at 1909 showing normal sinus rhythm rate 71, CT was 164 QRS 82 QT 418 QTc 454. No acute ST elevation. EKG shows possible T wave changes laterally, possible ischemic changes.. Nonspecific lateral changes. Dr. Johnson. This EKG was compared to one done on 02/10/2017 and they're very similar. Including the lateral changes. Dr. Johnson Medical Decision Making - Medical Decision Making Medical decision making; 29-year-old male here for complaint of epigastric pain. Patient reports she last drank alcohol 5 or 6 days ago. Past history significant for alcoholic pancreatitis, recurrent. Patient also has a history of heart disease, insulin-dependent diabetes mellitus and hypertension. Labs show white count 12 hemoglobin 17 hematocrit of 52 with a potassium 3.8. BUN 12 creatinine 0.77 GFR greater than 90. Glucose 229. Urine shows 4+ ketones 4+ glucose. Patient's amylase 129 lipase elevated 8 over 1. EtOH less than 0.01. Troponin 0.02. Acetone positive. While in emergency room the patient was hydrated with normal saline. Giving 4 units of insulin subcu which is normal dose at home. Patient will be admitted the hospital with diagnosis of diabetic ketoacidosis and acute on chronic pancreatitis. Patient be admitted to Dr. Villarreal, this patients are being covered by [facility]. - Lab Data Result diagrams: 01/26/18 18:19 01/26/18 18:19 Lab Results 01/26/18 01/26/18 01/26/18 Range/Units 18:19 18:19 18:19 WBC 12.0 H (3.8-10.6) k/uL RBC 5.86 (4.30-5.90) m/uL Hgb 17.2 (13.0-17.5) gm/dL Hct 52.0 (39.0-53.0) % MCV 88.7 (80.0-100.0) fL MCH 29.4 (25.0-35.0) pg MCHC 33.1 (31.0-37.0) g/dL RDW 12.8 (11.5-15.5) % Plt Count 249 (150-450) k/uL Neutrophils % 84 % Lymphocytes % 11 % Monocytes % 4 % Eosinophils % 1 % Basophils % 0 % Neutrophils # 10.0 H (1.3-7.7) k/uL Lymphocytes # 1.3 (1.0-4.8) k/uL Monocytes # 0.4 (0-1.0) k/uL Eosinophils # 0.1 (0-0.7) k/uL Basophils # 0.0 (0-0.2) k/uL Sodium 135 L (137-145) mmol/L Potassium 3.8 (3.5-5.1) mmol/L Chloride 99 (98-107) mmol/L Carbon Dioxide 17 L (22-30) mmol/L Anion Gap 19 mmol/L BUN 12 (9-20) mg/dL Creatinine 0.77 (0.66-1.25) mg/dL Est GFR (CKD-EPI)AfAm >90 (>60 ml/min/1.73 sqM) Est GFR (CKD-EPI)NonAf >90 (>60 ml/min/1.73 sqM) Glucose 229 H (74-99) mg/dL Calcium 9.9 (8.4-10.2) mg/dL Total Bilirubin 1.2 (0.2-1.3) mg/dL AST 94 H (17-59) U/L ALT 52 (21-72) U/L Alkaline Phosphatase 112 (38-126) U/L Troponin I 0.020 (0.000-0.034) ng/mL Total Protein 7.5 (6.3-8.2) g/dL Albumin 4.8 (3.5-5.0) g/dL Amylase 129 H (30-110) U/L Lipase 801 H (23-300) U/L Urine Color Urine Appearance (Clear) Urine pH (5.0-8.0) Ur Specific [place] (1.001-1.035) Urine Protein (Negative) Urine Glucose (UA) (Negative) Urine Ketones (Negative) Urine Blood (Negative) Urine Nitrite (Negative) Urine Bilirubin (Negative) Urine Urobilinogen (<2.0) mg/dL Ur Leukocyte Esterase (Negative) Urine RBC (0-5) /hpf Urine WBC (0-5) /hpf Hyaline Casts (0-2) /lpf Urine Mucus (None) /hpf Serum Alcohol <10 mg/dL Acetone, Qual (Negative) 01/26/18 01/26/18 Range/Units 18:19 18:49 WBC (3.8-10.6) k/uL RBC (4.30-5.90) m/uL Hgb (13.0-17.5) gm/dL Hct (39.0-53.0) % MCV (80.0-100.0) fL MCH (25.0-35.0) pg MCHC (31.0-37.0) g/dL RDW (11.5-15.5) % Plt Count (150-450) k/uL Neutrophils % % Lymphocytes % % Monocytes % % Eosinophils % % Basophils % % Neutrophils # (1.3-7.7) k/uL Lymphocytes # (1.0-4.8) k/uL Monocytes # (0-1.0) k/uL Eosinophils # (0-0.7) k/uL Basophils # (0-0.2) k/uL Sodium (137-145) mmol/L Potassium (3.5-5.1) mmol/L Chloride (98-107) mmol/L Carbon Dioxide (22-30) mmol/L Anion Gap mmol/L BUN (9-20) mg/dL Creatinine (0.66-1.25) mg/dL Est GFR (CKD-EPI)AfAm (>60 ml/min/1.73 sqM) Est GFR (CKD-EPI)NonAf (>60 ml/min/1.73 sqM) Glucose (74-99) mg/dL Calcium (8.4-10.2) mg/dL Total Bilirubin (0.2-1.3) mg/dL AST (17-59) U/L ALT (21-72) U/L Alkaline Phosphatase (38-126) U/L Troponin I (0.000-0.034) ng/mL Total Protein (6.3-8.2) g/dL Albumin (3.5-5.0) g/dL Amylase (30-110) U/L Lipase (23-300) U/L Urine Color Yellow Urine Appearance Clear (Clear) Urine pH 5.5 (5.0-8.0) Ur Specific [place] 1.049 H (1.001-1.035) Urine Protein 2+ H (Negative) Urine Glucose (UA) 4+ H (Negative) Urine Ketones 4+ H (Negative) Urine Blood Negative (Negative) Urine Nitrite Negative (Negative) Urine Bilirubin 1+ H (Negative) Urine Urobilinogen 3.0 (<2.0) mg/dL Ur Leukocyte Esterase Negative (Negative) Urine RBC <1 (0-5) /hpf Urine WBC 1 (0-5) /hpf Hyaline Casts 5 H (0-2) /lpf Urine Mucus Few H (None) /hpf Serum Alcohol mg/dL Acetone, Qual Positive (Negative) Disposition Clinical Impression: Acute on chronic pancreatitis, DKA (diabetic ketoacidosis) Disposition: ADMITTED IP TO THIS [facility] Condition: Fair Is patient prescribed a controlled substance at d/c from ED?: No When asked, does pt state using other controlled substances?: No Referrals: None,Stated [Primary Care Provider] - 1-2 days Time of Disposition: 20:22
[2018-01-26 18:53] LABS: ALT 52 U/L (21-72); AST 94 U/L (17-59); Albumin 4.8 g/dL (3.5-5.0); Alcohol <10 mg/dL; Alkaline Phosphatase 112 U/L (38-126); Amylase 129 U/L (30-110); Anion Gap 19 mmol/L; Blood Urea Nitrogen 12 mg/dL (9-20); Calcium 9.9 mg/dL (8.4-10.2); Carbon Dioxide 17 mmol/L (22-30); Chloride 99 mmol/L (98-107); Glucose 229 mg/dL (74-99); Lipase 801 U/L (23-300); Potassium 3.8 mmol/L (3.5-5.1); Sodium 135 mmol/L (137-145); Total Bilirubin 1.2 mg/dL (0.2-1.3); Total Protein 7.5 g/dL (6.3-8.2)
[2018-01-26 18:58] LABS: Basophils % (A) 0 %; Eosinophils # (A) 0.1 k/uL (0-0.7); Eosinophils % (A) 1 %; HGB 17.2 gm/dL (13.0-17.5); Lymphocytes # (A) 1.3 k/uL (1.0-4.8); Lymphocytes % (A) 11 %; MCH 29.4 pg (25.0-35.0); MCHC 33.1 g/dL (31.0-37.0); MCV 88.7 fL (80.0-100.0); Mean Platelet Volume 8.7; Monocytes # (A) 0.4 k/uL (0-1.0); Monocytes % (A) 4 %; Neutrophils % (A) 84 %; Platelet Count 249 k/uL (150-450); RBC 5.86 m/uL (4.30-5.90); RDW 12.8 % (11.5-15.5)
[2018-01-26 19:07] LABS: Appearance,Urine Clear (Clear); Bilirubin,Urine 1+ (Negative); Blood,Urine Negative (Negative); Color,Urine Yellow; Glucose,Urine (UA) 4+ (Negative); Hyaline Casts,Urine 5 /lpf (0-2); Leukocyte Esterase,Urine Negative (Negative); Mucus,Urine Few /hpf; Nitrite,Urine Negative (Negative); PH, Urine 5.5 (5.0-8.0); Protein,Urine 2+ (Negative); RBC,Urine <1 /hpf (0-5); Specific Gravity,Urine 1.049 (1.001-1.035); WBC,Urine 1 /hpf (0-5)
[2018-01-26 19:09] LABS: Ketones,Urine 4+ (Negative)
[2018-01-26] MEDS ORDERED: MORPHINE SULFATE 4 MG/0.8 ML SYRINGE (INJ) IVP STA ×2 (19:41→21:01)
--- NOTE | 2018-01-26 20:14 | XR ---
EXAMINATION TYPE: XR abdomen 2V DATE OF EXAM: 01/26/2018 COMPARISON: 12/09/2017 HISTORY: Abdominal pain TECHNIQUE: 3 views FINDINGS: There is no sign of intestinal obstruction or pneumoperitoneum. Fecal pattern is normal. Kylie ng bases are clear. There are no pathologic calcifications over the kidneys. There is no evidence of a mass. IMPRESSION: Nonacute abdomen. No change. No pancreatic calcifications seen.
[2018-01-26] MEDS ORDERED: SODIUM CHLORIDE 0.9% 2,000 ML IV ONE (20:15)
[2018-01-26] MEDS ORDERED: ONDANSETRON 4 MG/2 ML VIAL IVP PRN (20:23)
[2018-01-26] MEDS ORDERED: NALOXONE 0.4 MG/ML 1 ML VIAL IV PRN (20:23)
[2018-01-26] MEDS ORDERED: hydrALAZINE HCL 20 MG/ML 1 ML VIAL IVP STA (20:30)
[2018-01-26 20:38] LABS: Glucose,Whole Blood 160 mg/dL (75-99)
[2018-01-26] MEDS ORDERED: ENALAPRILAT 1.25 MG/ML 1 ML VIAL IVP STA (21:00)
[2018-01-26] MEDS: cloNIDine HCL 0.1 MG TAB PO SCH (21:29)
[2018-01-26] MEDS: PANTOPRAZOLE 40 MG/10 ML VIAL IV SCH (21:34)
[2018-01-26] MEDS: METOPROLOL TARTRATE 50 MG TAB PO SCH (23:30)
[2018-01-26] MEDS: LISINOPRIL 20 MG TAB PO SCH (23:30)
[2018-01-26] MEDS: ATORVASTATIN 80 MG TAB PO SCH (23:30)
[2018-01-27] MEDS: hydrALAZINE HCL 50 MG TAB PO SCH ×4 (00:56→20:42)
[2018-01-27 01:21] LABS: Creatine Kinase MB 1.3 ng/mL (0.0-2.4); Troponin I 0.013 ng/mL (0.000-0.034)
[2018-01-27] MEDS: MORPHINE SULFATE 4 MG/0.8 ML SYRINGE (INJ) IV PRN ×4 (01:22→21:19)
[2018-01-27] MEDS ORDERED: cloNIDine 0.2 MG/24HR PATCH 1 PATCH PATCH TRANSDERM SCH (02:00)
[2018-01-27 02:35] LABS: Hemoglobin A1C 8.9 % (4.0-6.0)
[2018-01-27] MEDS ORDERED: LORazepam 2 MG/ML INJ IV PRN ×2 (04:38→09:52)
[2018-01-27] MEDS: LORazepam 2 MG/ML INJ IV PRN ×5 (05:14→23:45)
[2018-01-27 06:16] LABS: Glucose,Whole Blood 153 mg/dL (75-99)
[2018-01-27] MEDS: INSULIN ASPART 100 UNIT/ML 1 ML 10 ML VIAL SQ SCH ×3 (06:54→16:54)
[2018-01-27 07:30] LABS: Creatine Kinase MB 1.3 ng/mL (0.0-2.4); Troponin I 0.018 ng/mL (0.000-0.034)
[2018-01-27] MEDS: cloNIDine HCL 0.1 MG TAB PO SCH ×2 (07:46→20:41)
[2018-01-27] MEDS: METOPROLOL TARTRATE 50 MG TAB PO SCH ×2 (08:03→20:41)
[2018-01-27] MEDS: NICOTINE 21MG/24HR PATCH TRANSDERM SCH (08:03)
[2018-01-27] MEDS: PANTOPRAZOLE 40 MG/10 ML VIAL IV SCH (08:03)
[2018-01-27] MEDS: LISINOPRIL 20 MG TAB PO SCH ×2 (08:04→20:42)
[2018-01-27] MEDS ORDERED: HALOPERIDOL LACTATE 5 MG/ML 1 ML VIAL IM PRN (09:40)
[2018-01-27] MEDS: 1: MVI, ADULT NO.4 WITH VIT K 10 ML, THIAMINE 100 MG, FOLIC ACID 1 MG in SODIUM CHLORIDE IV SCH ×8 (10:25→16:54)
[2018-01-27 11:52] LABS: Glucose,Whole Blood 166 mg/dL (75-99)
--- NOTE | 2018-01-27 13:17 | P.HPIM ---
History of Present Illness This is the first day I take care of the patient covering for Dr. Villarreal This is a pleasant 29-year-old -[place]in[place] male with past medical history of alcoholism and pancreatitis Patient looks confused and his poor historian so most of the information took from the records Patient is complaining from epigastric pain radiating to the back Vision denies current nausea and vomiting As per staff he was more agitated earlier and he got one dose of Haldol Review of Systems 14 point systemic review were negative except was mentioned in the HPI Past Medical History Past Medical History: Coronary Artery Disease (CAD), Diabetes Mellitus, Hyperlipidemia, Hypertension, Myocardial Infarction ([place]) Additional Past Medical History / Comment(s): pancreatitis/ETOH abuse. Other hx: Recent head injury with morris now removed. Last Myocardial Infarction Date:: 2011 History of Any Multi-Drug Resistant Organisms: None Reported Past Surgical History: Heart Catheterization With Stent Additional Past Surgical History / Comment(s): PCI with stent at [facility] [place].1996 had rt hand sx to repair nerve/tendons d/t injury. Past Anesthesia/Blood Transfusion Reactions: No Reported Reaction Date of Last Stent Placement:: 2011 Past Psychological History: Anxiety, Bipolar, Depression Additional Psychological History / Comment(s): He does not drive, his significant other drives. There are 4 children in the home Smoking Status: Current every day smoker Past Alcohol Use History: Occasional Additional Past Alcohol Use History / Comment(s): Pt has hx of ETOH abuse. Past Drug Use History: Marijuana Additional Drug Use History / Comment(s): daily use of marijuana - Past Family History Mother Family Medical History: CVA/TIA, Diabetes Mellitus, Hypertension Additional Family Medical History / Comment(s): Mother is still living. Father Family Medical History: CVA/TIA Additional Family Medical History / Comment(s): Father is still living. Medications and Allergies Home Medications Medication Instructions Recorded Confirmed Type Aspirin EC [Ecotrin Low Dose] 81 mg PO DAILY #30 tablet. 02/11/17 01/26/18 Rx Atorvastatin [Lipitor] 80 mg PO HS 09/27/17 01/26/18 History Insulin Glargine,Hum.rec.anlog 22 unit SQ HS #1 syr 10/04/17 01/26/18 Rx [Basaglar Kwikpen U-100] Lisinopril [Zestril] 20 mg PO BID #60 tab 10/04/17 01/26/18 Rx Metoprolol Tartrate [Lopressor] 50 mg PO BID #60 tab 10/04/17 01/26/18 Rx cloNIDine HCL [Catapres] 0.1 mg PO TID #90 tab 10/04/17 01/26/18 Rx hydrALAZINE HCL [Apresoline] 50 mg PO TID #90 tab 10/04/17 01/26/18 Rx INSULIN LISPRO (HumaLOG) [HumaLOG] 5 units SQ ACHS 12/09/17 01/26/18 History Allergies Allergy/AdvReac Type Severity Reaction Status Date / Time Mushroom AdvReac Nausea & Verified 01/26/18 18:40 Vomiting shellfish derived [Shellfish] AdvReac Nausea & Verified 01/26/18 18:40 Vomiting Physical Exam Vitals: Vital Signs Temp Pulse Pulse Resp BP BP Pulse Ox 01/27/18 12:00 59 L 18 157/95 99 01/27/18 08:00 97.6 F 69 18 163/105 99 01/27/18 07:45 69 18 01/27/18 04:00 98.6 F 64 18 176/107 98 01/27/18 00:19 98.6 F 86 20 155/101 99 01/26/18 23:31 97.9 F 86 16 164/97 99 01/26/18 22:51 165/99 01/26/18 22:34 92 17 100 01/26/18 22:33 180/115 01/26/18 21:23 194/116 01/26/18 21:10 197/124 01/26/18 20:56 84 16 201/111 100 01/26/18 20:31 206/123 01/26/18 18:14 98.5 F 97 18 170/121 99 Intake and Output 01/26/18 01/27/18 01/27/18 22:59 06:59 14:59 Intake Total 1997 Output Total 200 Balance 1798 Intake: Intake, IV Titration 1997 Amount Sodium Chloride 0.9% 2, 999 000 ml @ 999 mls/hr IV . Q2H1M ONE Rx#:[id number] Sodium Chloride 0.9% 2, 999 000 ml @ 999 mls/hr IV . Q2H1M STA Rx#:[id number] Output: Urine 200 Other: Voiding Method Urinal Urinal # Voids 2 Weight 83.007 kg 80.7 kg -Constitutional: In [id number] distress, conversant, confused Eyes: Anicteric sclerae, moist conjunctiva, no lid-lag PERRLA ENMT: NC/AT Oropharynx clear, no erythema, exudates Neck: Supple, FROM, no masses, or JVD No carotid bruits No thyromegaly Lungs: Clear to auscultation Clear to percussion Normal respiratory effort, no accessory muscle use Cardiovascular: Heart regular in rate and rhythm, No murmurs, gallops, or rubs No peripheral edema -Abdominal: Soft epigastric tenderness, no guarding, rebound or rigidity Abdomen moving with respiration Normoactive bowel sounds No hepatomegaly, No splenomegaly No palpable mass No abdominal wall hernia noted Skin: Normal temperature, tone, texture, turgor No induration No subcutaneous nodules No rash, lesions No ulcers Extremities: No digital cyanosis No clubbing Pedal pulses intact and symmetrical Radial pulses intact and symmetrical Normal gait and station No calf tenderness -Psychiatric: Alert and confused Appropriate affect Intact judgement Neuro: Muscles Strength 5/5 in all 4 extremities Sensation to light touch grossly present throughout Cranial nerves II-XII grossly intact No focal sensory deficits Results CBC & Chem 7: 01/26/18 18:19 01/26/18 18:19 Labs: Abnormal Lab Results - Last 24 Hours (Table) 01/26/18 01/26/18 01/26/18 Range/Units 18:13 18:19 18:19 WBC 12.0 H (3.8-10.6) k/uL Neutrophils # 10.0 H (1.3-7.7) k/uL Sodium 135 L (137-145) mmol/L Carbon Dioxide 17 L (22-30) mmol/L Glucose 229 H (74-99) mg/dL POC Glucose (mg/dL) (75-99) mg/dL Hemoglobin A1c 8.9 H (4.0-6.0) % AST 94 H (17-59) U/L Total Creatine Kinase (55-170) U/L Amylase 129 H (30-110) U/L Lipase 801 H (23-300) U/L Ur Specific [place] (1.001-1.035) Urine Protein (Negative) Urine Glucose (UA) (Negative) Urine Ketones (Negative) Urine Bilirubin (Negative) Hyaline Casts (0-2) /lpf Urine Mucus (None) /hpf 01/26/18 01/26/18 01/27/18 Range/Units 18:49 20:35 00:35 WBC (3.8-10.6) k/uL Neutrophils # (1.3-7.7) k/uL Sodium (137-145) mmol/L Carbon Dioxide (22-30) mmol/L Glucose (74-99) mg/dL POC Glucose (mg/dL) 160 H (75-99) mg/dL Hemoglobin A1c (4.0-6.0) % AST (17-59) U/L Total Creatine Kinase 192 H (55-170) U/L Amylase (30-110) U/L Lipase (23-300) U/L Ur Specific [place] 1.049 H (1.001-1.035) Urine Protein 2+ H (Negative) Urine Glucose (UA) 4+ H (Negative) Urine Ketones 4+ H (Negative) Urine Bilirubin 1+ H (Negative) Hyaline Casts 5 H (0-2) /lpf Urine Mucus Few H (None) /hpf 01/27/18 01/27/18 Range/Units 06:15 11:42 WBC (3.8-10.6) k/uL Neutrophils # (1.3-7.7) k/uL Sodium (137-145) mmol/L Carbon Dioxide (22-30) mmol/L Glucose (74-99) mg/dL POC Glucose (mg/dL) 153 H 166 H (75-99) mg/dL Hemoglobin A1c (4.0-6.0) % AST (17-59) U/L Total Creatine Kinase (55-170) U/L Amylase (30-110) U/L Lipase (23-300) U/L Ur Specific [place] (1.001-1.035) Urine Protein (Negative) Urine Glucose (UA) (Negative) Urine Ketones (Negative) Urine Bilirubin (Negative) Hyaline Casts (0-2) /lpf Urine Mucus (None) /hpf Thrombosis Risk Factor Assmnt - Choose All That Apply Any of the Below Risk Factors Present?: No Other Risk Factors: No Thrombosis Risk Factor Assessment Level: Very Low Risk Assessment and Plan Assessment: Acute on chronic pancreatitis Alcoholism Confusion Hypertension Plan: Patient is a pleasant 49 years old male with past medical history of pancreatitis secondary to alcoholism who presents with epigastric pain and tenderness with high amplitude lipase level at 801, monthly elevated liver enzymes, and confusion Patient is a started on the C1 protocol with banana bag, aggressive hydration, pain management, nothing by mouth Name going to order a CT of the head and view office confusion, and chest x-ray Prognosis is guarded given patient's recurrent disease
[2018-01-27 13:25] LABS: Basophils % (A) 0 %; Eosinophils # (A) 0.2 k/uL (0-0.7); Eosinophils % (A) 2 %; HCT 49.1 % (39.0-53.0); HGB 15.8 gm/dL (13.0-17.5); Lymphocytes # (A) 1.9 k/uL (1.0-4.8); Lymphocytes % (A) 16 %; MCH 29.4 pg (25.0-35.0); MCHC 32.2 g/dL (31.0-37.0); MCV 91.3 fL (80.0-100.0); Mean Platelet Volume 9.5; Monocytes # (A) 0.5 k/uL (0-1.0); Monocytes % (A) 4 %; Neutrophils # (A) 9.4 k/uL (1.3-7.7); Neutrophils % (A) 77 %; Platelet Count 231 k/uL (150-450); RBC 5.38 m/uL (4.30-5.90); WBC 12.2 k/uL (3.8-10.6)
[2018-01-27 13:27] LABS: Anion Gap 16 mmol/L; Blood Urea Nitrogen 8 mg/dL (9-20); Calcium 8.8 mg/dL (8.4-10.2); Carbon Dioxide 17 mmol/L (22-30); Chloride 102 mmol/L (98-107); Glucose 162 mg/dL (74-99); Potassium 4.2 mmol/L (3.5-5.1); Sodium 135 mmol/L (137-145)
--- NOTE | 2018-01-27 13:45 | CT ---
EXAMINATION TYPE: CT brain wo con DATE OF EXAM: 01/27/2018 COMPARISON: NONE HISTORY: ams CT DLP: 1054.[address] of the brain was performed. The ventricles, basal cisterns and sulci overlying the cerebral convexities demonstrate a normal appe arance. There is no evidence for intracranial hemorrhage or sulcal effacement. No mass effects are seen. Osseous calvarium is intact. If symptoms persist consider MRI as clinically warranted. IMPRESSION: 1. No acute intracranial process is seen at this time.
--- NOTE | 2018-01-27 13:51 | XR ---
EXAMINATION TYPE: XR chest 2V DATE OF EXAM: 01/27/2018 COMPARISON: Chest x-ray and CTA chest February 09, 2017 HISTORY: Alcohol abuse, altered mental status and weakness. TECHNIQUE: Frontal and lateral views of the chest are obtained. FINDINGS: There is no focal air space opacity, pleural effusion, or pneumothorax seen. The cardiac silhouette size is within normal limits. The osseous structures are intact. IMPRESSION: No acute cardiopulmonary process.
--- NOTE | 2018-01-27 14:45 | P.CN ---
Psychiatric Consult - . Consult date: 01/27/18 Consult:: 01/27/18 14:26 Patient was seen for a psychiatry consult regarding "withdrawal delirium". Patient has been fast asleep since soon after 1200 hrs. I called his name several times and he did not wake up. The history is quite scant and not helpful to make a definite assessment. According to the RN patient stated that he drinks about 5 beers at a time. It is not clear how many ounces each can has or how many times he drinks 5 beers. It is not clear when was his last drink. He came to the hospital yesterday with the complaint of epigastric pain. Patient is currently treated for withdrawal and agitation by using Ativan IV and Haldol IM on a when necessary basis. He has multiple other physical problems for which he is treated also. His CBC is indicative of bacterial infection somewhere. Chest x-ray computed tomography scan of the brain, x-ray of the abdomen etc. were negative. EKG shows T-wave abnormality and lateral ischemia needs to be considered. CK is increased along with borderline elevated blood sugar. No results of UDS or blood alcohol level. Patient is extremely sound asleep. Unless this is the effect of Ativan and Haldol combined, patients with delirium usually cannot sleep this sound. Assessment: Not able to make a definite diagnosis of withdrawal delirium since I don't have good information. Suggestion: Gathering information about his daily alcohol intake, last use will help to confirm or rule out the diagnosis of withdrawal delirium. However since he came here yesterday evening and unless he did not have any drinks for at least a day or 2 withdrawal delirium is rather questionable. But, until you have all the information, I suppose it is safe to treat him as if he is having withdrawal delirium, according to hospital protocol. Continue treatment for of other physical problems including the antibiotics as you are doing.
[2018-01-27] MEDS: THIAMINE 100 MG TAB PO SCH (15:18)
[2018-01-27] MEDS: ENOXAPARIN 40 MG/0.4 ML SYRINGE SQ SCH (16:53)
[2018-01-27 16:55] LABS: Glucose,Whole Blood 143 mg/dL (75-99)
[2018-01-27] MEDS: ATORVASTATIN 80 MG TAB PO SCH (20:41)
[2018-01-27 20:56] LABS: Glucose,Whole Blood 167 mg/dL (75-99)
[2018-01-27] MEDS ORDERED: MORPHINE SULFATE 4 MG/0.8 ML SYRINGE (INJ) IVP ONE (21:29)
[2018-01-28] MEDS: MORPHINE SULFATE 4 MG/0.8 ML SYRINGE (INJ) IVP PRN ×6 (01:39→22:14)
[2018-01-28] MEDS: hydrALAZINE HCL 20 MG/ML 1 ML VIAL IVP PRN ×2 (03:03→14:50)
[2018-01-28] MEDS: 1: MVI, ADULT NO.4 WITH VIT K 10 ML, THIAMINE 100 MG, FOLIC ACID 1 MG in SODIUM CHLORIDE IV SCH ×28 (05:35→14:44)
[2018-01-28 07:05] LABS: Glucose,Whole Blood 160 mg/dL (75-99)
[2018-01-28] MEDS: NICOTINE 21MG/24HR PATCH TRANSDERM SCH (07:56)
[2018-01-28] MEDS: INSULIN ASPART 100 UNIT/ML 1 ML 10 ML VIAL SQ SCH ×3 (07:56→17:30)
[2018-01-28] MEDS: cloNIDine HCL 0.1 MG TAB PO SCH ×3 (07:57→22:15)
[2018-01-28] MEDS: ENOXAPARIN 40 MG/0.4 ML SYRINGE SQ SCH (07:57)
[2018-01-28] MEDS: METOPROLOL TARTRATE 50 MG TAB PO SCH ×2 (07:58→22:15)
[2018-01-28] MEDS: hydrALAZINE HCL 50 MG TAB PO SCH ×2 (07:58→22:15)
[2018-01-28] MEDS: LISINOPRIL 20 MG TAB PO SCH ×2 (07:58→22:15)
[2018-01-28] MEDS: PANTOPRAZOLE 40 MG/10 ML VIAL IV SCH (07:59)
[2018-01-28 09:25] LABS: ALT 54 U/L (21-72); AST 60 U/L (17-59); Albumin 4.3 g/dL (3.5-5.0); Alkaline Phosphatase 93 U/L (38-126); Anion Gap 20 mmol/L; Blood Urea Nitrogen 7 mg/dL (9-20); Calcium 9.5 mg/dL (8.4-10.2); Carbon Dioxide 16 mmol/L (22-30); Chloride 100 mmol/L (98-107); Glucose 153 mg/dL (74-99); Potassium 3.9 mmol/L (3.5-5.1); Sodium 136 mmol/L (137-145); Total Protein 6.7 g/dL (6.3-8.2)
[2018-01-28 10:52] LABS: Amylase 103 U/L (30-110); Basophils % (A) 0 %; Eosinophils # (A) 0.1 k/uL (0-0.7); Eosinophils % (A) 1 %; HCT 49.4 % (39.0-53.0); Lipase 583 U/L (23-300); Lymphocytes # (A) 2.3 k/uL (1.0-4.8); Lymphocytes % (A) 19 %; MCH 29.5 pg (25.0-35.0); MCHC 32.5 g/dL (31.0-37.0); MCV 91.1 fL (80.0-100.0); Monocytes # (A) 0.6 k/uL (0-1.0); Monocytes % (A) 5 %; Neutrophils # (A) 9.2 k/uL (1.3-7.7); Neutrophils % (A) 74 %; Platelet Count 241 k/uL (150-450); RBC 5.43 m/uL (4.30-5.90); RDW 13.1 % (11.5-15.5); WBC 12.5 k/uL (3.8-10.6)
[2018-01-28] MEDS: THIAMINE 100 MG TAB PO SCH ×2 (12:19→15:57)
--- NOTE | 2018-01-28 12:26 | P.PN ---
Subjective Patient is seen and examined by me at bedside Known new complaints Patient is more alert today and Morcom He still have significant epigastric pain, no nausea and vomiting No chest pain no dyspnea Objective - Vital Signs Vital signs: Vital Signs Temp 98.9 F 01/28/18 05:15 Pulse 75 01/28/18 05:15 Resp 16 01/28/18 05:15 BP 155/93 01/28/18 10:03 Pulse Ox 100 01/28/18 05:15 Intake & Output 01/27/18 01/28/18 01/28/18 18:59 06:59 18:59 Intake Total 1011.2 Output Total 200 Balance 811.2 Weight 76.5 kg Intake: Intake, IV Titration 1011.2 Amount Mvi, Adult No.4 with Vit 1011.2 K 10 ml Thiamine 100 mg Folic Acid 1 mg In Sodium Chloride 0.9% 1,000 ml @ 200 mls/hr IV .BY DURATION ENMA Rx#: [id number] Output: Urine 200 Other: Voiding Method Urinal Urinal # Voids 2 3 - Exam Constitutional: No acute distress, conversant, pleasant Eyes: Anicteric sclerae, moist conjunctiva, no lid-lag PERRLA ENMT: NC/AT Oropharynx clear, no erythema, exudates Neck: Supple, FROM, no masses, or JVD No carotid bruits No thyromegaly Lungs: Clear to auscultation Clear to percussion Normal respiratory effort, no accessory muscle use Cardiovascular: Heart regular in rate and rhythm, No murmurs, gallops, or rubs No peripheral edema Abdominal: Soft Epigastric tenderness, no guarding, rebound or rigidity Abdomen moving with respiration Normoactive bowel sounds No hepatomegaly, No splenomegaly No palpable mass No abdominal wall hernia noted Skin: Normal temperature, tone, texture, turgor No induration No subcutaneous nodules No rash, lesions No ulcers Extremities: No digital cyanosis No clubbing Pedal pulses intact and symmetrical Radial pulses intact and symmetrical Normal gait and station No calf tenderness Psychiatric: Alert and oriented to person, place and time Appropriate affect Intact judgement Neuro: Muscles Strength 5/5 in all 4 extremities Sensation to light touch grossly present throughout Cranial nerves II-XII grossly intact No focal sensory deficits - Labs CBC & Chem 7: 01/28/18 08:29 01/28/18 08:29 Labs: Abnormal Lab Results - Last 24 Hours (Table) 01/27/18 01/27/18 01/27/18 Range/Units 05:57 05:57 16:48 WBC 12.2 H (3.8-10.6) k/uL Neutrophils # 9.4 H (1.3-7.7) k/uL Sodium 135 L (137-145) mmol/L Carbon Dioxide 17 L (22-30) mmol/L BUN 8 L (9-20) mg/dL Glucose 162 H (74-99) mg/dL POC Glucose (mg/dL) 143 H (75-99) mg/dL AST (17-59) U/L Lipase (23-300) U/L 01/27/18 01/28/18 01/28/18 Range/Units 20:37 07:03 08:29 WBC (3.8-10.6) k/uL Neutrophils # (1.3-7.7) k/uL Sodium 136 L (137-145) mmol/L Carbon Dioxide 16 L (22-30) mmol/L BUN 7 L (9-20) mg/dL Glucose 153 H (74-99) mg/dL POC Glucose (mg/dL) 167 H 160 H (75-99) mg/dL AST 60 H (17-59) U/L Lipase (23-300) U/L 01/28/18 01/28/18 Range/Units 08:29 08:29 WBC 12.5 H (3.8-10.6) k/uL Neutrophils # 9.2 H (1.3-7.7) k/uL Sodium (137-145) mmol/L Carbon Dioxide (22-30) mmol/L BUN (9-20) mg/dL Glucose (74-99) mg/dL POC Glucose (mg/dL) (75-99) mg/dL AST (17-59) U/L Lipase 583 H (23-300) U/L Assessment and Plan Assessment: Acute on chronic pancreatitis Alcoholism Confusion Hypertension Plan: Patient is a pleasant 49 years old male with past medical history of pancreatitis secondary to alcoholism who presents with epigastric pain and tenderness with high amplitude lipase level at 801, monthly elevated liver enzymes, and confusion which is resolved Patient is a started on the CIWA protocol with banana bag, aggressive hydration , pain management, nothing by mouth CT of the head is negative, and chest x-ray: No acute process Still has mild leukocytosis at 12 K, consult GI team Prognosis is guarded given patient's recurrent disease
[2018-01-28 12:34] LABS: Glucose,Whole Blood 258 mg/dL (75-99)
[2018-01-28] MEDS: LORazepam 2 MG/ML INJ IV PRN (14:18)
[2018-01-28 17:18] LABS: Glucose,Whole Blood 131 mg/dL (75-99)
[2018-01-28 20:39] LABS: Glucose,Whole Blood 207 mg/dL (75-99)
[2018-01-28] MEDS: ATORVASTATIN 80 MG TAB PO SCH (22:15)
[2018-01-29] MEDS: LORazepam 2 MG/ML INJ IV PRN (00:21)
[2018-01-29] MEDS: MORPHINE SULFATE 4 MG/0.8 ML SYRINGE (INJ) IVP PRN ×8 (02:41→23:28)
[2018-01-29] MEDS: hydrALAZINE HCL 20 MG/ML 1 ML VIAL IVP PRN ×2 (05:51→11:49)
[2018-01-29] MEDS: 1: MVI, ADULT NO.4 WITH VIT K 10 ML, THIAMINE 100 MG, FOLIC ACID 1 MG in SODIUM CHLORIDE IV SCH ×12 (05:52→18:16)
[2018-01-29 07:15] LABS: Glucose,Whole Blood 207 mg/dL (75-99)
[2018-01-29] MEDS: INSULIN ASPART 100 UNIT/ML 1 ML 10 ML VIAL SQ SCH ×3 (07:34→17:30)
[2018-01-29] MEDS: hydrALAZINE HCL 50 MG TAB PO SCH ×3 (07:35→22:03)
[2018-01-29] MEDS: cloNIDine HCL 0.1 MG TAB PO SCH ×3 (07:35→22:03)
[2018-01-29] MEDS: ENOXAPARIN 40 MG/0.4 ML SYRINGE SQ SCH (07:35)
[2018-01-29] MEDS: METOPROLOL TARTRATE 50 MG TAB PO SCH ×2 (07:36→20:08)
[2018-01-29] MEDS: LISINOPRIL 20 MG TAB PO SCH ×2 (07:36→20:08)
[2018-01-29] MEDS: PANTOPRAZOLE 40 MG/10 ML VIAL IV SCH (07:36)
[2018-01-29] MEDS: NICOTINE 21MG/24HR PATCH TRANSDERM SCH (07:36)
--- NOTE | 2018-01-29 10:58 | CONS ---
CONSULTATION DATE OF DICTATION: January 29, 2018. REQUESTING PHYSICIAN: Dr. Villarreal. REASON FOR CONSULTATION: Abdominal pain and history of recurrent pancreatitis. HISTORY OF PRESENT ILLNESS: The patient is a 37-year-old white male admitted to hospital with epigastric pain associated with nausea, vomiting for the last 3-4 days duration. The patient has history of heavy alcoholism and has been in the hospital with acute recurrent pancreatitis over the last year or so. Last hospitalization was about 2 months ago. He describes the pain mostly in the epigastric area radiating to the back associated with some nausea, vomiting. He states he quit drinking alcohol about 3 months ago. He reports no rectal bleeding or melena. At time of admission to the hospital he was noted to have mild elevation of lipase. PAST MEDICAL HISTORY: Significant for heavy alcohol abuse, diabetes mellitus, coronary artery disease status post MS 2 months ago. Hyperlipidemia. PAST SURGICAL HISTORY: Cardiac cath with stent placement. MEDICATIONS: At home include Lipitor, Excedrin, Zestril, Lopressor, Catapres, Apresoline, Humalog. ALLERGIES: TO SHELLFISH. FAMILY HISTORY: Mother has diabetes mellitus, CVA and hypertension. Father has CVA. SOCIAL HISTORY: Chronic smoker, history of alcohol abuse, quit drinking 3 months ago. REVIEW OF SYSTEMS: Cardiopulmonary: No chest pain, shortness of breath. Genitourinary: No dysuria or hematuria. Musculoskeletal unremarkable. Skin unremarkable. Endocrine unremarkable. Psychiatric unremarkable. Neurology unremarkable. ENT vision unremarkable. Constitutional: No recent weight loss. No fever, chills, night sweats. PHYSICAL EXAMINATION: He appears comfortable. No apparent distress. Vital signs stable. Blood pressure is 146/99, pulse rate 89, temperature 97. HEENT examination unremarkable. Conjunctivae pink. Sclerae anicteric. Oral cavity no lesions. Neck: No jugular venous distention or lymph node enlargement. Chest was clear to auscultation. HEART: Regular rate and rhythm rate and rhythm. ABDOMEN: Soft, bowel sounds are positive. There was tenderness in the epigastric area and slightly in the right upper quadrant area. Extremities: No pedal edema. Skin no rashes. NEUROLOGIC: Alert and oriented x3. No focal deficits. LABS: From yesterday, WBC 12.5, hemoglobin 16, platelets are normal. ALT, AST 54 and 60 respectively. T bilirubin and alkaline phosphatase are within normal limits. Lipase is 583. Amylase is 103. IMPRESSION: 1. This is a patient with history of chronic alcohol abuse, presents to the hospital with epigastric pain associated with nausea, vomiting for the last 2 days duration. Most likely we are dealing with chronic relapsing pancreatitis from history of heavy alcohol abuse which he quit drinking about 3 months ago. His last hospitalization was a month ago. 2. History of anxiety and depression. Psychiatry has been consulted. RECOMMENDATIONS: 1. Start him on a clear liquid diet. 2. Symptomatic and supportive care. 3. Continue with IV Protonix as well as Zofran as needed. 4. No need for any endoscopy intervention. 5. We will follow the patient closely during hospital stay. Thank you for this consultation. REUBEN / IJN: [id number] /
[2018-01-29] MEDS: THIAMINE 100 MG TAB PO SCH ×2 (11:42→16:31)
[2018-01-29 12:31] LABS: Glucose,Whole Blood 152 mg/dL (75-99)
--- NOTE | 2018-01-29 13:30 | P.PN ---
Subjective Patient is seen and examined by me at bedside Known new complaints Patient is more alert today He still have significant epigastric pain, no nausea and vomiting, patient could not tolerate diet today, keep nothing by mouth continue with same management No chest pain no dyspnea Objective - Vital Signs Vital signs: Vital Signs Temp 97.0 F L 01/29/18 05:30 Pulse 84 01/29/18 08:36 Resp 16 01/29/18 05:30 BP 166/107 01/29/18 11:47 Pulse Ox 98 01/29/18 05:30 Intake & Output 01/28/18 01/29/18 01/29/18 18:59 06:59 18:59 Intake Total 1011.2 Output Total 700 Balance 1011.2 -700 Weight 77.2 kg Intake: Intake, IV Titration 1011.2 Amount Mvi, Adult No.4 with Vit 1011.2 K 10 ml Thiamine 100 mg Folic Acid 1 mg In Sodium Chloride 0.9% 1,000 ml @ 250 mls/hr IV .BY DURATION ENMA Rx#: [id number] Output: Urine 700 Other: Voiding Method Urinal # Voids 3 4 - Exam Constitutional: No acute distress, conversant, pleasant Eyes: Anicteric sclerae, moist conjunctiva, no lid-lag PERRLA ENMT: NC/AT Oropharynx clear, no erythema, exudates Neck: Supple, FROM, no masses, or JVD No carotid bruits No thyromegaly Lungs: Clear to auscultation Clear to percussion Normal respiratory effort, no accessory muscle use Cardiovascular: Heart regular in rate and rhythm, No murmurs, gallops, or rubs No peripheral edema Abdominal: Soft Epigastric tenderness, no guarding, rebound or rigidity Abdomen moving with respiration Normoactive bowel sounds No hepatomegaly, No splenomegaly No palpable mass No abdominal wall hernia noted Skin: Normal temperature, tone, texture, turgor No induration No subcutaneous nodules No rash, lesions No ulcers Extremities: No digital cyanosis No clubbing Pedal pulses intact and symmetrical Radial pulses intact and symmetrical Normal gait and station No calf tenderness Psychiatric: Alert and oriented to person, place and time Appropriate affect Intact judgement Neuro: Muscles Strength 5/5 in all 4 extremities Sensation to light touch grossly present throughout Cranial nerves II-XII grossly intact No focal sensory deficits - Labs CBC & Chem 7: 01/28/18 08:29 01/28/18 08:29 Labs: Abnormal Lab Results - Last 24 Hours (Table) 01/28/18 01/28/18 01/29/18 Range/Units 17:15 20:37 07:10 POC Glucose (mg/dL) 131 H 207 H 207 H (75-99) mg/dL 01/29/18 Range/Units 12:26 POC Glucose (mg/dL) 152 H (75-99) mg/dL Assessment and Plan Assessment: Acute on chronic pancreatitis Alcoholism Confusion Hypertension Plan: Patient is a pleasant 49 years old male with past medical history of pancreatitis secondary to alcoholism who presents with epigastric pain and tenderness with high lipase level at 801, elevated liver enzymes, and confusion which is resolved Patient is a started on the CIWA protocol with banana bag, aggressive hydration , pain management, nothing by mouth CT of the head is negative, and chest x-ray: No acute process Still has mild leukocytosis at 12 K, GI team consult is appreciated, the recommended to continue with the same treatment Prognosis is guarded given patient's recurrent disease
[2018-01-29 13:43] LABS: Basophils % (A) 0 %; Eosinophils # (A) 0.2 k/uL (0-0.7); Eosinophils % (A) 2 %; HCT 47.9 % (39.0-53.0); HGB 15.8 gm/dL (13.0-17.5); Lymphocytes # (A) 1.6 k/uL (1.0-4.8); Lymphocytes % (A) 17 %; MCH 29.1 pg (25.0-35.0); MCHC 32.9 g/dL (31.0-37.0); MCV 88.4 fL (80.0-100.0); Monocytes # (A) 0.4 k/uL (0-1.0); Monocytes % (A) 5 %; Neutrophils # (A) 6.8 k/uL (1.3-7.7); Neutrophils % (A) 75 %; Platelet Count 208 k/uL (150-450); RBC 5.42 m/uL (4.30-5.90); WBC 9.1 k/uL (3.8-10.6)
[2018-01-29 13:57] LABS: ALT 42 U/L (21-72); AST 28 U/L (17-59); Albumin 4.1 g/dL (3.5-5.0); Alkaline Phosphatase 83 U/L (38-126); Anion Gap 19 mmol/L; Bilirubin, Delta 0.4 mg/dL (0.0-0.2); Bilirubin,Unconjugated 0.5 mg/dL (0.0-1.1); Blood Urea Nitrogen 4 mg/dL (9-20); Calcium 9.3 mg/dL (8.4-10.2); Carbon Dioxide 17 mmol/L (22-30); Chloride 100 mmol/L (98-107); Glucose 178 mg/dL (74-99); Magnesium 1.6 mg/dL (1.6-2.3); Potassium 3.4 mmol/L (3.5-5.1); Sodium 136 mmol/L (137-145); Total Bilirubin 0.9 mg/dL (0.2-1.3); Total Protein 6.5 g/dL (6.3-8.2)
[2018-01-29] MEDS ORDERED: Potassium Replacement Protocol 1 EACH MISC MISCELLANE PRN (15:36)
[2018-01-29] MEDS: POTASSIUM CHLORIDE ER 20 MEQ TAB.ER PO SCH ×2 (16:30→17:24)
[2018-01-29] MEDS: ACETAMINOPHEN TAB 325 MG TAB PO PRN (17:24)
[2018-01-29 17:41] LABS: Glucose,Whole Blood 201 mg/dL (75-99)
[2018-01-29] MEDS ORDERED: POTASSIUM CHLORIDE 20 MEQ in WATER FOR INJECTION 1 100ML.BAG IVPB STA ×2 (17:57→17:58)
[2018-01-29 18:00] LABS: Amylase 69 U/L (30-110); Lipase 366 U/L (23-300)
[2018-01-29] MEDS ORDERED: MAGNESIUM SULFATE-D5W PMX 1 GM in DEXTROSE/WATER 1 100ML.BAG IVPB ONE (18:30)
[2018-01-29] MEDS: ATORVASTATIN 80 MG TAB PO SCH (20:08)
[2018-01-29] MEDS: MAGNESIUM SULFATE-D5W PMX 1 GM in DEXTROSE/WATER 1 100ML.BAG IVPB SCH ×2 (20:31→22:02)
[2018-01-29 21:02] LABS: Glucose,Whole Blood 210 mg/dL (75-99)
[2018-01-30] MEDS: MORPHINE SULFATE 4 MG/0.8 ML SYRINGE (INJ) IVP PRN ×2 (02:29→05:56)
[2018-01-30] MEDS: LORazepam 2 MG/ML INJ IV PRN (03:21)
[2018-01-30] MEDS: 1: MVI, ADULT NO.4 WITH VIT K 10 ML, THIAMINE 100 MG, FOLIC ACID 1 MG in SODIUM CHLORIDE IV SCH ×12 (05:51→14:11)
[2018-01-30 07:28] LABS: Glucose,Whole Blood 338 mg/dL (75-99)
[2018-01-30] MEDS: INSULIN ASPART 100 UNIT/ML 1 ML 10 ML VIAL SQ SCH ×3 (07:29→17:20)
[2018-01-30] MEDS: NICOTINE 21MG/24HR PATCH TRANSDERM SCH (07:30)
[2018-01-30] MEDS: PANTOPRAZOLE 40 MG/10 ML VIAL IV SCH (07:30)
[2018-01-30] MEDS: METOPROLOL TARTRATE 50 MG TAB PO SCH ×2 (07:30→20:56)
[2018-01-30] MEDS: ENOXAPARIN 40 MG/0.4 ML SYRINGE SQ SCH (07:30)
[2018-01-30] MEDS: hydrALAZINE HCL 50 MG TAB PO SCH ×3 (07:31→20:57)
[2018-01-30] MEDS: LISINOPRIL 20 MG TAB PO SCH ×2 (07:31→20:57)
[2018-01-30] MEDS: ACETAMINOPHEN TAB 325 MG TAB PO PRN ×3 (07:32→21:01)
[2018-01-30] MEDS: cloNIDine HCL 0.1 MG TAB PO SCH ×3 (07:40→20:57)
[2018-01-30] MEDS: MORPHINE ORAL SOLN 10 MG/5 ML CUP PO PRN ×5 (09:01→20:57)
[2018-01-30 10:46] LABS: Basophils % (A) 0 %; Eosinophils # (A) 0.1 k/uL (0-0.7); Eosinophils % (A) 1 %; HCT 44.1 % (39.0-53.0); HGB 15.4 gm/dL (13.0-17.5); Lymphocytes # (A) 1.5 k/uL (1.0-4.8); Lymphocytes % (A) 18 %; MCH 30.5 pg (25.0-35.0); MCHC 34.8 g/dL (31.0-37.0); MCV 87.7 fL (80.0-100.0); Mean Platelet Volume 8.2; Monocytes # (A) 0.5 k/uL (0-1.0); Monocytes % (A) 6 %; Neutrophils # (A) 5.9 k/uL (1.3-7.7); Neutrophils % (A) 73 %; Platelet Count 201 k/uL (150-450); RBC 5.04 m/uL (4.30-5.90); WBC 8.1 k/uL (3.8-10.6)
[2018-01-30 10:50] LABS: Amylase 63 U/L (30-110); Anion Gap 12 mmol/L; Blood Urea Nitrogen 4 mg/dL (9-20); Calcium 9.5 mg/dL (8.4-10.2); Carbon Dioxide 22 mmol/L (22-30); Chloride 99 mmol/L (98-107); Glucose 252 mg/dL (74-99); Lipase 405 U/L (23-300); Magnesium 1.9 mg/dL (1.6-2.3); Potassium 3.6 mmol/L (3.5-5.1); Sodium 133 mmol/L (137-145)
[2018-01-30 12:08] LABS: Glucose,Whole Blood 218 mg/dL (75-99)
[2018-01-30] MEDS: THIAMINE 100 MG TAB PO SCH ×2 (12:09→17:20)
[2018-01-30 14:23] VITALS: BMI 23.7
[2018-01-30] MEDS: hydrALAZINE HCL 20 MG/ML 1 ML VIAL IVP PRN (15:45)
[2018-01-30 17:13] LABS: Glucose,Whole Blood 237 mg/dL (75-99)
[2018-01-30 20:31] LABS: Glucose,Whole Blood 217 mg/dL (75-99)
[2018-01-30] MEDS: ATORVASTATIN 80 MG TAB PO SCH (20:56)
[2018-01-31] MEDS: MORPHINE ORAL SOLN 10 MG/5 ML CUP PO PRN ×6 (00:53→22:05)
[2018-01-31] MEDS: LORazepam 2 MG/ML INJ IV PRN (03:28)
[2018-01-31] MEDS: 1: MVI, ADULT NO.4 WITH VIT K 10 ML, THIAMINE 100 MG, FOLIC ACID 1 MG in SODIUM CHLORIDE IV SCH ×12 (05:53→16:14)
[2018-01-31 07:38] LABS: Glucose,Whole Blood 259 mg/dL (75-99)
[2018-01-31] MEDS: INSULIN ASPART 100 UNIT/ML 1 ML 10 ML VIAL SQ SCH ×5 (07:48→22:09)
[2018-01-31] MEDS: hydrALAZINE HCL 50 MG TAB PO SCH ×3 (07:50→22:04)
[2018-01-31] MEDS: ENOXAPARIN 40 MG/0.4 ML SYRINGE SQ SCH (07:50)
[2018-01-31] MEDS: cloNIDine HCL 0.1 MG TAB PO SCH ×3 (07:50→22:04)
[2018-01-31] MEDS: PANTOPRAZOLE 40 MG/10 ML VIAL IV SCH (07:51)
[2018-01-31] MEDS: NICOTINE 21MG/24HR PATCH TRANSDERM SCH (07:51)
[2018-01-31] MEDS: LISINOPRIL 20 MG TAB PO SCH ×2 (07:51→22:04)
[2018-01-31] MEDS: METOPROLOL TARTRATE 50 MG TAB PO SCH ×2 (07:51→22:04)
[2018-01-31 08:42] LABS: Basophils % (A) 0 %; Eosinophils # (A) 0.2 k/uL (0-0.7); Eosinophils % (A) 3 %; HCT 47.2 % (39.0-53.0); Lymphocytes # (A) 1.5 k/uL (1.0-4.8); Lymphocytes % (A) 27 %; MCH 29.7 pg (25.0-35.0); MCV 87.5 fL (80.0-100.0); Mean Platelet Volume 8.3; Monocytes # (A) 0.3 k/uL (0-1.0); Monocytes % (A) 6 %; Neutrophils # (A) 3.3 k/uL (1.3-7.7); Neutrophils % (A) 62 %; Platelet Count 195 k/uL (150-450); RBC 5.39 m/uL (4.30-5.90); WBC 5.4 k/uL (3.8-10.6)
[2018-01-31 09:01] LABS: Amylase 52 U/L (30-110); Anion Gap 12 mmol/L; Blood Urea Nitrogen 4 mg/dL (9-20); Calcium 9.6 mg/dL (8.4-10.2); Carbon Dioxide 26 mmol/L (22-30); Chloride 97 mmol/L (98-107); Glucose 319 mg/dL (74-99); Lipase 231 U/L (23-300); Magnesium 1.6 mg/dL (1.6-2.3); Potassium 3.9 mmol/L (3.5-5.1); Sodium 135 mmol/L (137-145)
[2018-01-31] MEDS: THIAMINE 100 MG TAB PO SCH ×2 (12:27→16:13)
[2018-01-31 12:29] LABS: Glucose,Whole Blood 182 mg/dL (75-99)
[2018-01-31] MEDS: ACETAMINOPHEN TAB 325 MG TAB PO PRN (16:16)
[2018-01-31 17:39] LABS: Glucose,Whole Blood 272 mg/dL (75-99)
[2018-01-31] MEDS ORDERED: INSULIN DETEMIR 100 UNIT/ML 10 ML VIAL SQ SCH (21:00)
[2018-01-31 21:20] LABS: Glucose,Whole Blood 263 mg/dL (75-99)
[2018-01-31] MEDS: ATORVASTATIN 80 MG TAB PO SCH (22:04)
[2018-02-01 00:49] VITALS: RESP 16
[2018-02-01] MEDS: LORazepam 2 MG/ML INJ IV PRN (01:18)
[2018-02-01] MEDS: 1: MVI, ADULT NO.4 WITH VIT K 10 ML, THIAMINE 100 MG, FOLIC ACID 1 MG in SODIUM CHLORIDE IV SCH ×8 (06:24→07:49)
[2018-02-01 06:44] VITALS: BP 168/104; PULSE 56; TEMP 98.6
[2018-02-01] MEDS: INSULIN ASPART 100 UNIT/ML 1 ML 10 ML VIAL SQ SCH ×4 (07:49→12:35)
[2018-02-01] MEDS: hydrALAZINE HCL 50 MG TAB PO SCH (07:50)
[2018-02-01] MEDS: ENOXAPARIN 40 MG/0.4 ML SYRINGE SQ SCH (07:50)
[2018-02-01] MEDS: cloNIDine HCL 0.1 MG TAB PO SCH (07:50)
[2018-02-01] MEDS: METOPROLOL TARTRATE 50 MG TAB PO SCH (07:51)
[2018-02-01] MEDS: NICOTINE 21MG/24HR PATCH TRANSDERM SCH (07:51)
[2018-02-01] MEDS: LISINOPRIL 20 MG TAB PO SCH (07:51)
[2018-02-01] MEDS: PANTOPRAZOLE 40 MG/10 ML VIAL IV SCH (07:51)
[2018-02-01 08:05] LABS: Glucose,Whole Blood 210 mg/dL (75-99)
[2018-02-01] MEDS ORDERED: ASPIRIN 81 MG PO SCH (09:00)
[2018-02-01 09:36] LABS: Basophils % (A) 0 %; Eosinophils # (A) 0.2 k/uL (0-0.7); Eosinophils % (A) 2 %; HCT 43.9 % (39.0-53.0); HGB 14.8 gm/dL (13.0-17.5); Lymphocytes # (A) 1.9 k/uL (1.0-4.8); Lymphocytes % (A) 23 %; MCH 29.2 pg (25.0-35.0); MCHC 33.6 g/dL (31.0-37.0); MCV 86.9 fL (80.0-100.0); Mean Platelet Volume 9.1; Monocytes # (A) 0.6 k/uL (0-1.0); Monocytes % (A) 7 %; Neutrophils # (A) 5.5 k/uL (1.3-7.7); Neutrophils % (A) 67 %; Platelet Count 183 k/uL (150-450); RBC 5.05 m/uL (4.30-5.90); RDW 12.8 % (11.5-15.5); WBC 8.3 k/uL (3.8-10.6)
[2018-02-01 09:43] LABS: Amylase 42 U/L (30-110); Anion Gap 15 mmol/L; Blood Urea Nitrogen 7 mg/dL (9-20); Calcium 9.7 mg/dL (8.4-10.2); Carbon Dioxide 23 mmol/L (22-30); Chloride 99 mmol/L (98-107); Glucose 246 mg/dL (74-99); Lipase 158 U/L (23-300); Magnesium 1.5 mg/dL (1.6-2.3); Potassium 3.8 mmol/L (3.5-5.1); Sodium 137 mmol/L (137-145)
[2018-02-01 12:15] LABS: Glucose,Whole Blood 340 mg/dL (75-99)
[2018-02-01] MEDS: THIAMINE 100 MG TAB PO SCH (12:35)
--- NOTE | 2018-02-01 15:30 | PN ---
PROGRESS NOTE 01/30/2018 CHIEF COMPLAINT: Pancreatitis, diabetes, and alcoholism. HISTORY OF PRESENT ILLNESS: This gentleman is continuing to have quite a bit of epigastric pain still but he has had no vomiting and he has had no fever or chills. 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 Bowel sounds are present. Chest is clear and cardiac exam is normal. IMPRESSION: 1. Alcoholic pancreatitis. 2. Insulin-dependent diabetes. PLAN: 1. Continue to restrict nutrition. 2. Analgesics. 3. Continue to monitor blood sugars. MMODL / IJN: [id number] /
--- NOTE | 2018-02-01 15:45 | PN ---
PROGRESS NOTE DATE OF SERVICE: 01/31/2018 CHIEF COMPLAINT: Pancreatitis and insulin-dependent diabetes. HISTORY OF PRESENT ILLNESS: This gentleman is doing better, feeling better, and pain is subsiding. PHYSICAL EXAMINATION: He is less tender. There are no masses. Chest is clear. Cardiac exam is normal. IMPRESSION: 1. Pancreatitis. 2. Diabetes. PLAN: Slowly advance diet. MMODL / IJN: [id number] /
--- NOTE | 2018-02-01 20:24 | DS ---
DISCHARGE SUMMARY CHIEF COMPLAINT: Epigastric pain, pancreatitis and uncontrolled insulin-dependent diabetes mellitus. HISTORY OF PRESENT ILLNESS AND PHYSICAL EXAMINATION: Details of this man's history and physical can be found in the initial workup. LABORATORY STUDIES: While he was in the hospital he had laboratory studies, details of which can be found in the laboratory section of his chart. COURSE IN THE HOSPITAL: After admission he was placed on bedrest and started on intravenous fluids and analgesics. He was kept n.p.o. and then slowly advanced on to liquids. Blood sugars were monitored and were slightly high, but he was stable and doing well, and it was felt that he could go home on February 01. He will follow up with us in the office in a day or two. FINAL DIAGNOSES: 1. Alcoholic pancreatitis. 2. Insulin-dependent diabetes mellitus with poor control. OPERATIONS: None. CONSULTATIONS: None. He is improved. REUBEN / ERICH: [id number] /
[2018-02-01] MEDS ORDERED: INSULIN DETEMIR 100 UNIT/ML 10 ML VIAL SQ SCH (21:00)
--- NOTE | 2018-02-02 13:41 | CDI ---
Documentation Clarification Form Date: 02/02/2018 12:00:00 AM From: MAYDA Suh; Marisol Roach [employer] Ch[employer] Phone: If you have a question about this query, please contact Marisol Roach [employer] Ch[employer] at [phone] between 8am and 5pm Admit Date: 01/26/2018 8:22:00 PM Patient Name: Edgardo Briceno Visit Number: [id number] Discharge Date: 02/01/2018 ATTENTION: The Clinical Documentation Specialists (CDI) and [facility] Coding Staff appreciate your assistance in clarifying documentation. Please respond to the clarification below the line at the bottom and electronically sign. The CDI & [facility] Coding staff will review the response and follow-up if needed. Please note: Queries are made part of the Legal Health Record. If you have any questions, please contact the author of this message via ITS. Dr. Howard Villarreal Diabetic ketoacidosis is documented in clinical impression on ED record. Patient history/risk factors: Acute/chronic alcoholic pancreatitis. Lab findings: WBC 12.0, neut 10.0, Na 135*, CO2 17*, Gluc 229, Hgb A1c 8.9, AST 94^, Amylase 129, Lipase 801. UA: sp gr 1.049, 2+ prot, 4+ gluc, 4+ket, 1+ bili. Acetone pos The diagnosis of DKA is not carried throughout the record or to the discharge summary. The discharge summary states DM with poor control. In your professional opinion, can you please clarify? Diabetic ketoacidosis ruled in Diabetic ketoacidosis ruled out DM with hyperglycemia Other, please specify Unable to determine MTDD
--- NOTE | 2018-02-08 12:04 | MISC ---
MISCELLANOUS REPORT QUERY: Diabetic ketoacidosis was ruled in. MMODL / IJN: [id number] /
== END 2018-02-01 12:41 | disposition home or self-care (01) | DRG 438 ==
LOC: SUPCPDRO 18:07 → EC 18:07 → 6SEL 20:22 → 4MS4W 01-27 20:49
PROVIDERS: ADMIT Family Medicine; ATTEND Family Medicine
DX: K85.20 Alcohol induced acute pancreatitis without necrosis or infection (principal); E11.10 Type 2 diabetes mellitus with ketoacidosis without coma; E78.5 Hyperlipidemia, unspecified; F10.20 Alcohol dependence, uncomplicated; F17.200 Nicotine dependence, unspecified, uncomplicated; F32.9 Major depressive disorder, single episode, unspecified; F41.9 Anxiety disorder, unspecified; I10 Essential (primary) hypertension; I25.10 Atherosclerotic heart disease of native coronary artery without angina pectoris; I25.2 Old myocardial infarction; K86.1 Other chronic pancreatitis; Z79.4 Long term (current) use of insulin; Z79.899 Other long term (current) drug therapy; Z82.3 Family history of stroke; Z82.49 Family history of ischemic heart disease and other diseases of the circulatory system; Z83.3 Family history of diabetes mellitus; Z79.82 Long term (current) use of aspirin; Z91.013 Allergy to seafood; Z91.018 Allergy to other foods; Z95.5 Presence of coronary angioplasty implant and graft
CPT/HCPCS: 36415; 70450; 71046; 74019; 80048; 80053; 80076; 80320; 81001; 82009; 82150; 82550; 82553; 83036; 83690; 83735; 84484; 85025; 93005; 96361; 96374; 96375; 96376; 99285

== ENCOUNTER 2018-05-21 05:36 | Observation (INO) | payer OTHER ==
[2018-05-21] MEDS ORDERED: SODIUM CHLORIDE 0.9% 1,000 ML IV STA (05:57)
--- NOTE | 2018-05-21 06:20 | ED ---
General Adult HPI - General Chief complaint: Chest Pain Stated complaint: Chest Pain Time Seen by Provider: 05/21/18 05:57 Source: patient, RN notes reviewed, old records reviewed Mode of arrival: ambulatory Limitations: no limitations - History of Present Illness Initial comments: 38-year-old male presents for evaluation of abdominal pain and chest pain. Patient states that he has had intermittent chest pain over the past several weeks. He has history of CAD status post stent approximately 6 years ago. He is a current smoker. He also admits to consuming alcohol over the past several hours. He does have history of pancreatitis as well. States his pain is different from his typical pancreatitis. Denies fever or chills. He does complain of some nausea and diaphoresis associated with his chest pain. He is not currently on any medication. He has additional past medical history diabetes and hypertension. He has no current primary care physician. - Related Data Home Medications Medication Instructions Recorded Confirmed Atorvastatin [Lipitor] 80 mg PO HS 09/27/17 01/26/18 INSULIN LISPRO (HumaLOG) [humaLOG] 5 units SQ ACHS 12/09/17 01/26/18 Previous Rx's Medication Instructions Recorded Aspirin EC [Ecotrin Low Dose] 81 mg PO DAILY #30 tablet. 02/11/17 Lisinopril [Zestril] 20 mg PO BID #60 tab 10/04/17 Metoprolol Tartrate [Lopressor] 50 mg PO BID #60 tab 10/04/17 cloNIDine HCL [Catapres] 0.1 mg PO TID #90 tab 10/04/17 hydrALAZINE HCL [Apresoline] 50 mg PO TID #90 tab 10/04/17 Insulin Detemir [Levemir] 22 unit SQ HS syr 02/01/18 Insulin Detemir [Levemir] 40 unit SQ HS #60 syr 02/01/18 Allergies Allergy/AdvReac Type Severity Reaction Status Date / Time Mushroom AdvReac Nausea & Verified 05/21/18 05:54 Vomiting shellfish derived [Shellfish] AdvReac Nausea & Verified 05/21/18 05:54 Vomiting Review of Systems ROS Statement: Those systems with pertinent positive or pertinent negative responses have been documented in the HPI. ROS Other: All systems not noted in ROS Statement are negative. Past Medical History Past Medical History: Coronary Artery Disease (CAD), Diabetes Mellitus, Hyperlipidemia, Hypertension, Myocardial Infarction (PA) Additional Past Medical History / Comment(s): pancreatitis/ETOH abuse. Other hx: Recent head injury with morris now removed. Last Myocardial Infarction Date:: 2011 History of Any Multi-Drug Resistant Organisms: None Reported Past Surgical History: Heart Catheterization With Stent Additional Past Surgical History / Comment(s[place] [facility] [place] sx to repair nerve/tendons d/t injury. Past Anesthesia/Blood Transfusion Reactions: No Reported Reaction Date of Last Stent Placement:: 2011 Past Psychological History: Anxiety, Bipolar, Depression Smoking Status: Current every day smoker Past Alcohol Use History: Occasional Past Drug Use History: Marijuana - Past Family History Mother Family Medical History: CVA/TIA, Diabetes Mellitus, Hypertension Additional Family Medical History / Comment(s): Mother is still living. Father Family Medical History: CVA/TIA Additional Family Medical History / Comment(s): Father is still living. General Exam Limitations: no limitations General appearance: alert, in no apparent distress Head exam: Present: atraumatic, normocephalic Eye exam: Present: normal appearance, PERRL ENT exam: Present: normal exam Neck exam: Present: normal inspection. Absent: tenderness, meningismus Respiratory exam: Present: normal lung sounds bilaterally. Absent: respiratory distress, wheezes Cardiovascular Exam: Present: regular rate, normal rhythm GI/Abdominal exam: Present: soft. Absent: distended, tenderness, guarding, rebound Extremities exam: Present: normal inspection, normal capillary refill. Absent: pedal edema Neurological exam: Present: alert, oriented X3, CN II-XII intact. Absent: motor sensory deficit, reflexes normal Psychiatric exam: Present: normal affect, normal mood Skin exam: Present: warm, dry, intact. Absent: cyanosis, diaphoretic Course Vital Signs 05/21/18 05/21/18 05/21/18 05:51 06:14 07:30 Temperature 98.9 F Pulse Rate 103 H 84 76 Respiratory 18 16 Rate Blood Pressure 166/119 177/111 168/107 O2 Sat by Pulse 97 97 98 Oximetry EKG Findings - EKG Comments: EKG Findings:: EKG: Normal sinus rhythm, T-wave inversion in lead 3 as well as the lateral precordial leads, there is no ST segment elevation or depression. Ventricular rate of 88, ND interval 174, QRS duration 78, QTC 423 Medical Decision Making - Medical Decision Making 38-year-old male presenting with chest pain. Patient does have history of CAD. He has been off this medication for several weeks. EKG shows T-wave inversion in the lateral precordial leads which was present on previous EKG in January 2018. Chest x-ray negative for any acute cardiopulmonary disease. CBC, CMP are unremarkable. D-dimer is negative. Initial troponin is negative. Given the patient's risk factors he will be placed in observation for serial cardiac enzymes, telemetry, and cardiology consultation. - Lab Data Result diagrams: 05/21/18 06:03 05/21/18 06:03 Lab Results 05/21/18 05/21/18 05/21/18 Range/Units 06:03 06:03 06:03 WBC 8.8 (3.8-10.6) k/uL RBC 5.10 (4.30-5.90) m/uL Hgb 15.4 (13.0-17.5) gm/dL Hct 45.6 (39.0-53.0) % MCV 89.5 (80.0-100.0) fL MCH 30.2 (25.0-35.0) pg MCHC 33.7 (31.0-37.0) g/dL RDW 13.5 (11.5-15.5) % Plt Count 227 (150-450) k/uL Neutrophils % 60 % Lymphocytes % 32 % Monocytes % 4 % Eosinophils % 1 % Basophils % 0 % Neutrophils # 5.3 (1.3-7.7) k/uL Lymphocytes # 2.8 (1.0-4.8) k/uL Monocytes # 0.4 (0-1.0) k/uL Eosinophils # 0.1 (0-0.7) k/uL Basophils # 0.0 (0-0.2) k/uL PT 10.1 (9.0-12.0) sec INR 1.0 (<1.2) APTT 23.5 (22.0-30.0) sec D-Dimer (<0.60) mg/L FEU Sodium 142 (137-145) mmol/L Potassium 4.3 (3.5-5.1) mmol/L Chloride 106 (98-107) mmol/L Carbon Dioxide 23 (22-30) mmol/L Anion Gap 13 mmol/L BUN 19 (9-20) mg/dL Creatinine 1.10 (0.66-1.25) mg/dL Est GFR (CKD-EPI)AfAm >90 (>60 ml/min/1.73 sqM) Est GFR (CKD-EPI)NonAf 84 (>60 ml/min/1.73 sqM) Glucose 150 H (74-99) mg/dL Calcium 9.6 (8.4-10.2) mg/dL Total Bilirubin 0.5 (0.2-1.3) mg/dL AST 33 (17-59) U/L ALT 32 (21-72) U/L Alkaline Phosphatase 77 (38-126) U/L Troponin I (0.000-0.034) ng/mL Total Protein 7.9 (6.3-8.2) g/dL Albumin 4.8 (3.5-5.0) g/dL Amylase 54 (30-110) U/L Lipase <10 L (23-300) U/L Serum Alcohol 168 mg/dL 05/21/18 05/21/18 Range/Units 06:03 06:03 WBC (3.8-10.6) k/uL RBC (4.30-5.90) m/uL Hgb (13.0-17.5) gm/dL Hct (39.0-53.0) % MCV (80.0-100.0) fL MCH (25.0-35.0) pg MCHC (31.0-37.0) g/dL RDW (11.5-15.5) % Plt Count (150-450) k/uL Neutrophils % % Lymphocytes % % Monocytes % % Eosinophils % % Basophils % % Neutrophils # (1.3-7.7) k/uL Lymphocytes # (1.0-4.8) k/uL Monocytes # (0-1.0) k/uL Eosinophils # (0-0.7) k/uL Basophils # (0-0.2) k/uL PT (9.0-12.0) sec INR (<1.2) APTT (22.0-30.0) sec D-Dimer 0.27 (<0.60) mg/L FEU Sodium (137-145) mmol/L Potassium (3.5-5.1) mmol/L Chloride (98-107) mmol/L Carbon Dioxide (22-30) mmol/L Anion Gap mmol/L BUN (9-20) mg/dL Creatinine (0.66-1.25) mg/dL Est GFR (CKD-EPI)AfAm (>60 ml/min/1.73 sqM) Est GFR (CKD-EPI)NonAf (>60 ml/min/1.73 sqM) Glucose (74-99) mg/dL Calcium (8.4-10.2) mg/dL Total Bilirubin (0.2-1.3) mg/dL AST (17-59) U/L ALT (21-72) U/L Alkaline Phosphatase (38-126) U/L Troponin I <0.012 (0.000-0.034) ng/mL Total Protein (6.3-8.2) g/dL Albumin (3.5-5.0) g/dL Amylase (30-110) U/L Lipase (23-300) U/L Serum Alcohol mg/dL Disposition Clinical Impression: Chest pain Disposition: ADMITTED IP TO THIS [facility] Condition: Stable Referrals: Howard Villarreal MD [Primary Care Provider] - 1-2 days Decision to Admit Reason: Admit from EC Decision Date: 05/21/18 Decision Time: 07:37
[2018-05-21 06:21] LABS: Basophils % (A) 0 %; Eosinophils # (A) 0.1 k/uL (0-0.7); Eosinophils % (A) 1 %; HCT 45.6 % (39.0-53.0); HGB 15.4 gm/dL (13.0-17.5); Lymphocytes # (A) 2.8 k/uL (1.0-4.8); Lymphocytes % (A) 32 %; MCH 30.2 pg (25.0-35.0); MCHC 33.7 g/dL (31.0-37.0); MCV 89.5 fL (80.0-100.0); Mean Platelet Volume 7.4; Monocytes # (A) 0.4 k/uL (0-1.0); Monocytes % (A) 4 %; Neutrophils # (A) 5.3 k/uL (1.3-7.7); Neutrophils % (A) 60 %; Platelet Count 227 k/uL (150-450); RDW 13.5 % (11.5-15.5); WBC 8.8 k/uL (3.8-10.6)
[2018-05-21 06:29] LABS: Partial Thromboplastin Time 23.5 sec (22.0-30.0); Prothrombin Time 10.1 sec (9.0-12.0)
[2018-05-21 06:33] LABS: ALT 32 U/L (21-72); AST 33 U/L (17-59); Albumin 4.8 g/dL (3.5-5.0); Alkaline Phosphatase 77 U/L (38-126); Amylase 54 U/L (30-110); Anion Gap 13 mmol/L; Blood Urea Nitrogen 19 mg/dL (9-20); Calcium 9.6 mg/dL (8.4-10.2); Carbon Dioxide 23 mmol/L (22-30); Chloride 106 mmol/L (98-107); Glucose 150 mg/dL (74-99); Lipase <10 U/L (23-300); Potassium 4.3 mmol/L (3.5-5.1); Sodium 142 mmol/L (137-145); Total Bilirubin 0.5 mg/dL (0.2-1.3); Total Protein 7.9 g/dL (6.3-8.2)
[2018-05-21 06:43] LABS: Alcohol 168 mg/dL
--- NOTE | 2018-05-21 07:10 | XR ---
EXAMINATION TYPE: XR chest 2V DATE OF EXAM: 05/21/2018 HISTORY: abdominal pain. REFERENCE: Previous study dated 01/27/2018. FINDINGS: The lungs remain clear. Pleural spaces are clear. The heart is not enlarged. IMPRESSION: NORMAL CHEST.
--- NOTE | 2018-05-21 07:11 | XR ---
EXAMINATION TYPE: XR KUB , 2 VIEWS DATE OF EXAM ORDERED: 05/21/2018 HISTORY: abdominal pain. COMPARISON: Previous study dated 12/09/2017. FINDINGS: The lung bases are clear. Within the abdomen, the abdominal gas pattern is within normal limits. There is no evidence of obstru ction or free air. No unusual calcifications are seen. IMPRESSION: NO ACUTE INTRA-ABDOMINAL ABNORMALITY.
[2018-05-21] MEDS ORDERED: ASPIRIN 325 MG TAB PO STA (07:33)
[2018-05-21] MEDS ORDERED: ONDANSETRON 4 MG/2 ML VIAL IVP PRN (07:34)
[2018-05-21] MEDS ORDERED: NALOXONE 0.4 MG/ML 1 ML VIAL IV PRN (07:34)
[2018-05-21] MEDS ORDERED: ACETAMINOPHEN TAB 325 MG TAB PO PRN (07:34)
[2018-05-21] MEDS: hydrALAZINE HCL 50 MG TAB PO SCH ×3 (07:59→20:14)
[2018-05-21] MEDS: LISINOPRIL 20 MG TAB PO SCH ×2 (07:59→20:14)
[2018-05-21] MEDS: METOPROLOL TARTRATE 50 MG TAB PO SCH ×2 (07:59→20:15)
[2018-05-21] MEDS ORDERED: LORazepam 2 MG/ML INJ IV PRN ×2 (08:50)
[2018-05-21] MEDS: cloNIDine HCL 0.1 MG TAB PO SCH ×3 (10:23→20:15)
[2018-05-21] MEDS: LORazepam 2 MG/ML INJ IV PRN ×2 (10:24→16:21)
[2018-05-21 11:02] VITALS: BMI 24.4
[2018-05-21] MEDS ORDERED: MULTIVITAMINS, THERA 1 EACH TAB PO SCH (12:00)
--- NOTE | 2018-05-21 12:03 | P.CRDCN ---
History of Present Illness Consult date: 05/21/18 History of present illness: This is a 38-year-old male with history of coronary artery disease with prior stenting of the left anterior descending, hypertension and hyperlipidemia and also history of marijuana use. This patient has multiple visits to the emergency room with complaints of chest pain. In January of last year, Patient had a cardiac catheterization by Dr. Walker was found to have patent stented area in the LAD. Patient now complains of atypical fluttering sensation on the left side of the chest with some discomfort. His EKG showed sinus rhythm with T -wave changes which are chronic. The pains appear to be atypical. We'll follow his cardiac enzymes studies. If they're not size to of ischemia, medical therapy may be continued. A stress test also may be considered. Review of Systems As per the chart Past Medical History Past Medical History: Coronary Artery Disease (CAD), Diabetes Mellitus, Hyperlipidemia, Hypertension, Myocardial Infarction (LA) Additional Past Medical History / Comment(s): pancreatitis/ETOH abuse. Other hx: Recent head injury with morris now removed. Last Myocardial Infarction Date:: 2011 History of Any Multi-Drug Resistant Organisms: None Reported Past Surgical History: Heart Catheterization With Stent Additional Past Surgical History / Comment(s): [place] [facility] [place] hand sx to repair nerve/tendons d/t injury. Past Anesthesia/Blood Transfusion Reactions: No Reported Reaction Date of Last Stent Placement:: 2011 Past Psychological History: Anxiety, Bipolar, Depression Additional Psychological History / Comment(s): He does not drive, his significant other drives. There are 4 children in the home Smoking Status: Current every day smoker Past Alcohol Use History: Occasional Additional Past Alcohol Use History / Comment(s): Pt has hx of ETOH abuse. Past Drug Use History: Marijuana Additional Drug Use History / Comment(s): daily use of marijuana - Past Family History Mother Family Medical History: CVA/TIA, Diabetes Mellitus, Hypertension Additional Family Medical History / Comment(s): Mother is still living. Father Family Medical History: CVA/TIA Additional Family Medical History / Comment(s): Father is still living. Medications and Allergies Home Medications Medication Instructions Recorded Confirmed Type Aspirin EC [Ecotrin Low Dose] 81 mg PO DAILY #30 tablet. 02/11/17 01/26/18 Rx Atorvastatin [Lipitor] 80 mg PO HS 09/27/17 01/26/18 History Lisinopril [Zestril] 20 mg PO BID #60 tab 10/04/17 01/26/18 Rx Metoprolol Tartrate [Lopressor] 50 mg PO BID #60 tab 10/04/17 01/26/18 Rx cloNIDine HCL [Catapres] 0.1 mg PO TID #90 tab 10/04/17 01/26/18 Rx hydrALAZINE HCL [Apresoline] 50 mg PO TID #90 tab 10/04/17 01/26/18 Rx INSULIN LISPRO (HumaLOG) [humaLOG] 5 units SQ ACHS 12/09/17 01/26/18 History Insulin Detemir [Levemir] 22 unit SQ HS syr 02/01/18 Rx Insulin Detemir [Levemir] 40 unit SQ HS #60 syr 02/01/18 Rx Allergies Allergy/AdvReac Type Severity Reaction Status Date / Time Mushroom AdvReac Nausea & Verified 05/21/18 05:54 Vomiting shellfish derived [Shellfish] AdvReac Nausea & Verified 05/21/18 05:54 Vomiting Physical Exam Vitals: Vital Signs Temp Pulse Pulse Resp BP BP Pulse Ox 05/21/18 10:30 18 05/21/18 10:22 178/125 05/21/18 08:27 98.3 F 75 18 162/101 98 05/21/18 08:26 98.3 F 83 18 196/123 98 05/21/18 07:30 76 16 168/107 98 05/21/18 06:14 84 177/111 97 05/21/18 05:51 98.9 F 103 H 18 166/119 97 Intake and Output 05/20/18 05/21/18 05/21/18 22:59 06:59 14:59 Other: Weight 79.379 kg 79.379 kg GENERAL EXAM: Patient is alert and oriented and doesn't appear to be in any acute distress HEENT: Normocephalic. Normal reaction of pupils, equal size, normal range of extraocular motion. No erythema or exudates in the throat. NECK: No masses, no nuchal rigidity. CHEST: No chest wall deformity. LUNGS: [Equal air entry with no crackles or wheeze.] HEART: [S1 and S2 normal with no audible mumurs or gallops. Regular rhythm, femorals equal on both sides..] ABDOMEN: No hepatosplenomegaly, normal bowel sounds, no guarding or rigidity. SKIN: No rashes CENTRAL NERVOUS SYSTEM: No focal deficits. EXTREMITIES: [No cyanosis, clubbing or edema.] Results 05/21/18 06:03 05/21/18 06:03 Cardiac Enzymes 05/21/18 05/21/18 Range/Units 06:03 06:03 AST 33 (17-59) U/L Troponin I <0.012 (0.000-0.034) ng/mL Coagulation 05/21/18 Range/Units 06:03 PT 10.1 (9.0-12.0) sec APTT 23.5 (22.0-30.0) sec CBC 05/21/18 Range/Units 06:03 WBC 8.8 (3.8-10.6) k/uL RBC 5.10 (4.30-5.90) m/uL Hgb 15.4 (13.0-17.5) gm/dL Hct 45.6 (39.0-53.0) % Plt Count 227 (150-450) k/uL Comprehensive Metabolic Panel 05/21/18 Range/Units 06:03 Sodium 142 (137-145) mmol/L Potassium 4.3 (3.5-5.1) mmol/L Chloride 106 (98-107) mmol/L Carbon Dioxide 23 (22-30) mmol/L BUN 19 (9-20) mg/dL Creatinine 1.10 (0.66-1.25) mg/dL Glucose 150 H (74-99) mg/dL Calcium 9.6 (8.4-10.2) mg/dL AST 33 (17-59) U/L ALT 32 (21-72) U/L Alkaline Phosphatase 77 (38-126) U/L Total Protein 7.9 (6.3-8.2) g/dL Albumin 4.8 (3.5-5.0) g/dL Current Medications Generic Name Dose Route Start Last Admin Trade Name Freq PRN Reason Stop Dose Admin Acetaminophen 650 mg 05/21/18 07:34 Tylenol Tab PO Q6HR PRN Mild Pain or Fever > 100.5 Aspirin 81 mg 05/22/18 09:00 Aspirin PO DAILY [facility] Atorvastatin Calcium 80 mg 05/21/18 21:00 Lipitor PO HS ENMA Clonidine 0.1 mg 05/21/18 09:00 05/21/18 10:23 Catapres PO 0.1 mg TID ENMA Administration Hydralazine HCl 50 mg 05/21/18 09:00 05/21/18 07:59 Apresoline PO 50 mg TID ENMA Administration Lisinopril 20 mg 05/21/18 09:00 05/21/18 07:59 Zestril PO 20 mg BID ENMA Administration Lorazepam 1 mg 05/21/18 08:50 05/21/18 10:24 Ativan IV 1 mg Q2HR PRN Administration CIWA 8 or 9 Lorazepam 1 mg 05/21/18 08:50 Ativan IV Q1HR PRN CIWA 10 to 15 Lorazepam 2 mg 05/21/18 08:50 Ativan IV 05/23/18 08:50 Q10M PRN CIWA 16 or higher Metoprolol Tartrate 50 mg 05/21/18 09:00 05/21/18 07:59 Lopressor PO 50 mg BID ENMA Administration Multivitamins 1 each 05/21/18 12:00 Theragran PO DAILY@1200 ENMA Naloxone HCl 0.2 mg 05/21/18 07:34 Narcan IV Q2M PRN Opioid Reversal Ondansetron HCl 4 mg 05/21/18 07:34 Zofran IVP Q8HR PRN Nausea And Vomiting Thiamine HCl 100 mg 05/21/18 12:00 Vitamin B-1 PO BID@1200,1700 ENMA Intake and Output 05/20/18 05/21/18 05/21/18 22:59 06:59 14:59 Other: Weight 79.379 kg 79.379 kg Patient Weight 05/22/18 06:59 Weight 79.379 kg 05/21/18 06:03 05/21/18 06:03 EKG Interpretations (text) Sinus rhythm with nonspecific T-wave changes which are chronic Assessment and Plan (1) History of coronary artery disease Current Visit: Yes Status: Acute Code(s): Z86.79 - PERSONAL HISTORY OF OTHER DISEASES OF THE CIRCULATORY SYSTEM SNOMED Code(s): 922589005 (2) Chest pain Current Visit: Yes Status: Acute Code(s): R07.9 - CHEST PAIN, UNSPECIFIED SNOMED Code(s): 84498864 (3) History of hypertension Current Visit: Yes Status: Acute Code(s): Z86.79 - PERSONAL HISTORY OF OTHER DISEASES OF THE CIRCULATORY SYSTEM SNOMED Code(s): 482594874 Plan: He chest pains appear to be atypical. EKG shows chronic nonspecific T-wave changes. Patient has multiple visits to ER with atypical chest pain. Cardiac cath from last year was are suggestive of any progression of ischemic heart disease with a patent stent in the LAD. If enzymes are negative, medical therapy to be continued. An outpatient stress test also could be constricted and follow-up with Dr. Pan
[2018-05-21 12:45] LABS: Creatine Kinase MB 1.2 ng/mL (0.0-2.4); Troponin I 0.017 ng/mL (0.000-0.034)
[2018-05-21] MEDS: THIAMINE 100 MG TAB PO SCH ×2 (13:25→17:43)
[2018-05-21] MEDS: NICOTINE 21MG/24HR PATCH TRANSDERM SCH (15:49)
[2018-05-21 17:16] LABS: Glucose,Whole Blood 179 mg/dL (75-99)
[2018-05-21] MEDS: INSULIN ASPART 100 UNIT/ML 1 ML 10 ML VIAL SQ SCH ×2 (17:43→20:57)
[2018-05-21 18:33] LABS: Creatine Kinase 165 U/L (55-170)
[2018-05-21 18:47] LABS: Creatine Kinase MB 0.9 ng/mL (0.0-2.4); Troponin I <0.012 ng/mL (0.000-0.034)
[2018-05-21 20:25] LABS: Glucose,Whole Blood 170 mg/dL (75-99)
[2018-05-21] MEDS ORDERED: ATORVASTATIN 80 MG TAB PO SCH (21:00)
--- NOTE | 2018-05-21 22:08 | P.HPIM ---
History of Present Illness H&P Date: 05/21/18 Chief Complaint: Chest pain Patient is a 38-year-old male with a known history of hypertension, diabetes type 2, coronary artery disease with history of stent placement and LA as well as alcohol abuse and marijuana use came to ER with complaints of chest pain. Patient has multiple admissions with similar complaints. Patient was alcohol intoxicated on admission with alcohol level of 168. Patient had had a catheterization in January 2018 and was found have patent stented area in the LAD. Chest pain in the left retrosternal and associated with some shortness of breath. No radiation. Patient does have nausea and vomiting. no diaphoresis. troponin 2 negative alcohol level 168 EKG showed normal sinus rhythm and chest x-ray is negative Review of Systems Constitutional: Patient denies any fever or chills . No generalized weakness or weight loss. Abdomen: Patient denied nausea vomiting and diarrhea and abdominal pain. Cardiovascular: Patient denies any chest pain or short of breath no palpitations. Respiratory: patient denied any cough is from production. No shortness of breath Neurologic: Patient denied any numbness or tingling headache. Musculoskeletal: Patient denies any complaints of joint swelling or deformity. Skin: Negative Psychiatric: Negative Endocrine: No heat or cold intolerance. No recent weight gain. Genitourinary: No dysuria or hematuria. All other 14 point ROS negative except the above Past Medical History Past Medical History: Coronary Artery Disease (CAD), Diabetes Mellitus, Hyperlipidemia, Hypertension, Myocardial Infarction (LA) Additional Past Medical History / Comment(s): pancreatitis/ETOH abuse. Other hx: Recent head injury with morris now removed. Last Myocardial Infarction Date:: 2011 History of Any Multi-Drug Resistant Organisms: None Reported Past Surgical History: Heart Catheterization With Stent Additional Past Surgical History / Comment(s): PCI with stent at [facility] [place]1996 had rt hand sx to repair nerve/tendons d/t injury. Past Anesthesia/Blood Transfusion Reactions: No Reported Reaction Date of Last Stent Placement:: 2011 Past Psychological History: Anxiety, Bipolar, Depression Additional Psychological History / Comment(s): He does not drive, his significant other drives. There are 4 children in the home Smoking Status: Current every day smoker Past Alcohol Use History: Occasional Additional Past Alcohol Use History / Comment(s): Pt has hx of ETOH abuse. Past Drug Use History: Marijuana Additional Drug Use History / Comment(s): daily use of marijuana - Past Family History Mother Family Medical History: CVA/TIA, Diabetes Mellitus, Hypertension Additional Family Medical History / Comment(s): Mother is still living. Father Family Medical History: CVA/TIA Additional Family Medical History / Comment(s): Father is still living. Medications and Allergies Home Medications Medication Instructions Recorded Confirmed Type Aspirin EC [Ecotrin Low Dose] 81 mg PO DAILY #30 tablet. 02/11/17 05/21/18 Rx INSULIN LISPRO (HumaLOG) [humaLOG] See Protocol SQ ACHS 12/09/17 05/21/18 History Allergies Allergy/AdvReac Type Severity Reaction Status Date / Time Mushroom AdvReac Nausea & Verified 05/21/18 13:16 Vomiting shellfish derived [Shellfish] AdvReac Nausea & Verified 05/21/18 13:16 Vomiting Physical Exam Vitals: Vital Signs Temp Pulse Pulse Resp BP BP Pulse Ox 05/21/18 12:00 98.3 F 71 16 142/85 96 05/21/18 10:30 18 05/21/18 10:22 178/125 05/21/18 08:27 98.3 F 75 18 162/101 98 05/21/18 08:26 98.3 F 83 18 196/123 98 05/21/18 07:30 76 16 168/107 98 05/21/18 06:14 84 177/111 97 05/21/18 05:51 98.9 F 103 H 18 166/119 97 Intake and Output 05/20/18 05/21/18 05/21/18 22:59 06:59 14:59 Other: Weight 79.379 kg 79.379 kg PHYSICAL EXAMINATION: Patient is lying in the bed comfortably, no acute distress, awake alert and oriented.. HEENT: Normocephalic. Neck is supple. Pupils reactive. Nostrils clear. Oral cavity is moist. Ears reveal no drainage. Neck reveals no JVD, carotid bruits, or thyromegaly. CHEST EXAMINATION: Trachea is central. Symmetrical expansion. Lung gunter clear to auscultation and percussion. CARDIAC: Normal S1, S2 with no gallops. No murmurs ABDOMEN: Soft. Bowel sounds normal. No organomegaly. No abdominal bruits. Extremities: reveal no edema. No clubbing or cyanosis Neurologically awake, alert, oriented x3 with well-coordinated movements. No focal deficits noted Skin: No rash or skin lesions. Psychiatric: Coperative. Nonsuicidal Musculoskeletal: No joint swelling or deformity. Normal range of motion. Results CBC & Chem 7: 05/21/18 06:03 05/21/18 06:03 Labs: Abnormal Lab Results - Last 24 Hours (Table) 05/21/18 Range/Units 06:03 Glucose 150 H (74-99) mg/dL Lipase <10 L (23-300) U/L Thrombosis Risk Factor Assmnt - DVT/VTE Prophylaxis DVT/VTE Prophylaxis: Pharmacologic Prophylaxis ordered Assessment and Plan Assessment: Atypical chest pain. Ruled out acute coronary syndrome Acute alcoholic intoxication on admission History of coronary artery disease with stent stent placement to LAD. Most recent cardiac cath in January 2018 showed patent stents. Uncontrolled hypertension Diabetes type 2 History of LA Alcohol abuse and marijuana use an daily basis Anxiety depression and bipolar disorder DVT prophylaxis Plan: Patient will be continued on telemetry monitoring. Serial EKG and troponin. Cardiology consultation. Recommended medical management will continue the symptomatic management for nausea and vomiting and monitor for any alcohol withdrawal symptoms. Will follow up closely and anticipate discharge tomorrow with marked clinical improvement. Counseled extensively for smoking cessation and marijuana use as well as alcohol abuse. Time with Patient: Greater than 30
[2018-05-22 06:39] LABS: Glucose,Whole Blood 241 mg/dL (75-99)
[2018-05-22] MEDS: LORazepam 2 MG/ML INJ IV PRN (08:04)
[2018-05-22 08:12] VITALS: RESP 18
[2018-05-22] MEDS ORDERED: FAMOTIDINE 20 MG TAB PO SCH (09:00)
[2018-05-22] MEDS ORDERED: ASPIRIN 81 MG PO SCH (09:00)
[2018-05-22] MEDS: NICOTINE 21MG/24HR PATCH TRANSDERM SCH (09:29)
[2018-05-22] MEDS: LISINOPRIL 20 MG TAB PO SCH (09:29)
[2018-05-22] MEDS: cloNIDine HCL 0.1 MG TAB PO SCH (09:29)
[2018-05-22] MEDS: METOPROLOL TARTRATE 50 MG TAB PO SCH (09:29)
[2018-05-22] MEDS: INSULIN ASPART 100 UNIT/ML 1 ML 10 ML VIAL SQ SCH (09:29)
[2018-05-22] MEDS: hydrALAZINE HCL 50 MG TAB PO SCH (09:45)
--- NOTE | 2018-05-22 10:25 | P.PN ---
Subjective Mr. Briceno is seen and examined resting comfortably in bed in no acute distress. He denies any further symptoms of chest discomfort since admission. Cardiac enzymes negative x3, telemetry tracings unremarkable. Cardiac catheterization performed January 2017 reveals a patent stent in the proximal LAD with no other coronary artery disease noted. Blood pressure 147/99 heart rate 52 afebrile and maintaining oxygen saturations on room air. Objective - Vital Signs Vital signs: Vital Signs Temp 98.4 F 05/22/18 08:59 Pulse 52 L 05/22/18 08:59 Resp 18 05/22/18 08:59 BP 147/99 05/22/18 08:59 Pulse Ox 99 05/22/18 08:59 Intake & Output 05/21/18 05/22/18 05/22/18 18:59 06:59 18:59 Intake Total 240 Balance 240 Weight 79.379 kg 79.379 kg Intake: Oral 240 Other: Voiding Method Toilet Toilet Toilet - Exam GENERAL: Well-appearing, well-nourished and in no acute distress. NECK: Supple without JVD or thyromegaly. LUNGS: Breath sounds clear to auscultation bilaterally. Respiration equal and unlabored. No wheezes, rales or rhonchi. HEART: Regular rate and rhythm without murmurs, rubs or gallops. S1 and S2 heard. EXTREMITIES: Normal range of motion, no edema. No clubbing or cyanosis. Peripheral pulses intact. - Labs CBC & Chem 7: 05/21/18 06:03 05/21/18 06:03 Labs: Abnormal Lab Results - Last 24 Hours (Table) 05/21/18 05/21/18 05/21/18 Range/Units 12:01 17:13 20:13 POC Glucose (mg/dL) 179 H 170 H (75-99) mg/dL Total Creatine Kinase 212 H (55-170) U/L 05/22/18 Range/Units 06:36 POC Glucose (mg/dL) 241 H (75-99) mg/dL Total Creatine Kinase (55-170) U/L Assessment and Plan Assessment: ASSESSMENT Chest pain, atypical. An acute coronary event has been ruled out with no EKG evidence of ischemia and normal cardiac enzymes. Recent heart cath revealed patent stent to LAD and no other obstructive CAD. History of coronary artery disease hypertension Dyslipidemia Diabetes mellitus History of chronic alcohol abuse Chronic nicotine dependence PLAN Stable from a cardiac perspective. Follow up with Dr. Baltazar in 2 weeks. Smoking cessation recommended. Nurse Practitioner note has been reviewed, I agree with a documented findings and plan of care. Patient was seen and examined.
[2018-05-22 12:02] VITALS: BP 153/97; PULSE 56; TEMP 98.6
[2018-05-22 12:09] LABS: Glucose,Whole Blood 159 mg/dL (75-99)
[2018-05-22 12:45] LABS: Hemoglobin A1C 9.8 % (4.0-6.0)
--- NOTE | 2018-05-22 18:22 | HP ---
HISTORY AND PHYSICAL Patient was admitted in my absence and seen by my designate. I have seen this patient before on an inpatient basis, but not in the office setting. I will redictate a brief note regarding my history with the patient. MMODL / IJN: [id number] /
--- NOTE | 2018-05-25 18:19 | DS ---
DISCHARGE SUMMARY DATE OF DISCHARGE: 05/22/2018 CHIEF COMPLAINT: Chest pain. HISTORY OF PRESENT ILLNESS AND PHYSICAL EXAM: Details of this man's history and physical can be found in the initial workup. LABORATORY STUDIES: While he was in a hospital, he had laboratory studies, details which can be found in the laboratory section of chart. COURSE IN HOSPITAL: After admission, he was placed on bedrest, started on intravenous fluids and he had normal cardiac enzymes without changes in EKG. Blood pressure was quite high and he was beginning to respond. It was felt he could be discharged on the after he was seen by Cardiology and he will follow up in the office. FINAL DIAGNOSES: 1. Chest pain. 2. Hypertension. OPERATIONS: None. CONSULTATION: Cardiology. He is improved. MMODL / IJN: [id number] /
== END 2018-05-22 13:38 | disposition home or self-care (01) ==
LOC: EC 05:36 → 3SUR 07:34 → 3OBS 05-22 07:00
PROVIDERS: ADMIT Family Medicine; ATTEND Family Medicine
DX: R07.89 Other chest pain (principal); I10 Essential (primary) hypertension; F10.129 Alcohol abuse with intoxication, unspecified; R10.9 Unspecified abdominal pain; R11.2 Nausea with vomiting, unspecified; E11.9 Type 2 diabetes mellitus without complications; I25.10 Atherosclerotic heart disease of native coronary artery without angina pectoris; R61 Generalized hyperhidrosis; F17.200 Nicotine dependence, unspecified, uncomplicated; E78.5 Hyperlipidemia, unspecified; F31.9 Bipolar disorder, unspecified; F41.9 Anxiety disorder, unspecified; F12.90 Cannabis use, unspecified, uncomplicated; Y90.6 Blood alcohol level of 120-199 mg/100 ml; Z95.5 Presence of coronary angioplasty implant and graft; I25.2 Old myocardial infarction; Z79.82 Long term (current) use of aspirin; Z79.4 Long term (current) use of insulin; Z79.899 Other long term (current) drug therapy; Z91.013 Allergy to seafood; Z91.018 Allergy to other foods; Z87.828 Personal history of other (healed) physical injury and trauma; Z87.19 Personal history of other diseases of the digestive system; Z83.3 Family history of diabetes mellitus; Z82.49 Family history of ischemic heart disease and other diseases of the circulatory system; Z82.3 Family history of stroke
CPT/HCPCS: 99285 ×2; 96361 ×4; 96374; 96376 ×2; 36415; 93005; 85379; 80053; 82150; 82550; 82553; 83690; 84484; 85025; 85610; 85730; 80320; 83036; 71046; 74018; G0378 ×2; S4990 ×2; J2060 ×2

== ENCOUNTER 2018-08-19 03:46 | Inpatient (IN) | payer OTHER ==
[2018-08-19] MEDS ORDERED: SODIUM CHLORIDE 0.9% 500 ML 500 ML IV STA (03:51)
[2018-08-19] MEDS ORDERED: ONDANSETRON 4 MG/2 ML VIAL IVP STA (03:51)
[2018-08-19] MEDS ORDERED: MORPHINE SULFATE 4 MG/ML SYRINGE IV STA (03:51)
[2018-08-19] MEDS ORDERED: SODIUM CHLORIDE 0.9% 1,000 ML IV STA ×2 (03:51)
[2018-08-19] MEDS ORDERED: LORazepam 2 MG/ML INJ IV STA (03:52)
--- NOTE | 2018-08-19 03:52 | ED ---
Abdominal Pain HPI - General Stated Complaint: Abd Pain Time Seen by Provider: 08/19/18 03:51 Source: RN notes reviewed, old records reviewed - History of Present Illness Initial Comments: This is a 38-year-old male the ER for evaluation. History of diabetes history of alcohol abuse history of pancreatitis. Patient coming in with combination of all 3. Does not feel well writhing in pain. Patient states he cannot catch his breath he feels weak lightheaded and dizzy very dehydrated. Severe abdominal pain with nausea and vomiting. MD Complaint: abdominal pain -: hour(s) Location: diffuse, periumbilical Radiation: epigastric Migration to: no migration Severity: severe Severity scale (1-10): 10 Quality: cramping, stabbing, aching Consistency: constant Improves With: nothing Worsens With: nothing Associated Symptoms: nausea, vomiting - Related Data Home Medications Medication Instructions Recorded Confirmed INSULIN LISPRO (HumaLOG) [humaLOG] See Protocol SQ ACHS 12/09/17 05/21/18 Previous Rx's Medication Instructions Recorded Aspirin EC [Ecotrin Low Dose] 81 mg PO DAILY #30 tablet. 02/11/17 Atorvastatin [Lipitor] 80 mg PO HS #10 tab 05/22/18 Lisinopril [Zestril] 40 mg PO DAILY 10 Days #10 tab 05/22/18 Allergies Allergy/AdvReac Type Severity Reaction Status Date / Time Mushroom AdvReac Nausea & Verified 05/21/18 13:16 Vomiting shellfish derived [Shellfish] AdvReac Nausea & Verified 05/21/18 13:16 Vomiting Review of Systems ROS Statement: Those systems with pertinent positive or pertinent negative responses have been documented in the HPI. ROS Other: All systems not noted in ROS Statement are negative. Past Medical History Past Medical History: Coronary Artery Disease (CAD), Diabetes Mellitus, Hyperlipidemia, Hypertension, Myocardial Infarction ([place]) Additional Past Medical History / Comment(s): pancreatitis/ETOH abuse. Other hx: Recent head injury with morris now removed. Last Myocardial Infarction Date:: 2011 History of Any Multi-Drug Resistant Organisms: None Reported Past Surgical History: Heart Catheterization With Stent Additional Past Surgical History / Comment(s): [place] [facility] [place] hand sx to repair nerve/tendons d/t injury. Past Anesthesia/Blood Transfusion Reactions: No Reported Reaction Date of Last Stent Placement:: 2011 Past Psychological History: Anxiety, Bipolar, Depression Additional Psychological History / Comment(s): He does not drive, his significant other drives. There are 4 children in the home Smoking Status: Current every day smoker Past Alcohol Use History: Occasional Additional Past Alcohol Use History / Comment(s): Pt has hx of ETOH abuse. Past Drug Use History: Marijuana Additional Drug Use History / Comment(s): daily use of marijuana - Past Family History Mother Family Medical History: CVA/TIA, Diabetes Mellitus, Hypertension Additional Family Medical History / Comment(s): Mother is still living. Father Family Medical History: CVA/TIA Additional Family Medical History / Comment(s): Father is still living. General Exam General appearance: alert, appears intoxicated, anxious Head exam: Present: atraumatic, normocephalic, normal inspection Eye exam: Present: normal appearance, PERRL, EOMI. Absent: scleral icterus, conjunctival injection, periorbital swelling ENT exam: Present: normal exam, mucous membranes moist Neck exam: Present: normal inspection. Absent: tenderness, meningismus, lymphadenopathy Respiratory exam: Present: normal lung sounds bilaterally. Absent: respiratory distress, wheezes, rales, rhonchi, stridor Cardiovascular Exam: Present: regular rate, normal rhythm, normal heart sounds. Absent: systolic murmur, diastolic murmur, rubs, gallop, clicks GI/Abdominal exam: Present: soft, normal bowel sounds. Absent: distended, tenderness, guarding, rebound, rigid Extremities exam: Present: normal inspection, full ROM, normal capillary refill. Absent: tenderness, pedal edema, joint swelling, calf tenderness Back exam: Present: normal inspection Neurological exam: Present: alert, oriented X3, CN II-XII intact Psychiatric exam: Present: normal affect, normal mood Skin exam: Present: warm, dry, intact, normal color. Absent: rash Course Vital Signs 08/19/18 03:55 Temperature 98.6 F Pulse Rate 99 Respiratory 26 H Rate Blood Pressure 142/124 O2 Sat by Pulse 99 Oximetry - Reevaluation(s) Reevaluation #1: 08/19/18 06:28 Record is reviewed multiple ER visits for same Reevaluation #2: 08/19/18 06:28 Patient symptoms are much improved Medical Decision Making - Medical Decision Making 38 male the ER for evaluation of significant nausea vomiting abdominal pain, positive recurrent pancreatitis, positive DKA. Patient be admitted for blood sugar control rehydration and symptom management - Lab Data Result diagrams: 08/19/18 03:50 08/19/18 03:50 Lab Results 08/19/18 08/19/18 08/19/18 Range/Units 03:50 03:50 03:50 WBC 17.9 H (3.8-10.6) k/uL RBC 5.38 (4.30-5.90) m/uL Hgb 16.2 (13.0-17.5) gm/dL Hct 48.7 (39.0-53.0) % MCV 90.5 (80.0-100.0) fL MCH 30.1 (25.0-35.0) pg MCHC 33.3 (31.0-37.0) g/dL RDW 13.8 (11.5-15.5) % Plt Count 177 (150-450) k/uL Neutrophils % 88 % Lymphocytes % 7 % Monocytes % 3 % Eosinophils % 1 % Basophils % 0 % Neutrophils # 15.9 H (1.3-7.7) k/uL Lymphocytes # 1.3 (1.0-4.8) k/uL Monocytes # 0.6 (0-1.0) k/uL Eosinophils # 0.1 (0-0.7) k/uL Basophils # 0.0 (0-0.2) k/uL PT (9.0-12.0) sec INR (<1.2) APTT (22.0-30.0) sec Sodium 136 L (137-145) mmol/L Potassium 3.5 (3.5-5.1) mmol/L Chloride 101 (98-107) mmol/L Carbon Dioxide 15 L (22-30) mmol/L Anion Gap 20 mmol/L BUN 10 (9-20) mg/dL Creatinine 0.85 (0.66-1.25) mg/dL Est GFR (CKD-EPI)AfAm >90 (>60 ml/min/1.73 sqM) Est GFR (CKD-EPI)NonAf >90 (>60 ml/min/1.73 sqM) Glucose 318 H (74-99) mg/dL Plasma Lactic Acid Reagan (0.7-2.0) mmol/L Calcium 9.8 (8.4-10.2) mg/dL Phosphorus 4.9 H (2.5-4.5) mg/dL Magnesium 1.7 (1.6-2.3) mg/dL Total Bilirubin 0.6 (0.2-1.3) mg/dL AST 45 (17-59) U/L ALT 40 (21-72) U/L Alkaline Phosphatase 102 (38-126) U/L Total Creatine Kinase 182 H (55-170) U/L CK-MB (CK-2) 0.5 (0.0-2.4) ng/mL CK-MB (CK-2) Rel Index 0.3 Troponin I 0.017 (0.000-0.034) ng/mL Total Protein 7.8 (6.3-8.2) g/dL Albumin 4.6 (3.5-5.0) g/dL Lipase 2413 H (23-300) U/L Urine Color Urine Appearance (Clear) Urine pH (5.0-8.0) Ur Specific Benton (1.001-1.035) Urine Protein (Negative) Urine Glucose (UA) (Negative) Urine Ketones (Negative) Urine Blood (Negative) Urine Nitrite (Negative) Urine Bilirubin (Negative) Urine Urobilinogen (<2.0) mg/dL Ur Leukocyte Esterase (Negative) Urine RBC (0-5) /hpf Urine WBC (0-5) /hpf Hyaline Casts (0-2) /lpf Urine Mucus (None) /hpf Acetone, Qual Positive (Negative) 08/19/18 08/19/18 08/19/18 Range/Units 03:50 03:50 04:50 WBC (3.8-10.6) k/uL RBC (4.30-5.90) m/uL Hgb (13.0-17.5) gm/dL Hct (39.0-53.0) % MCV (80.0-100.0) fL MCH (25.0-35.0) pg MCHC (31.0-37.0) g/dL RDW (11.5-15.5) % Plt Count (150-450) k/uL Neutrophils % % Lymphocytes % % Monocytes % % Eosinophils % % Basophils % % Neutrophils # (1.3-7.7) k/uL Lymphocytes # (1.0-4.8) k/uL Monocytes # (0-1.0) k/uL Eosinophils # (0-0.7) k/uL Basophils # (0-0.2) k/uL PT 10.6 (9.0-12.0) sec INR 1.1 (<1.2) APTT 23.0 (22.0-30.0) sec Sodium (137-145) mmol/L Potassium (3.5-5.1) mmol/L Chloride (98-107) mmol/L Carbon Dioxide (22-30) mmol/L Anion Gap mmol/L BUN (9-20) mg/dL Creatinine (0.66-1.25) mg/dL Est GFR (CKD-EPI)AfAm (>60 ml/min/1.73 sqM) Est GFR (CKD-EPI)NonAf (>60 ml/min/1.73 sqM) Glucose (74-99) mg/dL Plasma Lactic Acid Reagan 1.8 (0.7-2.0) mmol/L Calcium (8.4-10.2) mg/dL Phosphorus (2.5-4.5) mg/dL Magnesium (1.6-2.3) mg/dL Total Bilirubin (0.2-1.3) mg/dL AST (17-59) U/L ALT (21-72) U/L Alkaline Phosphatase (38-126) U/L Total Creatine Kinase (55-170) U/L CK-MB (CK-2) (0.0-2.4) ng/mL CK-MB (CK-2) Rel Index Troponin I (0.000-0.034) ng/mL Total Protein (6.3-8.2) g/dL Albumin (3.5-5.0) g/dL Lipase (23-300) U/L Urine Color Yellow Urine Appearance Clear (Clear) Urine pH 5.5 (5.0-8.0) Ur Specific Benton 1.034 (1.001-1.035) Urine Protein 1+ H (Negative) Urine Glucose (UA) 4+ H (Negative) Urine Ketones 4+ H (Negative) Urine Blood Negative (Negative) Urine Nitrite Negative (Negative) Urine Bilirubin Negative (Negative) Urine Urobilinogen <2.0 (<2.0) mg/dL Ur Leukocyte Esterase Negative (Negative) Urine RBC <1 (0-5) /hpf Urine WBC 1 (0-5) /hpf Hyaline Casts 3 H (0-2) /lpf Urine Mucus Rare H (None) /hpf Acetone, Qual (Negative) - EKG Data -: EKG Interpreted by Me (Nauseous chest x-ray EKG shows normal sinus rhythm rate of 76, MI 150, QRS ) Critical Care Time Critical Care Time: Yes Total Critical Care Time: 31 Disposition Clinical Impression: Alcoholic pancreatitis, DKA (diabetic ketoacidoses), Acute on chronic pancreatitis Disposition: ADMITTED IP TO THIS HOSP Condition: Serious Is patient prescribed a controlled substance at d/c from ED?: No
[2018-08-19 04:14] LABS: Basophils % (A) 0 %; Eosinophils # (A) 0.1 k/uL (0-0.7); Eosinophils % (A) 1 %; HCT 48.7 % (39.0-53.0); HGB 16.2 gm/dL (13.0-17.5); Lymphocytes # (A) 1.3 k/uL (1.0-4.8); Lymphocytes % (A) 7 %; MCH 30.1 pg (25.0-35.0); MCHC 33.3 g/dL (31.0-37.0); MCV 90.5 fL (80.0-100.0); Mean Platelet Volume 7.7; Monocytes # (A) 0.6 k/uL (0-1.0); Monocytes % (A) 3 %; Neutrophils # (A) 15.9 k/uL (1.3-7.7); Neutrophils % (A) 88 %; Platelet Count 177 k/uL (150-450); RBC 5.38 m/uL (4.30-5.90); RDW 13.8 % (11.5-15.5); WBC 17.9 k/uL (3.8-10.6)
[2018-08-19 04:23] LABS: INR 1.1 (<1.2); Prothrombin Time 10.6 sec (9.0-12.0)
[2018-08-19 04:27] LABS: ALT 40 U/L (21-72); AST 45 U/L (17-59); Albumin 4.6 g/dL (3.5-5.0); Alkaline Phosphatase 102 U/L (38-126); Anion Gap 20 mmol/L; Blood Urea Nitrogen 10 mg/dL (9-20); Calcium 9.8 mg/dL (8.4-10.2); Carbon Dioxide 15 mmol/L (22-30); Chloride 101 mmol/L (98-107); Glucose 318 mg/dL (74-99); Magnesium 1.7 mg/dL (1.6-2.3); Phosphorus 4.9 mg/dL (2.5-4.5); Potassium 3.5 mmol/L (3.5-5.1); Sodium 136 mmol/L (137-145); Total Bilirubin 0.6 mg/dL (0.2-1.3); Total Protein 7.8 g/dL (6.3-8.2)
[2018-08-19 04:42] LABS: Lipase 2413 U/L (23-300)
[2018-08-19 04:53] LABS: Creatine Kinase MB 0.5 ng/mL (0.0-2.4); Troponin I 0.017 ng/mL (0.000-0.034)
[2018-08-19 05:37] LABS: Appearance,Urine Clear (Clear); Bilirubin,Urine Negative (Negative); Blood,Urine Negative (Negative); Color,Urine Yellow; Glucose,Urine (UA) 4+ (Negative); Hyaline Casts,Urine 3 /lpf (0-2); Leukocyte Esterase,Urine Negative (Negative); Mucus,Urine Rare /hpf; Nitrite,Urine Negative (Negative); PH, Urine 5.5 (5.0-8.0); Protein,Urine 1+ (Negative); RBC,Urine <1 /hpf (0-5); Specific Gravity,Urine 1.034 (1.001-1.035); Urobilinogen,Urine <2.0 mg/dL (<2.0); WBC,Urine 1 /hpf (0-5)
[2018-08-19] MEDS ORDERED: SODIUM CHLORIDE 0.9% 1,000 ML IV ONE (05:53)
[2018-08-19] MEDS ORDERED: HYDROmorphone 1 MG/ML 1 ML SYRINGE IVP STA (06:11)
[2018-08-19] MEDS ORDERED: diphenhydrAMINE 50 MG/ML 1 ML VIAL IVP STA (06:11)
[2018-08-19 06:19] LABS: Ketones,Urine 4+ (Negative)
[2018-08-19] MEDS: INSULIN REGULAR 100 UNIT in SODIUM CHLORIDE 0.9% 100 ML IV SCH ×2 (06:35→20:31)
[2018-08-19 06:43] LABS: Glucose,Whole Blood 303 mg/dL (75-99)
[2018-08-19 07:42] LABS: Glucose,Whole Blood 194 mg/dL (75-99)
[2018-08-19 08:53] LABS: Anion Gap 13 mmol/L; Blood Urea Nitrogen 10 mg/dL (9-20); Carbon Dioxide 21 mmol/L (22-30); Chloride 107 mmol/L (98-107); Glucose 161 mg/dL (74-99); Phosphorus 3.4 mg/dL (2.5-4.5); Potassium 3.2 mmol/L (3.5-5.1); Sodium 141 mmol/L (137-145)
[2018-08-19] MEDS: D5-0.45% NACL WITH KCL 20MEQ/L 1,000 ML IV SCH ×3 (08:54→21:57)
[2018-08-19 09:00] LABS: Glucose,Whole Blood 81 mg/dL (75-99)
[2018-08-19 09:39] LABS: Glucose,Whole Blood 109 mg/dL (75-99)
[2018-08-19] MEDS ORDERED: NICOTINE 21MG/24HR PATCH TRANSDERM STA (09:44)
[2018-08-19] MEDS: MORPHINE SULFATE 4 MG/ML SYRINGE IVP PRN ×4 (09:48→23:26)
[2018-08-19] MEDS: LORazepam 2 MG/ML INJ IV PRN ×3 (09:53→16:33)
[2018-08-19] MEDS: SODIUM CHLORIDE 0.9% 1,000 ML IV SCH ×2 (10:00→21:38)
[2018-08-19] MEDS ORDERED: cloNIDine HCL 0.1 MG TAB PO SCH (10:30)
[2018-08-19 10:50] LABS: Glucose,Whole Blood 152 mg/dL (75-99)
--- NOTE | 2018-08-19 10:51 | US ---
EXAMINATION TYPE: US gallbladder DATE OF EXAM: 08/19/2018 COMPARISON: Previous study dated 09/28/2017. CLINICAL HISTORY: pancreatitis. EXAM MEASUREMENTS: Liver Length: 14.9cm cm Gallbladder Wall: 0.2 cm CBD: 0.5 cm Right Kidney: 10.6 x 4.6 x 5.3 cm Pancreas: Obscured by bowel gas Liver: wnl Gallbladder: wnl, fundal foldl Evidence for sonographic Marquez's sign: no CBD: wnl Right Kidney: wnl The pancreas is not well-visualized. The liver is normal in size without biliary dilatation. The gallbladder is unremarkable. The gallbladder wall measures 2 mm. The distal common hepatic duct m easures 5 mm. There is no sonographic Marquez's sign. Right kidney is unremarkable. IMPRESSION: 1. POOR VISUALIZATION OF THE PANCREAS. 2. NO OTHER DEFINITE ACUTE ABNORMALITY.
[2018-08-19 11:48] LABS: Glucose,Whole Blood 140 mg/dL (75-99)
[2018-08-19] MEDS: hydrALAZINE HCL 20 MG/ML 1 ML VIAL IVP PRN ×2 (11:49→20:00)
[2018-08-19 12:04] LABS: Anion Gap 12 mmol/L; Blood Urea Nitrogen 9 mg/dL (9-20); Carbon Dioxide 20 mmol/L (22-30); Chloride 106 mmol/L (98-107); Glucose 159 mg/dL (74-99); Phosphorus 3.2 mg/dL (2.5-4.5); Potassium 3.3 mmol/L (3.5-5.1); Sodium 138 mmol/L (137-145)
[2018-08-19] MEDS ORDERED: cloNIDine HCL 0.1 MG TAB PO STA (12:50)
[2018-08-19 13:26] LABS: Glucose,Whole Blood 141 mg/dL (75-99)
[2018-08-19 14:40] LABS: Glucose,Whole Blood 175 mg/dL (75-99)
--- NOTE | 2018-08-19 14:46 | P.GSCN ---
History of Present Illness Consult date: 08/19/18 History of present illness: CHIEF COMPLAINT: Acute pancreatitis HISTORY OF PRESENT ILLNESS: The patient is a 38-year-old male who presents to the hospital after developing acute pancreatitis. He reports being a heavy drinker. He had practiced abstinence however now he "fell off the wagon.". Incidentally he also has uncontrolled diabetes and is a cardiac patient. As a result of his initial epigastric abdominal pain general surgery is consulted. He does report recurrent pancreatitis attacks following drinking. PAST MEDICAL HISTORY: Please see list PAST SURGICAL HISTORY: Please see list MEDICATIONS: Please see list ALLERGIES: Please see list SOCIAL HISTORY: Chronic alcohol abuse. FAMILY HISTORY: Cardiac disease. REVIEW OF ORGAN SYSTEMS: CONSTITUTIONAL: No reports of fevers or chills. HEENT: Denies any troubles with the vision or hearing. ENDOCRINE: No reports of hypothyroidism. Has diabetes. RESPIRATORY: No recent pneumonias. CARDIOVASCULAR: Denies chest pain or palpitations. Past history of cardiomyopathy. GI: No blood in stools or constipation. MUSCULOSKELETAL: Has occasional joint pain including back pain. NEURO: No seizure disorders or headaches. No recent stroke. PSYCH: No depression or suicidal ideation. GENITOURINARY: No active blood in urine. No urinary hesitancy. HEMATOLOGIC: No personal or family history of DVTs or pulmonary emboli. SKIN: No skin cancer. PHYSICAL EXAM: VITAL SIGNS: Afebrile vital signs stable GENERAL: Well-developed pleasant in no acute distress. HEENT: No scleral icterus. Extraocular movements grossly intact. Moist buccal mucosa. NECK: Supple without lymphadenopathy. CHEST: Unlabored respirations. Equal bilateral excursions. CARDIOVASCULAR: Regular rate regular rhythm rhythm. Distal 2+ pulses. ABDOMEN: Soft, nondistended. Minimal tenderness epigastrium. MUSCULOSKELETAL: No clubbing, cyanosis, or edema. NEURO: Cranial nerves II to XII within normal limits. No focal or lateralizing signs. PSYCH: Alert and oriented to person, place and time. SKIN: Well-perfused good skin turgor. ASSESSMENT: 1. Chronic alcohol use. 2. Recurrent pancreatitis secondary to alcohol abuse. PLAN: 1. Recommend alcohol abstinence. I ordered an ultrasound of the abdomen which was negative for gallstones. 2. Substance abuse counseling advised. 3. No surgical intervention needed. 4. IV fluid hydration for hyperglycemia 5. May benefit from nothing by mouth status for 24 hours followed by clear liquid diet low sugar Past Medical History Past Medical History: Coronary Artery Disease (CAD), Diabetes Mellitus, Hyperlipidemia, Hypertension, Myocardial Infarction ([place]) Additional Past Medical History / Comment(s): pancreatitis/ETOH abuse. Other hx: Recent head injury with morris now removed. Last Myocardial Infarction Date:: 2011 History of Any Multi-Drug Resistant Organisms: None Reported Past Surgical History: Heart Catheterization With Stent Additional Past Surgical History / Comment(s): [place] [facility] [place] rt hand sx to repair nerve/tendons d/t injury. Past Anesthesia/Blood Transfusion Reactions: No Reported Reaction Date of Last Stent Placement:: 2011 Past Psychological History: Anxiety, Bipolar, Depression Additional Psychological History / Comment(s): He does not drive, his significant other drives. There are 4 children in the home Smoking Status: Current every day smoker Past Alcohol Use History: Occasional Additional Past Alcohol Use History / Comment(s): Pt has hx of ETOH abuse. Past Drug Use History: Marijuana Additional Drug Use History / Comment(s): daily use of marijuana - Past Family History Mother Family Medical History: CVA/TIA, Diabetes Mellitus, Hypertension Additional Family Medical History / Comment(s): Mother is still living. Father Family Medical History: CVA/TIA Additional Family Medical History / Comment(s): Father is still living. Medications and Allergies Home Medications Medication Instructions Recorded Confirmed Type Aspirin EC [Ecotrin Low Dose] 81 mg PO DAILY #30 tablet. 02/11/17 08/19/18 Rx Atorvastatin [Lipitor] 80 mg PO HS #10 tab 05/22/18 08/19/18 Rx Lisinopril [Zestril] 40 mg PO DAILY 10 Days #10 tab 05/22/18 08/19/18 Rx Allergies Allergy/AdvReac Type Severity Reaction Status Date / Time Mushroom AdvReac Nausea & Verified 08/19/18 11:05 Vomiting shellfish derived [Shellfish] AdvReac Nausea & Verified 08/19/18 11:05 Vomiting Surgical - Exam Vital Signs Pulse Ox 98 08/19/18 03:53 Results - Labs 08/19/18 03:50 08/19/18 11:21 Abnormal Lab Results - Last 24 Hours (Table) 08/19/18 08/19/18 08/19/18 Range/Units 03:50 03:50 03:50 WBC 17.9 H (3.8-10.6) k/uL Neutrophils # 15.9 H (1.3-7.7) k/uL Sodium 136 L (137-145) mmol/L Potassium (3.5-5.1) mmol/L Carbon Dioxide 15 L (22-30) mmol/L Glucose 318 H (74-99) mg/dL POC Glucose (mg/dL) (75-99) mg/dL Phosphorus 4.9 H (2.5-4.5) mg/dL Total Creatine Kinase 182 H (55-170) U/L Lipase 2413 H (23-300) U/L Urine Protein (Negative) Urine Glucose (UA) (Negative) Urine Ketones (Negative) Hyaline Casts (0-2) /lpf Urine Mucus (None) /hpf 08/19/18 08/19/18 08/19/18 Range/Units 04:50 06:26 07:40 WBC (3.8-10.6) k/uL Neutrophils # (1.3-7.7) k/uL Sodium (137-145) mmol/L Potassium (3.5-5.1) mmol/L Carbon Dioxide (22-30) mmol/L Glucose (74-99) mg/dL POC Glucose (mg/dL) 303 H 194 H (75-99) mg/dL Phosphorus (2.5-4.5) mg/dL Total Creatine Kinase (55-170) U/L Lipase (23-300) U/L Urine Protein 1+ H (Negative) Urine Glucose (UA) 4+ H (Negative) Urine Ketones 4+ H (Negative) Hyaline Casts 3 H (0-2) /lpf Urine Mucus Rare H (None) /hpf 08/19/18 08/19/18 08/19/18 Range/Units 08:04 09:38 10:49 WBC (3.8-10.6) k/uL Neutrophils # (1.3-7.7) k/uL Sodium (137-145) mmol/L Potassium 3.2 L (3.5-5.1) mmol/L Carbon Dioxide 21 L (22-30) mmol/L Glucose 161 H (74-99) mg/dL POC Glucose (mg/dL) 109 H 152 H (75-99) mg/dL Phosphorus (2.5-4.5) mg/dL Total Creatine Kinase (55-170) U/L Lipase (23-300) U/L Urine Protein (Negative) Urine Glucose (UA) (Negative) Urine Ketones (Negative) Hyaline Casts (0-2) /lpf Urine Mucus (None) /hpf 08/19/18 08/19/18 08/19/18 Range/Units 11:21 11:46 13:19 WBC (3.8-10.6) k/uL Neutrophils # (1.3-7.7) k/uL Sodium (137-145) mmol/L Potassium 3.3 L (3.5-5.1) mmol/L Carbon Dioxide 20 L (22-30) mmol/L Glucose 159 H (74-99) mg/dL POC Glucose (mg/dL) 140 H 141 H (75-99) mg/dL Phosphorus (2.5-4.5) mg/dL Total Creatine Kinase (55-170) U/L Lipase (23-300) U/L Urine Protein (Negative) Urine Glucose (UA) (Negative) Urine Ketones (Negative) Hyaline Casts (0-2) /lpf Urine Mucus (None) /hpf Microbiology - Last 24 Hours (Table) 08/19/18 04:50 Urine Culture - Preliminary Urine,Voided Diabetes panel 08/19/18 08/19/18 08/19/18 Range/Units 03:50 08:04 11:21 Sodium 136 L 141 138 (137-145) mmol/L Potassium 3.5 3.2 L 3.3 L (3.5-5.1) mmol/L Chloride 101 107 106 (98-107) mmol/L Carbon Dioxide 15 L 21 L 20 L (22-30) mmol/L BUN 10 10 9 (9-20) mg/dL Creatinine 0.85 0.77 0.66 (0.66-1.25) mg/dL Glucose 318 H 161 H 159 H (74-99) mg/dL Calcium 9.8 (8.4-10.2) mg/dL AST 45 (17-59) U/L ALT 40 (21-72) U/L Alkaline Phosphatase 102 (38-126) U/L Total Protein 7.8 (6.3-8.2) g/dL Albumin 4.6 (3.5-5.0) g/dL Calcium panel 08/19/18 08/19/18 08/19/18 Range/Units 03:50 08:04 11:21 Calcium 9.8 (8.4-10.2) mg/dL Phosphorus 4.9 H 3.4 3.2 (2.5-4.5) mg/dL Albumin 4.6 (3.5-5.0) g/dL Pituitary panel 08/19/18 08/19/18 08/19/18 Range/Units 03:50 08:04 11:21 Sodium 136 L 141 138 (137-145) mmol/L Potassium 3.5 3.2 L 3.3 L (3.5-5.1) mmol/L Chloride 101 107 106 (98-107) mmol/L Carbon Dioxide 15 L 21 L 20 L (22-30) mmol/L BUN 10 10 9 (9-20) mg/dL Creatinine 0.85 0.77 0.66 (0.66-1.25) mg/dL Glucose 318 H 161 H 159 H (74-99) mg/dL Calcium 9.8 (8.4-10.2) mg/dL Adrenal panel 08/19/18 08/19/18 08/19/18 Range/Units 03:50 08:04 11:21 Sodium 136 L 141 138 (137-145) mmol/L Potassium 3.5 3.2 L 3.3 L (3.5-5.1) mmol/L Chloride 101 107 106 (98-107) mmol/L Carbon Dioxide 15 L 21 L 20 L (22-30) mmol/L BUN 10 10 9 (9-20) mg/dL Creatinine 0.85 0.77 0.66 (0.66-1.25) mg/dL Glucose 318 H 161 H 159 H (74-99) mg/dL Calcium 9.8 (8.4-10.2) mg/dL Total Bilirubin 0.6 (0.2-1.3) mg/dL AST 45 (17-59) U/L ALT 40 (21-72) U/L Alkaline Phosphatase 102 (38-126) U/L Total Protein 7.8 (6.3-8.2) g/dL Albumin 4.6 (3.5-5.0) g/dL - Imaging US - abdomen: report reviewed, image reviewed Assessment and Plan (1) History of myocardial infarction Current Visit: Yes Status: Acute Code(s): I25.2 - OLD MYOCARDIAL INFARCTION SNOMED Code(s): 450593373 (2) Alcohol abuse Current Visit: Yes Status: Acute Code(s): F10.10 - ALCOHOL ABUSE, UNCOMPLICATED SNOMED Code(s): 74913991 (3) Acute on chronic pancreatitis Current Visit: Yes Status: Acute Code(s): K85.90 - ACUTE PANCREATITIS WITHOUT NECROSIS OR INFECTION, UNSP; K86.1 - OTHER CHRONIC PANCREATITIS SNOMED Code(s): 116196451 (4) Alcoholic pancreatitis Current Visit: Yes Status: Acute Code(s): K85.20 - ALCOHOL INDUCED ACUTE PANCREATITIS WITHOUT NECROSIS OR INFCT SNOMED Code(s): 704467786 (5) DKA (diabetic ketoacidoses) Current Visit: Yes Status: Acute Code(s): E13.10 - OTH DIABETES MELLITUS WITH KETOACIDOSIS WITHOUT COMA SNOMED Code(s): 112343706 (6) History of hypertension Current Visit: No Status: Acute Code(s): Z86.79 - PERSONAL HISTORY OF OTHER DISEASES OF THE CIRCULATORY SYSTEM SNOMED Code(s): 482081830
[2018-08-19] MEDS: ENALAPRILAT 1.25 MG/ML 1 ML VIAL IVP PRN ×2 (15:45→23:20)
[2018-08-19] MEDS: cloNIDine HCL 0.1 MG TAB PO SCH ×2 (15:45→20:31)
[2018-08-19 16:04] LABS: Glucose,Whole Blood 173 mg/dL (75-99)
[2018-08-19] MEDS ORDERED: LORazepam 2 MG/ML INJ IV PRN (16:14)
--- NOTE | 2018-08-19 16:28 | HP ---
HISTORY AND PHYSICAL CHIEF COMPLAINT: This patient is a 38-year-old -Turk[place] male with pancreatitis, DKA. HISTORY OF PRESENT ILLNESS: This is a 38-year-old -[place] male with acute pancreatitis due to heavy drinking over the past week. He states he fell off the wagon. He has also had uncontrolled diabetes mellitus. Here Surgery was consulted for abdominal pain. He always gets pancreatitis after drinking, he states; this is a recurrence for him, he states, similar to prior episodes. SOCIAL HISTORY: Heavy alcohol drinker, smoker. Chronic alcohol disease. PAST SURGICAL HISTORY: See list. MEDICATIONS: See list. ALLERGIES: SEE LIST. FAMILY HISTORY: Cardiac disease. REVIEW OF SYSTEMS: Fourteen-point review of systems negative except for mentioned in HPI. PHYSICAL EXAMINATION: Hypertension, 160s over 100s. CARDIOVASCULAR: S1, S2. LUNGS: Clear. GI: Diffuse tenderness to palpation. Increased bowel sounds. HEMATOLOGY: Negative Homans. OPHTHALMOLOGIC: Pupils equal, round, reactive to light and accommodation. : No suprapubic tenderness. ASSESSMENT: 1. Chronic alcohol use. 2. Recurrent pancreatitis. 3. Hypertension acceleration. 4. Diabetes mellitus. 5. Hyperglycemia. 6. Diabetic ketoacidosis protocol. 7. Hypertension control. Please see current treatment for his alcoholism and for his pancreatitis and hypertension control. MMODL / IJN: [id number] /
[2018-08-19] MEDS ORDERED: ONDANSETRON 4 MG/2 ML VIAL IVP PRN (16:30)
[2018-08-19 17:28] LABS: Glucose,Whole Blood 155 mg/dL (75-99)
--- NOTE | 2018-08-19 17:49 | CT ---
EXAMINATION TYPE: CT angio chest DATE OF EXAM: 08/19/2018 COMPARISON: 02/09/2017 HISTORY: Chest pain. CT DLP: 281.9 mGycm. Automated Exposure Control for Dose Reduction was Utilized. CONTRAST: CTA scan of the thorax is performed with IV Contrast, patient injected with 74 mL of Isovue 370, pulm onary embolism protocol. MIP Images are created on CT scanner and reviewed. FINDINGS: LUNGS: There are scattered blebs throughout the lungs. Linear pleural parenchymal scarring is seen wi thin the right lower lobe. Minimal atelectasis is noted as well as extensive respiratory artifact. Th e lungs are grossly clear, there is no concerning parenchymal mass or nodule identified. There is n o pleural effusion or pneumothorax seen. The tracheobronchial tree is patent. MEDIASTINUM: Linear defects through the subsegmental pulmonary arteries 1 evaluated on the coronal im age are related to respiration artifact such as on coronal image 24 as numerous horizontal linear def ects are seen. This makes evaluation of the subsegmental pulmonary arteries nondiagnostic. No pulmona ry embolus is seen within the segmental or central pulmonary arteries. Main pulmonary artery is upper limits of normal size measuring 2.9 cm. Ascending thoracic aorta and a straight dilation of the aort ic root measuring 4.1 cm no dilation of the ascending thoracic aorta as it measures 3.6 cm. Ascending thoracic aorta is also nonenlarged. Heart is upper limits of normal. There are no greater than 1 cm hilar or mediastinal lymph nodes. No pericardial effusion is seen. OTHER: Questionable fat stranding around the pancreas is seen although this could also relate to fausto ent motion. Correlation with serum amylase and lipase are recommended. IMPRESSION: Extensive respiratory artifact makes in evaluation of the subsegmental pulmonary arteries nondiagnostic. No central or segmental pulmonary embolus. No focal consolidation suggest pneumonia. Peripancreatic questionable fat stranding is seen that also could relate to artifact from motion mosley wolfgang correlation with serum amylase and lipase are recommended.
[2018-08-19 18:57] LABS: Glucose,Whole Blood 194 mg/dL (75-99)
[2018-08-19 19:50] VITALS: BMI 23.1
[2018-08-19 20:11] LABS: Glucose,Whole Blood 175 mg/dL (75-99)
[2018-08-19] MEDS: ATORVASTATIN 80 MG TAB PO SCH (20:31)
[2018-08-19 21:05] LABS: Glucose,Whole Blood 214 mg/dL (75-99)
[2018-08-19 21:15] LABS: Anion Gap 16 mmol/L; Blood Urea Nitrogen 5 mg/dL (9-20); Calcium 9.2 mg/dL (8.4-10.2); Carbon Dioxide 18 mmol/L (22-30); Chloride 98 mmol/L (98-107); Glucose 194 mg/dL (74-99); Phosphorus 3.4 mg/dL (2.5-4.5); Sodium 132 mmol/L (137-145)
[2018-08-19 21:22] LABS: Potassium 3.9 mmol/L (3.5-5.1)
[2018-08-19] MEDS ORDERED: INSULIN NPH 300 UNIT/3 ML VIAL SQ ONE (21:24)
[2018-08-20] MEDS: LORazepam 2 MG/ML INJ IV PRN ×5 (02:03→21:28)
[2018-08-20 02:24] LABS: Glucose,Whole Blood 195 mg/dL (75-99)
[2018-08-20] MEDS: ENALAPRILAT 1.25 MG/ML 1 ML VIAL IVP PRN (03:37)
[2018-08-20] MEDS: MORPHINE SULFATE 4 MG/ML SYRINGE IVP PRN ×5 (03:37→19:28)
[2018-08-20 05:54] LABS: Glucose,Whole Blood 172 mg/dL (75-99)
[2018-08-20] MEDS: hydrALAZINE HCL 20 MG/ML 1 ML VIAL IVP PRN (05:57)
[2018-08-20 06:50] LABS: Basophils % (A) 0 %; Eosinophils # (A) 0.1 k/uL (0-0.7); Eosinophils % (A) 1 %; HCT 48.3 % (39.0-53.0); Lymphocytes # (A) 1.8 k/uL (1.0-4.8); Lymphocytes % (A) 14 %; MCH 30.3 pg (25.0-35.0); MCHC 33.1 g/dL (31.0-37.0); MCV 91.6 fL (80.0-100.0); Mean Platelet Volume 7.6; Monocytes # (A) 0.6 k/uL (0-1.0); Monocytes % (A) 5 %; Neutrophils # (A) 10.4 k/uL (1.3-7.7); Neutrophils % (A) 80 %; Platelet Count 182 k/uL (150-450); RBC 5.27 m/uL (4.30-5.90); WBC 13.1 k/uL (3.8-10.6)
[2018-08-20] MEDS: INSULIN ASPART 100 UNIT/ML 1 ML 10 ML VIAL SQ SCH ×6 (07:06→16:56)
[2018-08-20 07:13] LABS: ALT 29 U/L (21-72); AST 32 U/L (17-59); Albumin 4.3 g/dL (3.5-5.0); Alkaline Phosphatase 94 U/L (38-126); Anion Gap 14 mmol/L; Blood Urea Nitrogen 5 mg/dL (9-20); Calcium 9.4 mg/dL (8.4-10.2); Carbon Dioxide 21 mmol/L (22-30); Chloride 98 mmol/L (98-107); Glucose 183 mg/dL (74-99); Potassium 3.7 mmol/L (3.5-5.1); Sodium 133 mmol/L (137-145); Total Bilirubin 1.1 mg/dL (0.2-1.3); Total Protein 7.3 g/dL (6.3-8.2)
[2018-08-20] MEDS: cloNIDine HCL 0.1 MG TAB PO SCH ×2 (09:31→15:30)
[2018-08-20] MEDS: ASPIRIN 81 MG PO SCH (09:31)
[2018-08-20] MEDS: INSULIN DETEMIR 100 UNIT/ML 10 ML VIAL SQ SCH (09:31)
[2018-08-20] MEDS: LISINOPRIL 20 MG TAB PO SCH (09:31)
[2018-08-20] MEDS: NICOTINE 21MG/24HR PATCH TRANSDERM SCH (11:36)
[2018-08-20 11:45] LABS: Glucose,Whole Blood 145 mg/dL (75-99)
--- NOTE | 2018-08-20 13:57 | P.CRDCN ---
History of Present Illness Consult date: 08/20/18 History of present illness: This is a 38-year-old male with history of coronary artery disease with prior stenting of the left anterior descending, hypertension and hyperlipidemia and also history of marijuana use, tobacco use and dependence, alcohol abuse. This patient has multiple visits to the emergency room with complaints of chest pain. In January of last year, Patient had a cardiac catheterization by Dr. Pan and was found to have patent stented area in the LAD. Patient states that he has had 4 bouts of pancreatitis. He states he was drinking on Tuesday and Tuesday and on Tuesday evening he started having abdominal pain to the epigastric area most severely. He states he stopped drinking but the pain kept getting worse. He came into [facility] emergency center was found to have a lipase of 2413, his blood pressure was elevated, his blood sugar at home was in the 400s and acetone was positive. Patient states that he has been taking his blood pressure medications at home. He has been admitted to the selective care unit and continued on insulin, IV fluids, nothing it by mouth until this morning he was started on clear liquid diet. Patient denies any actual chest pain. He states all his pain is in the epigastric area and across the upper abdomen. Ultrasound the gallbladder reveals poor visualization of the pancreas. No other definite acute abnormality. CT angiogram revealed extensive artifact makes evaluation of sub-segmental ulnar arteries nondiagnostic. No central or segmental pulmonary embolus. No focal consolidation to suggest pneumonia. Pancreatic questionable fat stranding is seen but also could relate to artifact. EKG reveals sinus mechanism with no acute ST or T wave abnormalities noted. Laboratory data review WBC 13.1, hemoglobin 13.9, platelets 182, sodium 133, potassium 3.7, creatinine 0.63, cardiac enzymes negative 2. Current cardiac medications include aspirin 81 mg daily, Lipitor 80 mg at bedtime and lisinopril 40 mg daily. At the time of my exam: CONSTITUTIONAL: Denies fever. Denies chills. EYES: Denies blurred vision. Denies vision changes. Denies eye pain. EARS, NOSE, MOUTH & THROAT: Denies headache. Denies sore throat. Denies ear pain. CARDIOVASCULAR: Denies chest pain. Denies shortness of breath. Denies orthopnea. Denies PND. Denies palpitations. RESPIRATORY: Denies cough. GASTROINTESTINAL: Complains of abdominal pain. Denies diarrhea. Denies constipation. Denies nausea. Denies vomiting. MUSCULOSKELETAL: Denies myalgias. Complains of pain to the left elbow. INTEGUMENTARY: Denies pruitis. Denies rash. NEUROLOGIC: Denies numbness. Denies tingling. Denies weakness. PSYCHIATRIC: Denies anxiety. Denies depression. ENDOCRINE: Denies fatigue. Denies weight change. Denies polydipsia. Denies polyurina. GENITOURINARY: Denies burning, hematuria or urgency with micturation. HEMATOLOGIC: Denies history of anemia. Denies bleeding. Blood pressure 120/75 heart rate 97 afebrile maintaining oxygen saturation on room air. GENERAL: This is a 38-year-old -[place] male in no apparent distress at the time of my examination. HEENT: Head is atraumatic, normocephalic. Pupils are equal, round. Sclerae anicteric. Conjunctivae are clear. Mucous membranes of the mouth are slightly dry. Neck is supple. There is no jugular venous distention. No carotid bruit is heard. LUNGS: Clear to auscultation no wheezes, rales or rhonchi. No chest wall tenderness is noted on palpation or with deep breathing. HEART: Regular rate and rhythm without murmurs, rubs or gallops. S1 and S2 heard. ABDOMEN: Soft, severe tenderness to the epigastric area. Bowel sounds are heard. No organomegaly noted. EXTREMITIES: No evidence of lower extremity edema and no calf tenderness noted. VASCULAR: dorsalis pedis pulses palpated, no evidence of clubbing. NEUROLOGIC: Patient is awake, alert and oriented x3. ASSESSMENT Acute alcohol-induced pancreatitis. Chest pain secondary to pancreatitis. An acute coronary event has been ruled out. History of coronary artery disease status post stenting of the LAD. Hypertension Chronic alcohol intake, tobacco use and marijuana use PLAN An acute coronary event has been ruled out. Etiology of chest pain is most likely it is secondary to acute pancreatitis. Continue aspirin 81 mg daily, Lipitor 80 mg at bedtime and lisinopril 40 mg daily. Ongoing medical management. Thank you kindly for this consultation. Nurse Practitioner note has been reviewed, I agree with a documented findings and plan of care. Patient was seen and examined. Past Medical History Past Medical History: Coronary Artery Disease (CAD), Diabetes Mellitus, Hyperlipidemia, Hypertension, Myocardial Infarction ([place]) Additional Past Medical History / Comment(s): pancreatitis/ETOH abuse. Other hx: Recent head injury with morris now removed. Last Myocardial Infarction Date:: 2011 History of Any Multi-Drug Resistant Organisms: None Reported Past Surgical History: Heart Catheterization With Stent Additional Past Surgical History / Comment(s): PCI with stent at [facility] [place].1997 had rt hand sx to repair nerve/tendons d/t injury. Past Anesthesia/Blood Transfusion Reactions: No Reported Reaction Date of Last Stent Placement:: 2011 Past Psychological History: Anxiety, Bipolar, Depression Additional Psychological History / Comment(s): He does not drive, his significant other drives. There are 4 children in the home Smoking Status: Current every day smoker Past Alcohol Use History: Occasional Additional Past Alcohol Use History / Comment(s): Pt has hx of ETOH abuse. Patient smokes half a pack per day. He is currently drinking a few beers per day. He states he has cut back. He also smokes 2-3 joints of marijuana per day. Past Drug Use History: Marijuana Additional Drug Use History / Comment(s): daily use of marijuana - Past Family History Mother Family Medical History: CVA/TIA, Diabetes Mellitus, Hypertension Additional Family Medical History / Comment(s): Mother is still living. Father Family Medical History: CVA/TIA Additional Family Medical History / Comment(s): Father is still living. Medications and Allergies Home Medications Medication Instructions Recorded Confirmed Type Aspirin EC [Ecotrin Low Dose] 81 mg PO DAILY #30 tablet. 02/11/17 08/19/18 Rx Atorvastatin [Lipitor] 80 mg PO HS #10 tab 05/22/18 08/19/18 Rx Lisinopril [Zestril] 40 mg PO DAILY 10 Days #10 tab 05/22/18 08/19/18 Rx Allergies Allergy/AdvReac Type Severity Reaction Status Date / Time Mushroom AdvReac Nausea & Verified 08/19/18 11:05 Vomiting shellfish derived [Shellfish] AdvReac Nausea & Verified 08/19/18 11:05 Vomiting Physical Exam Vitals: Vital Signs Temp Pulse Pulse Resp BP BP Pulse Ox 08/20/18 08:00 102 H 16 141/88 95 08/20/18 04:00 99 22 174/116 97 08/20/18 02:15 103 H 166/128 97 08/19/18 23:52 93 15 187/117 98 08/19/18 21:30 85 16 186/103 96 08/19/18 20:00 90 16 08/19/18 18:59 75 18 176/110 98 08/19/18 17:16 75 195/108 08/19/18 16:09 97.9 F 90 20 177/111 98 08/19/18 13:18 98.6 F 77 18 183/134 99 08/19/18 12:45 79 20 195/114 99 08/19/18 12:37 188/128 08/19/18 11:23 67 20 205/128 Intake and Output 08/19/18 08/20/18 08/20/18 22:59 06:59 14:59 Intake Total 5.866 Output Total 250 250 Balance -244.134 -250 Intake: Intake, IV Titration 5.866 Amount Insulin Regular 100 unit 5.866 In Sodium Chloride 0.9% 100 ml @ 0.1 UNITS/KG/HR 8.29 mls/hr IV .[id number] [facility] Rx#:[id number] Output: Urine 250 250 Other: Voiding Method Urinal Weight 75.4 kg Results 08/20/18 06:06 08/20/18 06:06 Cardiac Enzymes 08/19/18 08/20/18 Range/Units 18:03 06:06 AST 32 (17-59) U/L Troponin I 0.031 (0.000-0.034) ng/mL CBC 08/20/18 Range/Units 06:06 WBC 13.1 H (3.8-10.6) k/uL RBC 5.27 (4.30-5.90) m/uL Hgb 16.0 (13.0-17.5) gm/dL Hct 48.3 (39.0-53.0) % Plt Count 182 (150-450) k/uL Comprehensive Metabolic Panel 08/19/18 08/19/18 08/20/18 Range/Units 11:21 20:44 06:06 Sodium 138 132 L 133 L (137-145) mmol/L Potassium 3.3 L 3.9 3.7 (3.5-5.1) mmol/L Chloride 106 98 98 (98-107) mmol/L Carbon Dioxide 20 L 18 L 21 L (22-30) mmol/L BUN 9 5 L 5 L (9-20) mg/dL Creatinine 0.66 0.55 L 0.63 L (0.66-1.25) mg/dL Glucose 159 H 194 H 183 H (74-99) mg/dL Calcium 9.2 9.4 (8.4-10.2) mg/dL AST 32 (17-59) U/L ALT 29 (21-72) U/L Alkaline Phosphatase 94 (38-126) U/L Total Protein 7.3 (6.3-8.2) g/dL Albumin 4.3 (3.5-5.0) g/dL Current Medications Generic Name Dose Route Start Last Admin Trade Name Freq PRN Reason Stop Dose Admin Aspirin 81 mg 08/20/18 09:00 08/20/18 09:31 Aspirin PO 81 mg DAILY [facility] Administration Atorvastatin Calcium 80 mg 08/19/18 21:00 08/19/18 20:31 Lipitor PO 80 mg HS [facility] Administration Clonidine 0.3 mg 08/19/18 16:00 08/20/18 09:31 Catapres PO 0.3 mg TID [facility] Administration Enalaprilat 2.5 mg 08/19/18 15:32 08/20/18 03:37 Vasotec IVP 2.5 mg Q4HR PRN Administration Blood Pressure - High Hydralazine HCl 10 mg 08/19/18 11:34 08/20/18 05:57 Apresoline IVP 10 mg Q8HR PRN Administration Blood Pressure - High Potassium Chloride/Dextrose/Sod Cl 1,000 mls @ 50 mls/hr 08/19/18 08:30 08/19 21:57 D5%-1/2ns-Kcl 20 Meq/L Iv Solution IV 50 mls/hr .Q20H [facility] Administration Insulin Aspart 8 unit 08/20/18 07:30 08/20/18 07:06 Novolog 0.1 unit/kg (8 unit) 8 unit SQ Administration AC-TID [facility] Insulin Aspart 0 unit 08/20/18 07:30 08/20/18 07:06 Novolog SQ 2 unit ACHS [facility] Administration Protocol Insulin Detemir 23 unit 08/20/18 09:00 08/20/18 09:31 Levemir 0.3 unit/kg (23 unit) 23 unit SQ Administration DAILY [facility] Lisinopril 40 mg 08/20/18 09:00 08/20/18 09:31 Zestril PO 40 mg DAILY [facility] Administration Lorazepam 1 mg 08/19/18 05:53 08/19/18 13:49 Ativan IV 1 mg Q4HR PRN Administration Anxiety Lorazepam 1 mg 08/19/18 16:14 08/20/18 09:33 Ativan IV 1 mg Q2HR PRN Administration CIWA 8 or 9 Lorazepam 1 mg 08/19/18 16:14 08/19/18 20:32 Ativan IV 1 mg Q1HR PRN Administration CIWA 10 to 15 Lorazepam 2 mg 08/19/18 16:14 08/19/18 16:33 Ativan IV 08/21/18 16:14 2 mg Q10M PRN Administration CIWA 16 or higher Morphine Sulfate 4 mg 08/19/18 05:53 08/20/18 07:09 Morphine Sulfate (Inj) IVP 4 mg Q4HR PRN Administration Pain Nicotine 1 patch 08/20/18 10:00 Habitrol 21mg/24hr Patch TRANSDERM DAILY [facility] Ondansetron HCl 4 mg 08/19/18 16:30 Zofran IVP Q6HR PRN Nausea And Vomiting Intake and Output 08/19/18 08/20/18 08/20/18 22:59 06:59 14:59 Intake Total 5.866 Output Total 250 250 Balance -244.134 -250 Intake: Intake, IV Titration 5.866 Amount Insulin Regular 100 unit 5.866 In Sodium Chloride 0.9% 100 ml @ 0.1 UNITS/KG/HR 8.29 mls/hr IV .[id number] [facility] Rx#:[id number] Output: Urine 250 250 Other: Voiding Method Urinal Weight 75.4 kg 08/20/18 06:06 08/20/18 06:06
--- NOTE | 2018-08-20 14:41 | P.PN ---
Subjective Progress Note Date: 08/20/18 CHIEF COMPLAINT: Abdominal pain HISTORY OF PRESENT ILLNESS: The patient is a 38-year-old gentleman admitted secondary to acute pancreatitis. He has history of alcoholism. Separately has a significant cardiac history. Since admission, abdominal pain has improved. PHYSICAL EXAM: VITAL SIGNS: Currently stable. GENERAL: Well-developed in no acute distress. HEENT: No sclera icterus. Extraocular movements grossly intact. Moist buccal mucosa. Head is atraumatic, normocephalic. Hears conversational speech. No nasal drainage. NECK: Supple without lymphadenopathy. CHEST: Non-labored respirations and equal bilateral excursions. CARDIOVASCULAR: Regular rate with regular rhythm. ABDOMEN: Soft, nondistended, no peritonitis. Decrease epigastric tenderness MUSCULOSKELETAL: No clubbing, cyanosis or edema. NEUROLOGIC: No focal or lateralizing signs. Cranial nerves II through XII grossly intact. PSYCH: Alert and oriented to person, place and time. SKIN: Well perfused. Good skin turgor. LABS: Reviewed ASSESSMENT: 1. Acute on chronic cryptitis secondary to alcoholism PLAN: 1. No surgical intervention needed. 2. Alcohol abstinence reviewed. 3. Medical management of hyperglycemia Objective - Vital Signs Vital signs: Vital Signs Temp 98.0 F 08/20/18 12:00 Pulse 97 08/20/18 12:00 Resp 18 08/20/18 12:00 BP 120/75 08/20/18 12:00 Pulse Ox 97 08/20/18 12:00 Intake & Output 08/19/18 08/20/18 08/20/18 18:59 06:59 18:59 Intake Total 31.327 3.066 400 Output Total 800 500 Balance -768.673 -496.934 400 Weight 75.4 kg 75.4 kg Intake: Intake, IV Titration 31.327 3.066 400 Amount D5-0.45% NaCl with KCl 400 20Meq/l 1,000 ml @ 50 mls /hr IV .Q20H [facility] Rx#: [id number] Insulin Regular 100 unit 31.327 3.066 In Sodium Chloride 0.9% 100 ml @ 0.1 UNITS/KG/HR 8.29 mls/hr IV .[id number] [facility] Rx#:[id number] Output: Urine 800 500 Other: Voiding Method Urinal Urinal - Labs CBC & Chem 7: 08/20/18 06:06 08/20/18 06:06 Labs: Abnormal Lab Results - Last 24 Hours (Table) 08/19/18 08/19/18 08/19/18 Range/Units 14:38 15:59 17:25 WBC (3.8-10.6) k/uL Neutrophils # (1.3-7.7) k/uL Sodium (137-145) mmol/L Carbon Dioxide (22-30) mmol/L BUN (9-20) mg/dL Creatinine (0.66-1.25) mg/dL Glucose (74-99) mg/dL POC Glucose (mg/dL) 175 H 173 H 155 H (75-99) mg/dL 08/19/18 08/19/18 08/19/18 Range/Units 18:53 19:59 20:44 WBC (3.8-10.6) k/uL Neutrophils # (1.3-7.7) k/uL Sodium 132 L (137-145) mmol/L Carbon Dioxide 18 L (22-30) mmol/L BUN 5 L (9-20) mg/dL Creatinine 0.55 L (0.66-1.25) mg/dL Glucose 194 H (74-99) mg/dL POC Glucose (mg/dL) 194 H 175 H (75-99) mg/dL 08/19/18 08/20/18 08/20/18 Range/Units 21:03 02:13 05:53 WBC (3.8-10.6) k/uL Neutrophils # (1.3-7.7) k/uL Sodium (137-145) mmol/L Carbon Dioxide (22-30) mmol/L BUN (9-20) mg/dL Creatinine (0.66-1.25) mg/dL Glucose (74-99) mg/dL POC Glucose (mg/dL) 214 H 195 H 172 H (75-99) mg/dL 08/20/18 08/20/18 08/20/18 Range/Units 06:06 06:06 11:42 WBC 13.1 H (3.8-10.6) k/uL Neutrophils # 10.4 H (1.3-7.7) k/uL Sodium 133 L (137-145) mmol/L Carbon Dioxide 21 L (22-30) mmol/L BUN 5 L (9-20) mg/dL Creatinine 0.63 L (0.66-1.25) mg/dL Glucose 183 H (74-99) mg/dL POC Glucose (mg/dL) 145 H (75-99) mg/dL Microbiology - Last 24 Hours (Table) 08/19/18 04:50 Urine Culture - Final Urine,Voided Assessment and Plan (1) History of myocardial infarction Current Visit: Yes Status: Acute Code(s): I25.2 - OLD MYOCARDIAL INFARCTION SNOMED Code(s): 096765763 (2) Alcohol abuse Current Visit: Yes Status: Acute Code(s): F10.10 - ALCOHOL ABUSE, UNCOMPLICATED SNOMED Code(s): 46592113 (3) Acute on chronic pancreatitis Current Visit: Yes Status: Acute Code(s): K85.90 - ACUTE PANCREATITIS WITHOUT NECROSIS OR INFECTION, UNSP; K86.1 - OTHER CHRONIC PANCREATITIS SNOMED Code(s): 414518121 (4) Alcoholic pancreatitis Current Visit: Yes Status: Acute Code(s): K85.20 - ALCOHOL INDUCED ACUTE PANCREATITIS WITHOUT NECROSIS OR INFCT SNOMED Code(s): 844247095 (5) DKA (diabetic ketoacidoses) Current Visit: Yes Status: Acute Code(s): E13.10 - OTH DIABETES MELLITUS WITH KETOACIDOSIS WITHOUT COMA SNOMED Code(s): 205051572 (6) History of hypertension Current Visit: No Status: Acute Code(s): Z86.79 - PERSONAL HISTORY OF OTHER DISEASES OF THE CIRCULATORY SYSTEM SNOMED Code(s): 559714239
[2018-08-20 16:53] LABS: Glucose,Whole Blood 81 mg/dL (75-99)
[2018-08-20 20:39] LABS: Glucose,Whole Blood 220 mg/dL (75-99)
--- NOTE | 2018-08-20 23:26 | PN ---
PROGRESS NOTE DATE OF SERVICE: 08/20/2018. HISTORY: He continues to have abdominal pain and is unable to the eat or drink anything. PHYSICAL EXAMINATION: His blood pressure is 136/75, respiratory rate of 18, pulse rate of 76, temperature 98.2, O2 saturation on room air is 97%. HEENT is unremarkable. Chest is clear. Cardiovascular system is S1, S2. Abdomen is soft. There is no edema. LABS: White count is 13.1, hemoglobin of 16. Sodium 133, potassium 3.7, chloride 98, bicarb 21, BUN 5, creatinine of 0.63, glucose 183. His lipase was 2413. IMPRESSION: 1. Acute pancreatitis, uncontrolled. 2. Diabetic ketoacidosis. 3. Dehydration. PLAN: At this point in time, keep him on GI and DVT prophylaxis. Control his blood sugars with insulin. Keep him on IV fluids. Control his blood pressure with antihypertensives intravenously. Increase his activity level. Advance his diet if his abdominal pain decreases. Depending on how he does we should make further changes to his care. MMODL / IJN: [id number] /
[2018-08-21] MEDS: ATORVASTATIN 80 MG TAB PO SCH ×2 (00:02→20:17)
[2018-08-21] MEDS: MORPHINE SULFATE 4 MG/ML SYRINGE IVP PRN ×6 (00:03→20:17)
[2018-08-21] MEDS: FAMOTIDINE 20 MG/2 ML VIAL IV SCH ×3 (00:04→20:17)
[2018-08-21] MEDS: HEPARIN SODIUM,PORCINE 5,000 UNIT/ML 1 ML VIAL SQ SCH ×3 (00:04→20:17)
[2018-08-21] MEDS: cloNIDine HCL 0.1 MG TAB PO SCH ×4 (00:05→23:23)
[2018-08-21] MEDS: INSULIN ASPART 100 UNIT/ML 1 ML 10 ML VIAL SQ SCH ×8 (00:05→21:11)
[2018-08-21] MEDS: D5-0.45% NACL WITH KCL 20MEQ/L 1,000 ML IV SCH (04:26)
[2018-08-21 05:46] LABS: Glucose,Whole Blood 203 mg/dL (75-99)
[2018-08-21] MEDS: INSULIN DETEMIR 100 UNIT/ML 10 ML VIAL SQ SCH (08:58)
[2018-08-21] MEDS: ASPIRIN 81 MG PO SCH (08:59)
[2018-08-21] MEDS: NICOTINE 21MG/24HR PATCH TRANSDERM SCH (08:59)
[2018-08-21] MEDS: LISINOPRIL 20 MG TAB PO SCH (08:59)
[2018-08-21] MEDS: LORazepam 2 MG/ML INJ IV PRN ×3 (09:12→21:55)
[2018-08-21 09:43] LABS: ALT 21 U/L (21-72); AST 27 U/L (17-59); Albumin 3.5 g/dL (3.5-5.0); Alkaline Phosphatase 55 U/L (38-126); Anion Gap 9 mmol/L; Blood Urea Nitrogen 10 mg/dL (9-20); Calcium 9.2 mg/dL (8.4-10.2); Carbon Dioxide 25 mmol/L (22-30); Chloride 98 mmol/L (98-107); Glucose 182 mg/dL (74-99); Lipase 331 U/L (23-300); Potassium 3.7 mmol/L (3.5-5.1); Sodium 132 mmol/L (137-145); Total Bilirubin 1.2 mg/dL (0.2-1.3); Total Protein 6.2 g/dL (6.3-8.2)
[2018-08-21] MEDS ORDERED: POTASSIUM CHLORIDE ER 20 MEQ TAB.ER PO STA (10:28)
--- NOTE | 2018-08-21 10:42 | P.PN ---
Subjective Progress Note Date: 08/21/18 38-year-old seen at the bedside currently resting in bed. States pain medication "takes care of the pain for an hour but "I think I need more pain medication. The lipase is down 331. Was elevated 2413. Patient does have a history of alcoholism has been treated for recurrent pancreatitis attacks following drinking. Patient also has a history of diabetes. Cardiac history as well. Coronary stent placed to the LAD as indicated from a heart catheterization in January 2017 currently patient is denying chest pain cardiology indicate medical therapy enzymes are negative outpatient stress test could be arranged Objective - Vital Signs Vital signs: Vital Signs Temp 98.3 F 08/21/18 08:00 Pulse 78 08/21/18 08:00 Resp 16 08/21/18 08:00 BP 130/65 08/21/18 08:00 Pulse Ox 100 08/21/18 04:00 Intake & Output 08/20/18 08/21/18 08/21/18 18:59 06:59 18:59 Intake Total 640 500 Output Total 400 1200 Balance 240 -1200 500 Weight 75 kg Intake: Intake, IV Titration 400 Amount D5-0.45% NaCl with KCl 400 20Meq/l 1,000 ml @ 50 mls /hr IV .Q20H [facility] Rx#: [id number] Oral 240 500 Output: Urine 400 1200 Other: Voiding Method Urinal Urinal # Voids 1 - Exam Physical exam 38-year-old male resting comfortably in bed appears in no acute distress Lungs adequate air movement bilaterally on room air Heart S1-S2 audible regular currently denying chest pain when questioned Abdomen non-distended bowel tones active no guarding nontender tolerating diet no nausea no vomiting Extremities no edema - Labs CBC & Chem 7: 08/20/18 06:06 08/21/18 08:57 Labs: Abnormal Lab Results - Last 24 Hours (Table) 08/20/18 08/20/18 08/21/18 Range/Units 11:42 20:37 05:44 Sodium (137-145) mmol/L Glucose (74-99) mg/dL POC Glucose (mg/dL) 145 H 220 H 203 H (75-99) mg/dL Total Protein (6.3-8.2) g/dL Lipase (23-300) U/L 08/21/18 Range/Units 08:57 Sodium 132 L (137-145) mmol/L Glucose 182 H (74-99) mg/dL POC Glucose (mg/dL) (75-99) mg/dL Total Protein 6.2 L (6.3-8.2) g/dL Lipase 331 H (23-300) U/L Microbiology - Last 24 Hours (Table) 08/19/18 04:50 Urine Culture - Final Urine,Voided Assessment and Plan Assessment: Impression History of coronary artery disease prior stenting to the LAD in 2017 Prior Heart catheterization showed a patent stent to the LAD CAT scan abdomen and pelvis on admission showed no evidence of a pulmonary emboli Midepigastric pain present on admission suspect due to acute alcohol-induced pancreatitis Chronic alcohol intake daily Chronic marijuana use current every day smoker Present on admission hyperglycemia Recurrent pancreatitis attacks following secondary to alcohol abuse drinking daily consumption Ultrasound of the abdomen was negative for gallstones Electrolyte imbalance hypokalemia Plan Electrolytes were replaced IV fluid as ordered no surgical intervention needed Recommend alcohol abstinence Smoking cessation information provided advised to stop smoking cigarettes Repeat labs Pain control Will follow with you DVT and GI prophylaxis The above impression and plan of care have been discussed and directed by signing physician. Mayra Ovalle nurse practitioner acting as scribe for signing physician.
[2018-08-21 11:31] LABS: Glucose,Whole Blood 69 mg/dL (75-99)
[2018-08-21 11:54] LABS: Glucose,Whole Blood 73 mg/dL (75-99)
[2018-08-21 13:22] LABS: Hemoglobin A1C 11.1 % (4.0-6.0)
[2018-08-21 16:29] LABS: Glucose,Whole Blood 180 mg/dL (75-99)
[2018-08-21] MEDS: SODIUM CHLORIDE 0.9% 1,000 ML IV SCH ×2 (18:02→20:23)
[2018-08-21 21:02] LABS: Glucose,Whole Blood 75 mg/dL (75-99)
--- NOTE | 2018-08-21 21:48 | PN ---
PROGRESS NOTE 38-year-old male, atypical chest pain. Myocardial infarction is ruled out. He has had a patent stent recently and heart catheterization. Cardiovascular S1-S2. Lungs clear. Hematology: Negative Homans. Lipase is 343, down from 1999. ASSESSMENT: 1. Acute on chronic pancreatitis. 2. Diabetes mellitus. 3. Atypical chest pain. Advance diet. Possible discharge home in the morning. MMODL / IJN: [id number] /
--- NOTE | 2018-08-21 21:48 | PN ---
PROGRESS NOTE SUBJECTIVE: 38-year-old male. Pancreatitis improving. Lipase down to 331 from over 1999. Sugars in the mid 100s, 69, 73 up to 180. Sodium 132, potassium 3.7. Diet will be advanced to normal. Possible discharge home in the next 24-48 hours. Cardiovascular S1, S2. Lungs clear. ASSESSMENT: 1. Hypertension acceleration is improving. 2. Acute on chronic pancreatitis. 3. Chronic alcoholism. Blood pressure is down to 130/65 today. Continue current treatments. MMODL / IJN: [id number] /
[2018-08-21 23:18] VITALS: RESP 16
--- NOTE | 2018-08-21 23:31 | P.CONS ---
History of Present Illness - Reason for Consult Consult date: 08/21/18 Abdominal pain, pancreatitis Requesting physician: Anil Lara - Chief Complaint Abdominal pain - History of Present Illness The patient is a very pleasant 38-year-old male with a prior history of diabetes mellitus and prior episodes of pancreatitis presented to the hospital with complaints of abdominal pain. Per the patient he had a squeezing abdominal pain located above the belly button which was unrelenting. The patient's therefore presented to the hospital for further evaluation. He reports for prior episodes of pancreatitis. He reports associated vomiting, and that he was unable to tolerate any food as he would bring it back up. He denies any coffee-ground emesis or hematemesis. He reports his last bowel movement was in the middle of the week last week. He reports associated decrease in oral intake. The patient does have uncontrolled diabetes mellitus. He was found to have a leukocytosis on presentation with a white count of 17.9 which subsequently trended down to 13.2, hemoglobin was normal. His alkaline phosphatase was 55 on presentation, total bilirubin 1.2, AST 27 and ALT 21. Lipase was only minimally elevated at 331. The patient had an ultrasound which showed no cholelithiasis and a normal common bile duct. The patient does have a history of alcohol use but reports that this is intermittent. The patient was found to have uncontrolled blood sugars on presentation. The patient also uses tobacco products on a daily basis. Review of Systems REVIEW OF SYSTEMS: CARDIO: Denies any chest pain or palpitations. PULMONARY: Denies any shortness of breath or wheezing. GENITOURINARY: No dysuria or hematuria. MUSCULOSKELETAL: No weakness reported. SKIN: Denies any new rashes or lesions, jaundice or pallor. PSYCHIATRIC: Denies any depression or anxiety. NEUROLOGY: Denies headache, denies any new focal deficits. EARS: No tinnitus, discharge or new hearing loss. NOSE: No discharge or congestion. EYES: No pain in eyes or change in vision. CONSTITUTIONAL: No recent weight loss. No fever, chills, night sweats. Past Medical History Past Medical History: Coronary Artery Disease (CAD), Diabetes Mellitus, Hyperlipidemia, Hypertension, Myocardial Infarction ([place]) Additional Past Medical History / Comment(s): pancreatitis/ETOH abuse. Other hx: Recent head injury with morris now removed. Last Myocardial Infarction Date:: 2011 History of Any Multi-Drug Resistant Organisms: None Reported Past Surgical History: Heart Catheterization With Stent Additional Past Surgical History / Comment(s): PCI with stent at [facility] [email or web address] had rt hand sx to repair nerve/tendons d/t injury. Past Anesthesia/Blood Transfusion Reactions: No Reported Reaction Date of Last Stent Placement:: 2011 Past Psychological History: Anxiety, Bipolar, Depression Additional Psychological History / Comment(s): He does not drive, his significant other drives. There are 4 children in the home Smoking Status: Current every day smoker Past Alcohol Use History: Occasional Additional Past Alcohol Use History / Comment(s): Pt has hx of ETOH abuse. Patient smokes half a pack per day. He is currently drinking a few beers per day. He states he has cut back. He also smokes 2-3 joints of marijuana per day. Past Drug Use History: Marijuana Additional Drug Use History / Comment(s): daily use of marijuana - Past Family History Mother Family Medical History: CVA/TIA, Diabetes Mellitus, Hypertension Additional Family Medical History / Comment(s): Mother is still living. Father Family Medical History: CVA/TIA Additional Family Medical History / Comment(s): Father is still living. Medications and Allergies Home Medications Medication Instructions Recorded Confirmed Type Aspirin EC [Ecotrin Low Dose] 81 mg PO DAILY #30 tablet. 02/11/17 08/19/18 Rx Atorvastatin [Lipitor] 80 mg PO HS #10 tab 05/22/18 08/19/18 Rx Lisinopril [Zestril] 40 mg PO DAILY 10 Days #10 tab 05/22/18 08/19/18 Rx Allergies Allergy/AdvReac Type Severity Reaction Status Date / Time Mushroom AdvReac Nausea & Verified 08/19/18 11:05 Vomiting shellfish derived [Shellfish] AdvReac Nausea & Verified 08/19/18 11:05 Vomiting Physical Exam Vitals: Vital Signs Temp Pulse Resp BP Pulse Ox 08/21/18 23:18 74 16 08/21/18 23:17 97.8 F 74 16 108/71 98 08/21/18 20:00 97.9 F 61 18 95/57 94 L 08/21/18 16:00 51 L 16 128/87 100 08/21/18 12:00 61 16 128/86 08/21/18 08:00 98.3 F 78 16 130/65 08/21/18 04:00 97.8 F 61 16 118/75 100 08/21/18 00:00 98.4 F 63 16 111/73 100 Intake and Output 08/21/18 08/21/18 08/22/18 14:59 22:59 06:59 Intake Total 860 Balance 860 Intake: Oral 860 Other: Voiding Method Urinal Urinal Urinal Weight 75 kg On physical examination, patient appears comfortable in no apparent distress. HEAD: Normocephalic, atraumatic. EYES: No scleral icterus. No conjunctival injection. MOUTH: No lesions, tongue midline. NECK: Trachea midline, no gross abnormalities. CHEST: Clear to auscultation with no wheezing or rhonchi appreciated. HEART: Regular rate and rhythm. ABDOMEN: Soft, obese. Bowel sounds are positive. No organomegaly. No guarding or rigidity. EXTREMITIES: No pedal edema. SKIN: No rashes, no jaundice. NEUROLOGIC: Alert and oriented x3. No focal deficits. Results CBC & Chem 7: 08/20/18 06:06 08/21/18 08:57 Labs: Abnormal Lab Results - Last 24 Hours (Table) 08/20/18 08/21/18 08/21/18 Range/Units 06:06 05:44 08:57 Sodium 132 L (137-145) mmol/L Glucose 182 H (74-99) mg/dL POC Glucose (mg/dL) 203 H (75-99) mg/dL Hemoglobin A1c 11.1 H (4.0-6.0) % Total Protein 6.2 L (6.3-8.2) g/dL Lipase 331 H (23-300) U/L 08/21/18 08/21/18 08/21/18 Range/Units 11:26 11:44 16:25 Sodium (137-145) mmol/L Glucose (74-99) mg/dL POC Glucose (mg/dL) 69 L 73 L 180 H (75-99) mg/dL Hemoglobin A1c (4.0-6.0) % Total Protein (6.3-8.2) g/dL Lipase (23-300) U/L US - abdomen: report reviewed (Ultrasound abdomen with no cholelithiasis or dilated common bile duct noted.) Assessment and Plan (1) Acute pancreatitis Narrative/Plan: Presenting with typical abdominal pain and only mildly elevated lipase. He does have a prior history of pancreatitis and continues to drink alcohol and smoke tobacco products daily both of which are toxic to the pancreas. This is been explained to the patient in great detail and that lifestyle modifications are needed in order to avoid future recurrences of pancreatitis. No evidence of cholelithiasis/choledocholithiasis on ultrasound imaging. Current Visit: Yes Status: Acute Code(s): K85.90 - ACUTE PANCREATITIS WITHOUT NECROSIS OR INFECTION, UNSP SNOMED Code(s): 579285225 (2) DKA (diabetic ketoacidoses) Current Visit: Yes Status: Acute Code(s): E13.10 - OTH DIABETES MELLITUS WITH KETOACIDOSIS WITHOUT COMA SNOMED Code(s): 552193118 (3) Abdominal pain Current Visit: No Status: Acute Code(s): R10.9 - UNSPECIFIED ABDOMINAL PAIN SNOMED Code(s): 83754642 Plan: Supportive care Currently liquids ordered, advance as tolerated Tobacco and alcohol abstinence Take glucose control Triglycerides pending Ultrasound abdomen reviewed Thank you for allowing us to participate in the care of this patient we will continue to follow
[2018-08-22] MEDS: MORPHINE SULFATE 4 MG/ML SYRINGE IVP PRN ×2 (00:30→04:15)
[2018-08-22] MEDS: LORazepam 2 MG/ML INJ IV PRN (03:01)
[2018-08-22 05:24] VITALS: TEMP 97.6
[2018-08-22 06:35] LABS: Glucose,Whole Blood 281 mg/dL (75-99)
[2018-08-22] MEDS: INSULIN ASPART 100 UNIT/ML 1 ML 10 ML VIAL SQ SCH ×4 (06:41→12:46)
[2018-08-22] MEDS: SODIUM CHLORIDE 0.9% 1,000 ML IV SCH (06:41)
[2018-08-22 06:48] LABS: ALT 26 U/L (21-72); AST 23 U/L (17-59); Albumin 3.3 g/dL (3.5-5.0); Alkaline Phosphatase 64 U/L (38-126); Anion Gap 8 mmol/L; Blood Urea Nitrogen 8 mg/dL (9-20); Calcium 8.8 mg/dL (8.4-10.2); Carbon Dioxide 25 mmol/L (22-30); Chloride 100 mmol/L (98-107); Glucose 210 mg/dL (74-99); Lipase 261 U/L (23-300); Potassium 3.9 mmol/L (3.5-5.1); Sodium 133 mmol/L (137-145); Total Bilirubin 0.7 mg/dL (0.2-1.3)
[2018-08-22] MEDS: HYDROcodone/APAP 5-325MG 1 EACH TAB PO PRN ×2 (08:22→12:51)
[2018-08-22] MEDS: LISINOPRIL 20 MG TAB PO SCH (08:25)
[2018-08-22] MEDS: ASPIRIN 81 MG PO SCH (08:25)
[2018-08-22] MEDS: HEPARIN SODIUM,PORCINE 5,000 UNIT/ML 1 ML VIAL SQ SCH (08:25)
[2018-08-22] MEDS: FAMOTIDINE 20 MG/2 ML VIAL IV SCH (08:25)
[2018-08-22] MEDS: cloNIDine HCL 0.1 MG TAB PO SCH (08:25)
[2018-08-22] MEDS: NICOTINE 21MG/24HR PATCH TRANSDERM SCH (08:35)
[2018-08-22] MEDS: INSULIN DETEMIR 100 UNIT/ML 10 ML VIAL SQ SCH (08:54)
--- NOTE | 2018-08-22 11:29 | ECHOF ---
Referral Reason:chest pain MEASUREMENTS -------- HEIGHT: 182.9 cm WEIGHT: 74.8 kg BP: RVIDd: 3.2 cm (< 3.3) IVSd: 1.3 cm (0.6 - 1.1) LVIDd: 4.3 cm (3.9 - 5.3) LVPWd: 1.2 cm (0.6 - 1.1) IVSs: 1.6 cm LVIDs: 3.6 cm LVPWs: 1.3 cm LAESV Index (A-L): 17.89 ml/m Ao Diam: 4.2 cm (2.0 - 3.7) AV Cusp: 2.0 cm (1.5 - 2.6) LA Diam: 2.5 cm (2.7 - 3.8) MV EXCURSION: 19.089 mm (> 18.000) MV EF SLOPE: 104 mm/s (70 - 150) EPSS: 1.0 cm MV E Lopez: 0.31 m/s MV DecT: 408 ms MV A Lopez: 0.45 m/s MV E/A Ratio: 0.70 RAP: 5.00 mmHg RVSP: 19.39 mmHg FINDINGS -------- Resting bradycardia (HR<60bpm). This was a technically good study. The left ventricular size is normal. There is mild concentric left ventricular hypertrophy. Overa ll left ventricular systolic function is moderately impaired with, an EF between 35 - 40 %. There i s suspected spontaneous contrast seen in the left ventricle. The right ventricle is normal in size and function. The left atrium is normal in size. The right atrium is normal in size. The aortic valve is trileaflet, and appears structurally normal. No aortic stenosis or regurgitation. Mild mitral annular calcification present. There is trace mitral regurgitation. Trace tricuspid regurgitation present. The right ventricular systolic pressure, as measured by Dopp ler, is 19.39mmHg. Pulmonic valve appears structurally normal. The aortic root and ascending aorta are dilated measuring up t0 4.2 cm. Normal inferior vena cava with normal inspiratory collapse consistent with estimated right atrial pre ssure of 5 mmHg. The pericardium is normal. CONCLUSIONS -------- 1. Resting bradycardia (HR<60bpm). 2. This was a technically good study. 3. The left ventricular size is normal. 4. There is mild concentric left ventricular hypertrophy. 5. Overall left ventricular systolic function is moderately impaired with, an EF between 35 - 40 %. 6. There is suspected spontaneous contrast seen in the left ventricle. 7. The right ventricle is normal in size and function. 8. The left atrium is normal in size. 9. The right atrium is normal in size. 10. The aortic valve is trileaflet, and appears structurally normal. No aortic stenosis or regurgitat ion. 11. Mild mitral annular calcification present. 12. There is trace mitral regurgitation. 13. Trace tricuspid regurgitation present. 14. The right ventricular systolic pressure, as measured by Doppler, is 19.39mmHg. 15. Pulmonic valve appears structurally normal. 16. The aortic root and ascending aorta are dilated measuring up to 4.2 cm. 17. Normal inferior vena cava with normal inspiratory collapse consistent with estimated right atrial pressure of 5 mmHg. 18. The pericardium is normal. PUNCH OPERATOR: Lucia Menjivar RDCS
[2018-08-22 11:31] LABS: Glucose,Whole Blood 93 mg/dL (75-99)
--- NOTE | 2018-08-22 12:13 | P.PN ---
Subjective Progress Note Date: 08/22/18 Principal diagnosis: pancreatitis feels a little better. Still experiencing midepigastric left upper quadrant pain. Lipase normalized. Afebrile. Objective - Vital Signs Vital signs: Vital Signs Temp 97.6 F 08/22/18 04:00 Pulse 55 L 08/22/18 08:00 Resp 16 08/22/18 11:24 BP 188/108 08/22/18 08:00 Pulse Ox 98 08/22/18 08:00 Intake & Output 08/21/18 08/22/18 08/22/18 18:59 06:59 18:59 Intake Total 860 800 240 Output Total 700 1500 Balance 860 100 -1260 Weight 75 kg 77.8 kg Intake: Intake, IV Titration 800 Amount Sodium Chloride 0.9% 1, 800 000 ml @ 100 mls/hr IV . Q10H [facility] Rx#:[id number] Oral 860 240 Output: Urine 700 1500 Other: Voiding Method Urinal Urinal Urinal # Voids 1 # Bowel Movements 0 - Exam General appearance: The patient is alert, oriented, in no acute distress. HET: Head is normocephalic and atraumatic. Pupils are equal and reactive. Oropharynx is clear without lesions. Neck: Supple without lymphadenopathy. Trachea midline. Heart: S1 S2. Regular rate and rhythm. Lungs: No crackles or wheezes are heard. Abdomen: Soft, midepigastric left upper quadrant tenderness mild, nondistended with bowel sounds. No peritoneal signs. No palpable organomegaly or masses. Extremities: Normal skin color and turgor. No cyanosis, rash, ulceration, clubbing, or edema. Radial and pedal pulses are 2/4 bilaterally. Neurological: No focal deficits. Strength and sensation are grossly intact. - Labs CBC & Chem 7: 08/20/18 06:06 08/22/18 05:57 Labs: Abnormal Lab Results - Last 24 Hours (Table) 08/20/18 08/21/18 08/22/18 Range/Units 06:06 16:25 05:57 Sodium 133 L (137-145) mmol/L BUN 8 L (9-20) mg/dL Glucose 210 H (74-99) mg/dL POC Glucose (mg/dL) 180 H (75-99) mg/dL Hemoglobin A1c 11.1 H (4.0-6.0) % Total Protein 6.0 L (6.3-8.2) g/dL Albumin 3.3 L (3.5-5.0) g/dL 08/22/18 Range/Units 06:34 Sodium (137-145) mmol/L BUN (9-20) mg/dL Glucose (74-99) mg/dL POC Glucose (mg/dL) 281 H (75-99) mg/dL Hemoglobin A1c (4.0-6.0) % Total Protein (6.3-8.2) g/dL Albumin (3.5-5.0) g/dL Assessment and Plan (1) Acute pancreatitis Current Visit: Yes Status: Acute Code(s): K85.90 - ACUTE PANCREATITIS WITHOUT NECROSIS OR INFECTION, UNSP SNOMED Code(s): 061261887 (2) Alcohol abuse Current Visit: Yes Status: Acute Code(s): F10.10 - ALCOHOL ABUSE, UNCOMPLICATED SNOMED Code(s): 54603830 (3) DKA (diabetic ketoacidoses) Current Visit: Yes Status: Acute Code(s): E13.10 - OTH DIABETES MELLITUS WITH KETOACIDOSIS WITHOUT COMA SNOMED Code(s): 003475204 Plan: Continue symptomatic supportiver measures. Discharge per medicine. Alcohol abstinence advised. Assessment and plan a care discussed with Dr. Subramanian
--- NOTE | 2018-08-22 14:03 | P.PN ---
Subjective Progress Note Date: 08/22/18 38-year-old seen this morning. Reports feeling a little better has been up in the room but continues to have mild midepigastric left quadrant abdominal pain. Lipase is down to 261 on admission 2413 did reinforce the need to stop smoking cigarettes and drinking alcohol as this can cause an exacerbation of his pancreatitis. Objective - Vital Signs Vital signs: Vital Signs Temp 97.6 F 08/22/18 04:00 Pulse 55 L 08/22/18 08:00 Resp 16 08/22/18 11:24 BP 188/108 08/22/18 08:00 Pulse Ox 98 08/22/18 08:00 Intake & Output 08/21/18 08/22/18 08/22/18 18:59 06:59 18:59 Intake Total 860 800 240 Output Total 700 1500 Balance 860 100 -1260 Weight 75 kg 77.8 kg Intake: Intake, IV Titration 800 Amount Sodium Chloride 0.9% 1, 800 000 ml @ 100 mls/hr IV . Q10H [facility] Rx#:[id number] Oral 860 240 Output: Urine 700 1500 Other: Voiding Method Urinal Urinal Urinal # Voids 1 # Bowel Movements 0 - Exam Physical exam 38-year-old male resting in bed appears in no acute distress Lungs adequate air movement bilaterally on room air no cough noted Heart S1-S2 audible regular currently denying chest pain when questioned Abdomen non-distended bowel tones active no guarding nontender tolerating diet no nausea no vomiting Extremities no edema - Labs CBC & Chem 7: 08/20/18 06:06 08/22/18 05:57 Labs: Abnormal Lab Results - Last 24 Hours (Table) 08/21/18 08/22/18 08/22/18 Range/Units 16:25 05:57 06:34 Sodium 133 L (137-145) mmol/L BUN 8 L (9-20) mg/dL Glucose 210 H (74-99) mg/dL POC Glucose (mg/dL) 180 H 281 H (75-99) mg/dL Total Protein 6.0 L (6.3-8.2) g/dL Albumin 3.3 L (3.5-5.0) g/dL Assessment and Plan Assessment: Impression History of coronary artery disease prior stenting to the LAD in 2017 Prior Heart catheterization showed a patent stent to the LAD CAT scan abdomen and pelvis on admission showed no evidence of a pulmonary emboli Midepigastric pain present on admission suspect due to acute alcohol-induced pancreatitis Chronic alcohol intake daily Chronic marijuana use current every day smoker Present on admission hyperglycemia Recurrent pancreatitis attacks following secondary to alcohol abuse drinking daily consumption Ultrasound of the abdomen was negative for gallstones Electrolyte imbalance hypokalemia Plan From surgical perspective felt to be appropriate to be discharged defer to the timing to the attending no surgical intervention needed Recommend alcohol abstinence Smoking cessation information provided advised to stop smoking cigarettes DVT and GI prophylaxis The above impression and plan of care have been discussed and directed by signing physician. Mayra Ovalle nurse practitioner acting as scribe for signing physician.
[2018-08-22 14:51] VITALS: BP 162/103; PULSE 70
== END 2018-08-22 14:59 | disposition home or self-care (01) | DRG 438 ==
LOC: EC 03:46 → 3SCARD 05:53
PROVIDERS: ADMIT Family Medicine; ATTEND Family Medicine
DX: K85.20 Alcohol induced acute pancreatitis without necrosis or infection (principal); E11.10 Type 2 diabetes mellitus with ketoacidosis without coma; F10.20 Alcohol dependence, uncomplicated; F17.210 Nicotine dependence, cigarettes, uncomplicated; I10 Essential (primary) hypertension; I25.10 Atherosclerotic heart disease of native coronary artery without angina pectoris; E86.0 Dehydration; E78.5 Hyperlipidemia, unspecified; I25.2 Old myocardial infarction; K86.0 Alcohol-induced chronic pancreatitis; Z79.82 Long term (current) use of aspirin; Z79.899 Other long term (current) drug therapy; Z82.49 Family history of ischemic heart disease and other diseases of the circulatory system; Z83.3 Family history of diabetes mellitus; Z95.5 Presence of coronary angioplasty implant and graft; Z91.013 Allergy to seafood; Z91.018 Allergy to other foods; E11.65 Type 2 diabetes mellitus with hyperglycemia; R07.89 Other chest pain
CPT/HCPCS: 36415; 71275; 76705; 80048; 80051; 80053; 81001; 82009; 82550; 82553; 82565; 82947; 83036; 83605; 83690; 83735; 84100; 84484; 84520; 85025; 85610; 85730; 87086; 93005; 93306; 96361; 96374; 96375; 96376; 99291